=== PATIENT | female | born 1980 | race Caucasian/White ===

== ENCOUNTER → 2021-03-24 14:32 | Outpatient (BNVA) | payer OTHER, SELFPAY | PROVIDERS: PCP Family Medicine; Visit Provider Surgery Vascular Surgery | DX: I73.9 Peripheral vascular disease, unspecified (principal); E11.9 Type 2 diabetes mellitus without complications; E78.00 Pure hypercholesterolemia, unspecified; I83.11 Varicose veins of right lower extremity with inflammation; F17.210 Nicotine dependence, cigarettes, uncomplicated; Z88.2 Allergy status to sulfonamides | CPT/HCPCS: 99202 ==

== ENCOUNTER 2021-04-16 10:24 | Outpatient (REF) | payer OTHER, SELFPAY ==
--- NOTE | ~2021-04-16 | US_ITS ---
EXAMINATION: BILATERAL LOWER EXTREMITY VENOUS ULTRASOUND (Reflux Exam) CLINICAL INDICATION: This is a 40-year-old female with venous insufficiency and varicose veins. COMPARISON: None. TECHNIQUE: Color flow triplex imaging and compression Doppler was performed to evaluate both the deep and the superficial systems bilaterally. To evaluate the superficial system, the examination was performed in the upright position. Color-flow Doppler ultrasound and compression ultrasound were utilized. In addition, maneuvers were utilized to demonstrate reflux. FINDINGS: 1. DEEP VENOUS ULTRASOUND OF THE RIGHT LOWER EXTREMITY: Common Femoral Vein: Compressible, normal respiratory variation and augmented flow. Femoral vein: Compressible, normal color flow and augmentation. Popliteal Vein: Compressible, normal augmentation. Deep Reflux: There is no evidence of reflux in the deep system in either the common femoral vein or the popliteal vein. . There is no evidence of a Boucher's cyst. 2. SUPERFICIAL ULTRASOUND WITH DOPPLER OF RIGHT LOWER EXTREMITY GREAT SAPHENOUS VEIN: Saphenofemoral junction: 0.6 cm. The reflux time is 1888 ms. Mid thigh: 0.5 cm. The reflux time is 2304 ms. Above knee: 0.5 cm. The reflux time is 3392 ms. Below knee: 0.4 cm. The reflux time is 2024 ms Mid calf: 0.3 cm. The reflux time is 700 ms. Ankle: 0.2 cm. The reflux time is 1236 ms GSV REFLUX: There is reflux throughout the great saphenous vein starting at the saphenofemoral junction. DUPLICATED GREAT SAPHENOUS VEIN: There is a duplicated lateral great saphenous vein measures 0.3 cm without reflux. SMALL SAPHENOUS VEIN: Upper: 0.1 cm Lower: Your 0.1 cm SSV REFLUX: No evidence of reflux. VEIN OF GIACOMINI: None Imaged. PERFORATORS: There is a 0.2 cm distal thigh diamond cleaner with the reflux time 1032 ms. VARICOSITIES: There are 0.6 cm varicose veins at the knee with reflux time of 2656 ms. There are mid calf 0.2 cm varicose veins with reflux time 1916 ms. 3. DEEP VENOUS ULTRASOUND OF THE LEFT LOWER EXTREMITY: Common Femoral Vein: Compressible, normal respiratory variation and augmented flow. Femoral vein: Compressible, normal color flow and augmentation. Popliteal Vein: Compressible, normal augmentation. Deep Reflux: There is no evidence of reflux in the deep system in either the common femoral vein or the popliteal vein. There is no evidence of a Boucher's cyst. 4. SUPERFICIAL ULTRASOUND WITH DOPPLER OF LEFT LOWER EXTREMITY GREAT SAPHENOUS VEIN: Saphenofemoral junction: 0.5 cm. The reflux time is 1856 ms Mid thigh: 0.2 cm. There is no reflux. Above knee: 0.2 cm. There is no reflux. Below knee: 0.3 cm. The reflux time is 3252 ms. Mid calf: 0.2 cm. The reflux time is 2012 ms. Ankle: 0.2 cm. There is no reflux. GSV REFLUX: There is reflux in the great saphenous vein beginning at the saphenofemoral junction. DUPLICATED GREAT SAPHENOUS VEIN: There is a duplicated lateral great saphenous vein measuring 0.5 cm without evidence of reflux. SMALL SAPHENOUS VEIN: Upper: 0.2 cm Lower: 0.1 cm SSV REFLUX: No evidence of reflux. VEIN OF GIACOMINI: None Imaged. PERFORATORS: None Imaged VARICOSITIES: There are 0.2 cm varicose veins in the mid thigh, proximal thigh, at the knee and the mid calf with greater than 3 seconds of reflux throughout. US/US venous duplex LE BI IMPRESSION: 1. There is a patent right great saphenous vein with reflux throughout but beginning at the saphenofemoral junction. 2. There is a patent right small saphenous vein without evidence of reflux. 3. There are varicose veins measuring 0.6 cm at the knee with greater than 2656 ms of reflux. 4. There is a patent left great saphenous vein with reflux throughout but beginning at the saphenofemoral junction. 5. There is a patent left small saphenous vein without evidence of reflux. 6. There are 0.2 cm varicose veins throughout the left lower extremity with greater than 3 seconds of reflux.
== END 2021-04-16 10:25 | disposition home or self-care (01) ==
LOC: HO.US 10:24
PROVIDERS: Visit Provider Surgery Vascular Surgery
DX: I83.893 Varicose veins of bilateral lower extremities with other complications (principal); I83.11 Varicose veins of right lower extremity with inflammation
CPT/HCPCS: 93970

== ENCOUNTER 2021-04-27 13:30 | Outpatient (REF) | payer OTHER, SELFPAY ==
--- NOTE | ~2021-04-27 | US_ITS ---
EXAMINATION: COLOR-FLOW DUPLEX IMAGING OF THE BILATERAL LOWER EXTREMITY ARTERIAL SYSTEM. VELOCITY MEASUREMENTS THROUGHOUT THE FEMORAL ARTERIES WITH ANKLE-BRACHIAL PERIPHERAL ARTERIAL TESTING. Interventional Radiologist: Miguel Wray M.D., F.S.I.R., F.A.C.R. CLINICAL INFORMATION: This is a 40-year-old female with history of diabetes. Peripheral vascular disease. Claudication. RIGHT FEMORAL RUNOFF VELOCITIES: The right common femoral artery measures 232 cm/s and triphasic. The right profunda femoral artery is 152 cm/s and is triphasic. Right proximal superficial femoral artery measures 158 cm/s and monophasic. Mid superficial femoral artery is 286 cm/s and monophasic. Distal right superficial femoral artery measures 103 cm/s and is monophasic. Right popliteal velocity measures 68 cm/s and is triphasic. The posterior tibial artery velocity measures 42 cm/s and was monophasic. The right ankle-brachial index is 0.57. The waveforms appear depressed. LEFT FEMORAL RUNOFF VELOCITIES: The left common femoral artery measures 190 cm/s and triphasic. The left profunda femoral artery is 182 cm/s and is triphasic. Left proximal superficial femoral artery measures 162 cm/s and triphasic. Mid superficial femoral artery is 64 cm/s and biphasic. Distal left superficial femoral artery measures 101 cm/s and is monophasic. Left popliteal velocity measures 47 cm/s and is biphasic. The posterior tibial artery velocity measures 44 cm/s and was monophasic. The left ankle-brachial index is 0.46. The waveforms appear to press. US/US [place] complete IMPRESSION: 1. Abnormal peripheral arterial testing with abnormal bilateral ankle-brachial index and velocity measurements. 2. There is likely a high-grade right superficial femoral artery stenoses. 3. There is likely hemodynamically significant stenosis within the right common femoral artery. 4. There is likely hemodynamically significant stenosis within the left superficial femoral artery.
--- NOTE | ~2021-04-27 | US_ITS ---
EXAMINATION: COLOR-FLOW DUPLEX IMAGING OF THE BILATERAL LOWER EXTREMITY ARTERIAL SYSTEM. VELOCITY MEASUREMENTS THROUGHOUT THE FEMORAL ARTERIES WITH ANKLE-BRACHIAL PERIPHERAL ARTERIAL TESTING. Interventional Radiologist: Miguel Wray M.D., F.S.I.R., F.A.C.R. CLINICAL INFORMATION: This is a 40-year-old female with history of diabetes. Peripheral vascular disease. Claudication. RIGHT FEMORAL RUNOFF VELOCITIES: The right common femoral artery measures 232 cm/s and triphasic. The right profunda femoral artery is 152 cm/s and is triphasic. Right proximal superficial femoral artery measures 158 cm/s and monophasic. Mid superficial femoral artery is 286 cm/s and monophasic. Distal right superficial femoral artery measures 103 cm/s and is monophasic. Right popliteal velocity measures 68 cm/s and is triphasic. The posterior tibial artery velocity measures 42 cm/s and was monophasic. The right ankle-brachial index is 0.57. The waveforms appear depressed. LEFT FEMORAL RUNOFF VELOCITIES: The left common femoral artery measures 190 cm/s and triphasic. The left profunda femoral artery is 182 cm/s and is triphasic. Left proximal superficial femoral artery measures 162 cm/s and triphasic. Mid superficial femoral artery is 64 cm/s and biphasic. Distal left superficial femoral artery measures 101 cm/s and is monophasic. Left popliteal velocity measures 47 cm/s and is biphasic. The posterior tibial artery velocity measures 44 cm/s and was monophasic. The left ankle-brachial index is 0.46. The waveforms appear to press. US/US arterial duplex LE BI IMPRESSION: 1. Abnormal peripheral arterial testing with abnormal bilateral ankle-brachial index and velocity measurements. 2. There is likely a high-grade right superficial femoral artery stenoses. 3. There is likely hemodynamically significant stenosis within the right common femoral artery. 4. There is likely hemodynamically significant stenosis within the left superficial femoral artery.
== END 2021-04-27 13:31 | disposition home or self-care (01) ==
LOC: HO.US 13:30
PROVIDERS: Visit Provider Surgery Vascular Surgery
DX: I70.213 Atherosclerosis of native arteries of extremities with intermittent claudication, bilateral legs (principal)
CPT/HCPCS: 93923; 93925

== ENCOUNTER → 2021-04-30 11:12 | Outpatient (BNVA) | payer OTHER, SELFPAY | PROVIDERS: PCP Family Medicine; Visit Provider Surgery Vascular Surgery | DX: I83.11 Varicose veins of right lower extremity with inflammation (principal); I73.9 Peripheral vascular disease, unspecified; E11.9 Type 2 diabetes mellitus without complications; E78.00 Pure hypercholesterolemia, unspecified; F17.210 Nicotine dependence, cigarettes, uncomplicated; Z88.2 Allergy status to sulfonamides | CPT/HCPCS: 99212 ==

== ENCOUNTER 2021-05-07 08:31 | Outpatient (REF) | payer OTHER, SELFPAY ==
[2021-05-07 11:36] LABS: Alanine Aminotransferase 17 U/L (0-31); Albumin Level 3.8 g/dL (3.5-5.0); Alkaline Phosphatase 105 U/L (39-117); Anion Gap 15 (12-20); Aspartate Amino Transferase 12 U/L (5-31); Bilirubin Total 0.5 mg/dL (0.0-1.0); Blood Urea Nitrogen 12 mg/dL (9-16); Calcium 9.2 mg/dL (8.4-10.2); Carbon Dioxide 23 mmol/L (22-29); Chloride 104 mmol/L (96-108); Cholesterol 195 mg/dL; Estimated Glomerular Filt Rate > 60; Glucose Fasting 240 mg/dL (60-99); HDL Cholesterol 42 mg/dL; LDL Cholesterol Calculated 103 mg/dl; Potassium 4.6 mmol/L (3.3-5.1); Sodium 137 mmol/L (135-145); Total Protein 6.7 g/dL (6.5-8.0); Triglycerides 250 mg/dL
[2021-05-07 11:49] LABS: TSH reflex Free T4 0.68 uIU/mL (0.32-4.0)
[2021-05-07 12:12] LABS: Creatinine Urine 44.58 mg/dL; Microalbum/Creatinine Ratio Ur 224.3 ug/mg cr
== END 2021-05-07 08:32 | disposition home or self-care (01) ==
LOC: HO.WFDLDS 08:31
PROVIDERS: Visit Provider Family Medicine
DX: Z00.00 Encounter for general adult medical examination without abnormal findings (principal); E11.9 Type 2 diabetes mellitus without complications; E78.00 Pure hypercholesterolemia, unspecified; I10 Essential (primary) hypertension; I73.9 Peripheral vascular disease, unspecified
CPT/HCPCS: 36415; 80053; 80061; 82043; 84443

== ENCOUNTER → 2021-05-08 08:28 | Outpatient (BNVA) | payer OTHER, SELFPAY | PROVIDERS: PCP Family Medicine; Referring Provider Family Medicine; Visit Provider Surgery Vascular Surgery | DX: I83.11 Varicose veins of right lower extremity with inflammation (principal) | CPT/HCPCS: 36482 ==

== ENCOUNTER 2021-05-11 10:57 | Outpatient (REF) | payer OTHER, SELFPAY ==
--- NOTE | ~2021-05-11 | US_ITS ---
EXAMINATION: US VENOUS ULTRASOUND WITH DOPPLER LOWER EXTREMITY, RIGHT CLINICAL INFORMATION: Post venous procedure COMPARISON: Previous lower extremity ultrasound 04/16/2021 TECHNIQUE: Ultrasound of the deep veins is performed from the hip to the calf with compression sonography and color and pulse Doppler assessment. Spectral analysis with color-flow imaging is performed. FINDINGS: There is normal venous compression and respiratory variation and augmented flow. The visualized common femoral vein, superficial femoral vein, profunda femoral vein, popliteal vein, and the trifurcation region shows no evidence of deep venous thrombosis. There is echogenic material seen in the greater saphenous vein post venous procedure. This is 4.1 cm from the saphenofemoral junction. US/US venous duplex LE RT IMPRESSION: No DVT demonstrated in the right lower extremity.
== END 2021-05-11 10:58 | disposition home or self-care (01) ==
LOC: HO.US 10:57
PROVIDERS: Visit Provider Surgery Vascular Surgery
DX: M79.604 Pain in right leg (principal)
CPT/HCPCS: 93971

== ENCOUNTER → 2021-06-09 10:57 | Outpatient (BNVA) | payer OTHER, SELFPAY | PROVIDERS: PCP Family Medicine; Visit Provider Surgery Vascular Surgery ==

== ENCOUNTER 2021-08-24 12:15 | Outpatient (REF) | payer OTHER, SELFPAY ==
[2021-08-24 14:13] LABS: Estimated Average Glucose 194 mg/dL; Hemoglobin A1c % 8.4 %
== END 2021-08-24 12:16 | disposition home or self-care (01) ==
LOC: HO.WFDLDS 12:15
PROVIDERS: Visit Provider Family Medicine
DX: R73.01 Impaired fasting glucose (principal)
CPT/HCPCS: 36415; 83036

== ENCOUNTER 2021-12-21 09:52 | Outpatient (REF) | payer OTHER, SELFPAY ==
--- NOTE | ~2021-12-21 | US_ITS ---
EXAMINATION: NONINVASIVE ASSESSMENT OF THE ARTERIES OF BOTH LOWER EXTREMITIES INCLUDING PVR EXAM AND BILATERAL LOWER EXTREMITY DUPLEX. CLINICAL INFORMATION: Peripheral vascular disease COMPARISON: Arterial duplex on 04/27/2021 TECHNIQUE: Ankle pulse volume recordings, ankle pressure measurements and ankle brachial indices were obtained of the lower extremity arterial system bilaterally in addition to duplex Doppler techniques with wave form analysis and measurement of velocities in the common femoral, profunda femoral, superficial femoral, popliteal, tibial and peroneal arteries. The study was performed only at rest. FINDINGS: RIGHT LEG 1. THE RIGHT ANKLE-BRACHIAL INDEX IS: 0.57 (higher of the DP/PT) >0.97-1.25 = normal - no significant arterial disease 0.75-0.96 = mild peripheral arterial disease 0.5-0.74 = moderate peripheral arterial disease <0.50 = severe peripheral arterial disease <0.30 = critical arterial disease 2. SEGMENTAL PRESSURES (mmHg): Ankle: PT 98, DP 86 3. PVR WAVEFORMS: Ankle: Monophasic 4. DIRECT DUPLEX: Common femoral artery: 190 cm/s, monophasic Profunda femoris artery: 128 cm/s, biphasic Superficial femoral artery (proximal): 121 cm/s, monophasic Superficial femoral artery (mid): 127 cm/s, monophasic Superficial femoral artery (distal): 110 cm/s, monophasic Proximal Popliteal artery: 68 cm/s, monophasic Mid posterior tibial artery: 25 cm/s, monophasic There is a right SFA collateral in the mid thigh with retrograde flow. LEFT LE. THE LEFT ANKLE-BRACHIAL INDEX IS: 0.48 (higher of the DP/PT) >0.97-1.25 = normal - no significant arterial disease 0.75-0.96 = mild peripheral arterial disease 0.5-0.74 = moderate peripheral arterial disease <0.50 = severe peripheral arterial disease <0.30 = critical arterial disease 2. SEGMENTAL PRESSURES: Ankle: PT 83, DP 79 3. PVR WAVEFORMS: Ankle: Monophasic 4. DIRECT DUPLEX: Common femoral artery: 254 cm/s, monophasic Profunda femoris artery: 120 cm/s, monophasic Superficial femoral artery (proximal): 182 cm/s, monophasic Superficial femoral artery (mid): 65 cm/s, monophasic Superficial femoral artery (distal): 67 cm/s, monophasic Proximal Popliteal artery: 45 cm/s, monophasic Mid posterior tibial artery: 32 cm/s, monophasic There is a left SFA collateral in the mid thigh. US/US arterial duplex LE BI IMPRESSION: 1. Bilateral decreased MONROE suggesting bilateral moderate peripheral arterial disease. 2. Hemodynamically significant stenosis in the bilateral common femoral arteries. 3. Monophasic flow throughout the bilateral lower extremities suggests proximal stenosis. Consider CTA or MRA for further evaluation of the abdominal aorta and iliofemoral arteries.
== END 2021-12-21 09:53 | disposition home or self-care (01) ==
LOC: HO.US 09:52
PROVIDERS: Visit Provider Surgery Vascular Surgery
DX: I73.9 Peripheral vascular disease, unspecified (principal)
CPT/HCPCS: 93925

== ENCOUNTER → 2021-12-31 13:11 | Outpatient (BNVA) | payer OTHER, SELFPAY | PROVIDERS: PCP Family Medicine; Visit Provider Surgery Vascular Surgery | DX: I73.9 Peripheral vascular disease, unspecified (principal); E11.9 Type 2 diabetes mellitus without complications | CPT/HCPCS: 99212 ==

== ENCOUNTER 2022-01-15 07:09 | Outpatient (REF) | payer OTHER, SELFPAY ==
--- NOTE | ~2022-01-15 | XR_ITS ---
EXAMINATION: BILATERAL SHOULDER. CLINICAL INFORMATION: Pain and bladder. COMPARISON: None TECHNIQUE: 3 views each shoulder. FINDINGS: Right shoulder: There is no visible acute fracture, dislocation or subluxation. The glenohumeral and AC joint space is maintained normal. No bony erosive changes seen. The soft tissues are normal. Left shoulder: There is no visible acute fracture, dislocation or subluxation seen. There is no bony erosive changes. The soft tissues are normal. XR/XR shoulder LT min 2V IMPRESSION: Unremarkable bilateral shoulder exam.
--- NOTE | ~2022-01-15 | XR_ITS ---
EXAMINATION: BILATERAL SHOULDER. CLINICAL INFORMATION: Pain and bladder. COMPARISON: None TECHNIQUE: 3 views each shoulder. FINDINGS: Right shoulder: There is no visible acute fracture, dislocation or subluxation. The glenohumeral and AC joint space is maintained normal. No bony erosive changes seen. The soft tissues are normal. Left shoulder: There is no visible acute fracture, dislocation or subluxation seen. There is no bony erosive changes. The soft tissues are normal. XR/XR shoulder RT min 2V IMPRESSION: Unremarkable bilateral shoulder exam.
== END 2022-01-15 07:10 | disposition home or self-care (01) ==
LOC: HO.HOSX 07:09
PROVIDERS: Visit Provider Physician Assistant
DX: M75.01 Adhesive capsulitis of right shoulder (principal); M75.02 Adhesive capsulitis of left shoulder
CPT/HCPCS: 73030; 99202

== ENCOUNTER → 2022-02-12 10:41 | Outpatient (BNVA) | payer OTHER, SELFPAY | PROVIDERS: PCP Family Medicine; Visit Provider Internal Medicine Endocrinology, Diabetes & Metabolism | DX: E11.65 Type 2 diabetes mellitus with hyperglycemia (principal); Z79.4 Long term (current) use of insulin | CPT/HCPCS: 82947; 99202 ==

== ENCOUNTER 2022-02-25 09:35 | Outpatient (REF) | payer OTHER, SELFPAY ==
[2022-02-25 11:45] LABS: Anion Gap 13 (12-20); Blood Urea Nitrogen 14 mg/dL (9-16); Calcium 8.9 mg/dL (8.4-10.2); Carbon Dioxide 23 mmol/L (22-29); Chloride 104 mmol/L (96-108); Cholesterol 167 mg/dL; Estimated Glomerular Filt Rate > 60; Glucose Random 110 mg/dL (60-115); HDL Cholesterol 41 mg/dL; LDL Cholesterol Calculated 83 mg/dl; Potassium 4.8 mmol/L (3.3-5.1); Sodium 135 mmol/L (135-145); Triglycerides 219 mg/dL
[2022-02-25 11:47] LABS: Creatinine Urine 108.81 mg/dL; Microalbum/Creatinine Ratio Ur 265.6 ug/mg cr
== END 2022-02-25 09:36 | disposition home or self-care (01) ==
LOC: HO.WFDLDS 09:35
PROVIDERS: Visit Provider Internal Medicine Endocrinology, Diabetes & Metabolism
DX: E11.65 Type 2 diabetes mellitus with hyperglycemia (principal); Z79.4 Long term (current) use of insulin
CPT/HCPCS: 36415; 80048; 80061; 82043

== ENCOUNTER → 2022-03-01 08:02 | Outpatient (BNVA) | payer OTHER, SELFPAY | PROVIDERS: PCP Family Medicine; Visit Provider Registered Nurse Diabetes Educator | DX: E11.65 Type 2 diabetes mellitus with hyperglycemia (principal); Z79.4 Long term (current) use of insulin | CPT/HCPCS: 99211 ==

== ENCOUNTER → 2022-03-18 13:28 | Outpatient (BNVA) | payer OTHER, SELFPAY | PROVIDERS: PCP Family Medicine; Visit Provider Registered Nurse Diabetes Educator | DX: E11.65 Type 2 diabetes mellitus with hyperglycemia (principal); Z79.4 Long term (current) use of insulin | CPT/HCPCS: 99211 ==

== ENCOUNTER 2022-04-02 09:00 | Outpatient (RCR) | payer OTHER, SELFPAY | END 2022-05-25 14:36 | disposition home or self-care (01) | LOC: HO.PTWFD 09:00 | PROVIDERS: PCP Family Medicine; Visit Provider Physician Assistant | DX: M75.01 Adhesive capsulitis of right shoulder (principal); M75.02 Adhesive capsulitis of left shoulder; M25.511 Pain in right shoulder | CPT/HCPCS: 97110; 97140; 97161 ==

== ENCOUNTER → 2022-04-05 13:28 | Outpatient (BNVA) | payer OTHER, SELFPAY | PROVIDERS: PCP Family Medicine; Visit Provider Registered Nurse Diabetes Educator | DX: E11.65 Type 2 diabetes mellitus with hyperglycemia (principal); Z79.4 Long term (current) use of insulin | CPT/HCPCS: 99211 ==

== ENCOUNTER → 2022-05-27 13:37 | Outpatient (BNVA) | payer OTHER, SELFPAY | PROVIDERS: PCP Family Medicine; Visit Provider Internal Medicine Endocrinology, Diabetes & Metabolism | DX: E11.65 Type 2 diabetes mellitus with hyperglycemia (principal); Z79.4 Long term (current) use of insulin | CPT/HCPCS: 82947; 99212 ==

== ENCOUNTER 2022-06-22 11:27 | Outpatient (REF) | payer OTHER, SELFPAY ==
[2022-06-22 13:59] LABS: MANUAL DIFF FLAG NO
[2022-06-22 14:04] LABS: Basophils Absolute Auto 0.1 X10*3/uL (0.0-0.2); Basophils Percent Auto 0.5 % (0-2); Eosinophils Absolute Auto 0.8 X10*3/uL (0.0-0.4); Eosinophils Percent Auto 6.4 % (0-4); Hematocrit 36.9 % (37.0-47.0); Hemoglobin 11.9 g/dl (12.0-16.0); Imm Gran Abs Auto 0.04 X10*3/uL (0.00-0.03); Imm Gran Pct Auto 0.3 % (0.0-0.4); Lymphocytes Absolute Auto 2.9 X10*3/uL (1.2-4.9); Lymphocytes Percent Auto 23.1 % (20-40); Mean Corpuscular HGB Conc 32.2 g/dl (31.0-35.0); Mean Corpuscular Hemoglobin 28.9 pg (27.0-33.0); Mean Corpuscular Volume 89.6 fL (80.0-98.0); Mean Platelet Volume 10.5 fL (9.4-12.3); Neutrophils Absolute Auto 7.8 x10*3/uL (2.0-8.3); Neutrophils Percent Auto 61.7 % (45-73); Platelet Count 454 X10*3/uL (160-400); Red Blood Count 4.12 X10*6/uL (4.20-5.50); Red Cell Distribution Width 13.5 % (11.0-16.0); White Blood Count 12.7 X10*3/uL (4.8-10.8)
[2022-06-22 14:12] LABS: Estimated Average Glucose 134 mg/dL; Hemoglobin A1c % 6.3 %
[2022-06-22 14:39] LABS: Alanine Aminotransferase 33 U/L (0-31); Alkaline Phosphatase 90 U/L (39-117); Anion Gap 18 (12-20); Aspartate Amino Transferase 21 U/L (5-31); Bilirubin Total 0.2 mg/dL (0.0-1.0); Blood Urea Nitrogen 11 mg/dL (9-16); Calcium 9.4 mg/dL (8.4-10.2); Carbon Dioxide 25 mmol/L (22-29); Chloride 100 mmol/L (96-108); Estimated Glomerular Filt Rate > 60; Glucose Random 205 mg/dL (60-115); Potassium 4.5 mmol/L (3.3-5.1); Sodium 138 mmol/L (135-145)
[2022-06-22 14:53] LABS: TSH reflex Free T4 0.35 uIU/mL (0.32-4.0)
== END 2022-06-22 11:28 | disposition home or self-care (01) ==
LOC: HO.WFDLDS 11:27
PROVIDERS: Visit Provider Family Medicine
DX: Z00.00 Encounter for general adult medical examination without abnormal findings (principal); E11.65 Type 2 diabetes mellitus with hyperglycemia; Z79.4 Long term (current) use of insulin
CPT/HCPCS: 36415; 80053; 83036; 84443; 85025

== ENCOUNTER → 2022-09-01 09:50 | Outpatient (BNVA) | payer OTHER, SELFPAY | PROVIDERS: PCP Family Medicine; Referring Provider Family Medicine; Visit Provider Internal Medicine Cardiovascular Disease | DX: I48.0 Paroxysmal atrial fibrillation (principal); G47.10 Hypersomnia, unspecified; E11.9 Type 2 diabetes mellitus without complications; Z79.4 Long term (current) use of insulin | CPT/HCPCS: 93005; 99202 ==

== ENCOUNTER → 2022-09-08 09:59 | Outpatient (BNVA) | payer OTHER, SELFPAY | PROVIDERS: PCP Family Medicine; Visit Provider Internal Medicine Endocrinology, Diabetes & Metabolism | DX: E11.65 Type 2 diabetes mellitus with hyperglycemia (principal); Z79.4 Long term (current) use of insulin | CPT/HCPCS: 82947; 99212 ==

== ENCOUNTER → 2022-09-09 10:55 | Outpatient (REF) | payer OTHER, SELFPAY | LOC: HO.SL 10:55 | PROVIDERS: PCP Family Medicine; Visit Provider Internal Medicine Cardiovascular Disease | DX: G47.10 Hypersomnia, unspecified (principal); R06.83 Snoring; I48.0 Paroxysmal atrial fibrillation | CPT/HCPCS: 95806 ==

== ENCOUNTER → 2022-09-23 11:03 | Outpatient (REF) | payer OTHER, SELFPAY ==
--- NOTE | 2022-09-23 11:07 | HM_ITS ---
* Total monitoring time 3 days. * Underlying rhythm is sinus. Average ventricular rate 102/Min. Range 91 to 124/Min. * About 63% the time, rate greater than 100/Min. * Very rare PACs/PVCs. * No significant pauses or AV blocks. * Patient marker used once in association with mild sinus tachycardia. MTDD
== END ==
LOC: HO.CARD 11:03
PROVIDERS: Visit Provider Internal Medicine Cardiovascular Disease
DX: I48.0 Paroxysmal atrial fibrillation (principal)
CPT/HCPCS: 93242

== ENCOUNTER 2022-09-27 13:29 | Outpatient (REF) | payer OTHER, SELFPAY ==
[2022-09-27 14:52] LABS: Appearance Urine Clear; Color Urine Yellow; Glucose Urine UA >=1000 mg/dL (Negative); Leukocyte Esterase Urine Negative (Negative); Nitrite Urine Negative (Negative); Specific Gravity - Urine >= 1.030 (1.005-1.025); UMIC TRIGGER UA YES; Urine Blood Trace (Negative); Urine Ketones Trace mg/dL (Negative); Urine Protein 100 (2+) mg/dL (Neg-Trace)
[2022-09-27 15:00] LABS: Anion Gap 16 (12-20); Blood Urea Nitrogen 9 mg/dL (9-16); Calcium 9.8 mg/dL (8.4-10.2); Carbon Dioxide 26 mmol/L (22-29); Chloride 101 mmol/L (96-108); Estimated Glomerular Filt Rate > 60; Glucose Random 102 mg/dL (60-115); Potassium 4.9 mmol/L (3.3-5.1); Sodium 138 mmol/L (135-145)
[2022-09-27 15:08] LABS: Bacteria Urine Trace (None Seen); Hyaline Casts Urine 0-2 /LPF (0-2); RBC Urine 0-2 /HPF (0-2); WBC Urine 0-5 /HPF (0-5)
[2022-09-27 15:11] LABS: Creatinine Urine 160.66 mg/dL; Microalbum/Creatinine Ratio Ur 242.7 ug/mg cr
[2022-09-27 15:11] LABS: Estimated Average Glucose 128 mg/dL; Hemoglobin A1c % 6.1 %
== END 2022-09-27 13:30 | disposition home or self-care (01) ==
LOC: HO.LAB 13:29
PROVIDERS: PCP Family Medicine; Visit Provider Internal Medicine Endocrinology, Diabetes & Metabolism
DX: E11.65 Type 2 diabetes mellitus with hyperglycemia (principal); I10 Essential (primary) hypertension; Z79.4 Long term (current) use of insulin
CPT/HCPCS: 36415; 80048; 81001; 82043; 83036

== ENCOUNTER → 2022-10-26 09:53 | Outpatient (BNVA) | payer OTHER, SELFPAY | PROVIDERS: PCP Family Medicine; Referring Provider Family Medicine; Visit Provider Internal Medicine Cardiovascular Disease | DX: I48.0 Paroxysmal atrial fibrillation (principal); I10 Essential (primary) hypertension | CPT/HCPCS: 99212 ==

== ENCOUNTER 2022-11-05 09:17 | Outpatient (REF) | payer OTHER, SELFPAY ==
[2022-11-05 12:55] LABS: Influenza A PCR NEGATIVE (Negative); Influenza B PCR NEGATIVE (Negative); Resp Syncy Virus RNA Qual PCR NEGATIVE (Negative); SARS COV2 PCR INHOUSE NEGATIVE (Negative)
== END 2022-11-05 09:18 | disposition home or self-care (01) ==
LOC: HO.LAB 09:17
PROVIDERS: Visit Provider Nurse Practitioner Family
DX: R09.89 Other specified symptoms and signs involving the circulatory and respiratory systems (principal); Z20.822 Contact with and (suspected) exposure to COVID-19
CPT/HCPCS: 0241U

== ENCOUNTER 2022-12-14 09:53 | Outpatient (REF) | payer OTHER, SELFPAY ==
--- NOTE | ~2022-12-14 | US_ITS ---
EXAMINATION: Noninvasive assessment of the bilateral lower extremities with ARTERIAL DUPLEX and ANKLE BRACHIAL INDICES (ABIs). CLINICAL INFORMATION: Peripheral vascular disease TECHNIQUE: Duplex Doppler techniques with waveform analysis and measurement of velocities in the bilateral common femoral, profunda femoris, superficial femoral, popliteal and tibial arteries were performed. Additionally, ankle pulse volume recordings, ankle pressure measurements and ankle brachial indices were obtained of the lower extremity arterial system bilaterally. The study was performed only at rest. COMPARISON: 12/21/2021 and 04/27/2021 FINDINGS: DIRECT DUPLEX DOPPLER FINDINGS: RIGHT LEG: Common femoral artery: 223 cm/s, phasicity: Triphasic Profunda femoris artery: 145 cm/s, phasicity: Triphasic Superficial femoral artery (proximal): 141 cm/s, phasicity: Monophasic Superficial femoral artery (mid): 126 cm/s, phasicity: Monophasic Superficial femoral artery (distal): 99.8 cm/s, phasicity: Monophasic Popliteal artery: 74.5 cm/s, phasicity: Monophasic Posterior tibial artery: 60.4 cm/s, phasicity: Monophasic Peroneal artery: Not visualized LEFT LEG: Common femoral artery: 170 cm/s, phasicity: Triphasic Profunda femoris artery: 152 cm/s, phasicity: Triphasic Superficial femoral artery (proximal): 327 cm/s, phasicity: Monophasic. Large amount of noncalcified plaque is seen Superficial femoral artery (mid): Occluded Superficial femoral artery (distal): 294 cm/s, phasicity: Monophasic Popliteal artery: 48.7 cm/s, phasicity: Biphasic Posterior tibial artery: 51.1 cm/s, phasicity: Monophasic Peroneal artery: Not visualized ANKLE-BRACHIAL INDEX: Right: 0.61?previously measuring 0.57 Left: 0.47. Previously measuring 0.46 ANKLE PRESSURES: Right: PT 95, DP 87 Left: PT?73, DP?71 ANKLE PVR WAVEFORMS: Right: Abnormal Left: Abnormal US/US arterial duplex LE BI IMPRESSION: Right leg: Moderately decreased ankle brachial index which is stable. Patent but monophasic flow seen throughout the right superficial femoral artery, popliteal artery and below-knee runoff vessels Left leg: Severely decreased ankle brachial index which is stable. There is a short segment occlusion of the [place] superficial femoral artery with reconstituted flow in the distal superficial femoral artery. Underlying stenosis noted in the more proximal and distal superficial femoral artery. [place] Reference: - >1.4 = calcified vessels - 0.9 - 1.4 = normal - no significant arterial disease - 0.7 - 0.89 = mild peripheral arterial disease - 0.51 - 0.69 = moderate peripheral arterial disease - ? 0.50 = severe peripheral arterial disease - < .30 = critical arterial disease
--- NOTE | ~2022-12-14 | US_ITS ---
EXAMINATION: Noninvasive assessment of the bilateral lower extremities with ARTERIAL DUPLEX and ANKLE BRACHIAL INDICES (ABIs). CLINICAL INFORMATION: Peripheral vascular disease TECHNIQUE: Duplex Doppler techniques with waveform analysis and measurement of velocities in the bilateral common femoral, profunda femoris, superficial femoral, popliteal and tibial arteries were performed. Additionally, ankle pulse volume recordings, ankle pressure measurements and ankle brachial indices were obtained of the lower extremity arterial system bilaterally. The study was performed only at rest. COMPARISON: 12/21/2021 and 04/27/2021 FINDINGS: DIRECT DUPLEX DOPPLER FINDINGS: RIGHT LEG: Common femoral artery: 223 cm/s, phasicity: Triphasic Profunda femoris artery: 145 cm/s, phasicity: Triphasic Superficial femoral artery (proximal): 141 cm/s, phasicity: Monophasic Superficial femoral artery (mid): 126 cm/s, phasicity: Monophasic Superficial femoral artery (distal): 99.8 cm/s, phasicity: Monophasic Popliteal artery: 74.5 cm/s, phasicity: Monophasic Posterior tibial artery: 60.4 cm/s, phasicity: Monophasic Peroneal artery: Not visualized LEFT LEG: Common femoral artery: 170 cm/s, phasicity: Triphasic Profunda femoris artery: 152 cm/s, phasicity: Triphasic Superficial femoral artery (proximal): 327 cm/s, phasicity: Monophasic. Large amount of noncalcified plaque is seen Superficial femoral artery (mid): Occluded Superficial femoral artery (distal): 294 cm/s, phasicity: Monophasic Popliteal artery: 48.7 cm/s, phasicity: Biphasic Posterior tibial artery: 51.1 cm/s, phasicity: Monophasic Peroneal artery: Not visualized ANKLE-BRACHIAL INDEX: Right: 0.61?previously measuring 0.57 Left: 0.47. Previously measuring 0.46 ANKLE PRESSURES: Right: PT 95, DP 87 Left: PT?73, DP?71 ANKLE PVR WAVEFORMS: Right: Abnormal Left: Abnormal US/US [place] complete IMPRESSION: Right leg: Moderately decreased ankle brachial index which is stable. Patent but monophasic flow seen throughout the right superficial femoral artery, popliteal artery and below-knee runoff vessels Left leg: Severely decreased ankle brachial index which is stable. There is a short segment occlusion of the [place] superficial femoral artery with reconstituted flow in the distal superficial femoral artery. Underlying stenosis noted in the more proximal and distal superficial femoral artery. [place]ROE Reference: - >1.4 = calcified vessels - 0.9 - 1.4 = normal - no significant arterial disease - 0.7 - 0.89 = mild peripheral arterial disease - 0.51 - 0.69 = moderate peripheral arterial disease - ? 0.50 = severe peripheral arterial disease - < .30 = critical arterial disease
== END 2022-12-14 09:54 | disposition home or self-care (01) ==
LOC: HO.US 09:53
PROVIDERS: PCP Family Medicine; Visit Provider Surgery Vascular Surgery
DX: I70.213 Atherosclerosis of native arteries of extremities with intermittent claudication, bilateral legs (principal)
CPT/HCPCS: 93923; 93925

== ENCOUNTER → 2022-12-17 10:44 | Outpatient (BNVA) | payer OTHER, SELFPAY | PROVIDERS: PCP Family Medicine; Visit Provider Internal Medicine Endocrinology, Diabetes & Metabolism | DX: E11.65 Type 2 diabetes mellitus with hyperglycemia (principal); Z79.4 Long term (current) use of insulin | CPT/HCPCS: 82947; 99212 ==

== ENCOUNTER 2022-12-30 09:56 | Outpatient (REF) | payer OTHER, SELFPAY ==
[2022-12-30 15:28] LABS: CT PCR NOT DETECTED (Not Detect.); NG PCR NOT DETECTED (Not Detect.)
[2023-01-06 04:44] LABS: HPV mRNA E6/E7 rflx Not Detected (Not Detected)
== END 2022-12-30 09:57 | disposition home or self-care (01) ==
LOC: HO.LNP 09:56
PROVIDERS: PCP Family Medicine; Visit Provider Advanced Practice Midwife
DX: Z01.419 Encounter for gynecological examination (general) (routine) without abnormal findings (principal); N92.6 Irregular menstruation, unspecified; I10 Essential (primary) hypertension; I48.91 Unspecified atrial fibrillation; Z79.01 Long term (current) use of anticoagulants; Z20.2 Contact with and (suspected) exposure to infections with a predominantly sexual mode of transmission
CPT/HCPCS: 0353U; 87624; 88142

== ENCOUNTER 2023-01-14 09:28 | Outpatient (REF) | payer OTHER, SELFPAY ==
[2023-01-14 11:21] LABS: MANUAL DIFF FLAG NO
[2023-01-14 11:40] LABS: Basophils Absolute Auto 0.1 X10*3/uL (0.0-0.2); Basophils Percent Auto 0.7 % (0-2); Eosinophils Absolute Auto 0.3 X10*3/uL (0.0-0.4); Eosinophils Percent Auto 2.4 % (0-4); Hematocrit 33.8 % (37.0-47.0); Hemoglobin 10.6 g/dl (12.0-16.0); Imm Gran Abs Auto 0.06 X10*3/uL (0.00-0.03); Imm Gran Pct Auto 0.5 % (0.0-0.4); Lymphocytes Absolute Auto 1.7 X10*3/uL (1.2-4.9); Lymphocytes Percent Auto 14.4 % (20-40); Mean Corpuscular HGB Conc 31.4 g/dl (31.0-35.0); Mean Corpuscular Hemoglobin 27.4 pg (27.0-33.0); Mean Corpuscular Volume 87.3 fL (80.0-98.0); Mean Platelet Volume 10.1 fL (9.4-12.3); Monocytes Absolute Auto 1.4 X10*3/uL (0.1-1.2); Monocytes Percent Auto 11.5 % (2-11); Neutrophils Absolute Auto 8.5 x10*3/uL (2.0-8.3); Neutrophils Percent Auto 70.5 % (45-73); Platelet Count 623 X10*3/uL (160-400); Red Blood Count 3.87 X10*6/uL (4.20-5.50); Red Cell Distribution Width 13.9 % (11.0-16.0); White Blood Count 12.1 X10*3/uL (4.8-10.8)
[2023-01-14 12:41] LABS: Alanine Aminotransferase 18 U/L (0-31); Albumin Level 3.8 g/dL (3.5-5.0); Alkaline Phosphatase 101 U/L (39-117); Anion Gap 15 (12-20); Aspartate Amino Transferase 17 U/L (5-31); Bilirubin Total 0.2 mg/dL (0.0-1.0); Blood Urea Nitrogen 13 mg/dL (9-16); Calcium 9.2 mg/dL (8.4-10.2); Carbon Dioxide 22 mmol/L (22-29); Chloride 105 mmol/L (96-108); Cholesterol 167 mg/dL; Estimated Glomerular Filt Rate > 60; Glucose Fasting 123 mg/dL (60-99); HDL Cholesterol 40 mg/dL; LDL Cholesterol Calculated 88 mg/dl; Sodium 137 mmol/L (135-145); Total Protein 6.8 g/dL (6.5-8.0); Triglycerides 195 mg/dL
[2023-01-14 12:42] LABS: TSH reflex Free T4 0.41 uIU/mL (0.32-4.0); Vitamin D 25-OH Total 25.2 ng/mL (>30)
[2023-01-14 13:06] LABS: Syphilis Screen Nonreactive (Nonreactive)
[2023-01-17 04:43] LABS: HBc Num1 0.08 S/CO (0.00-0.79); HIV AB/AG Nonreactive (Nonreactive); HIV Num 1 0.09 S/CO (0.00-0.99); Hepatitis B Core Antibody Nonreactive (Nonreactive); ~Hepatitis C Antibody Nonreactive (Nonreactive)
== END 2023-01-14 09:29 | disposition home or self-care (01) ==
LOC: HO.WFDLDS 09:28
PROVIDERS: Advanced Practice Midwife; Visit Provider Family Medicine
DX: Z00.00 Encounter for general adult medical examination without abnormal findings (principal); Z11.4 Encounter for screening for human immunodeficiency virus [HIV]; E55.9 Vitamin D deficiency, unspecified; Z20.2 Contact with and (suspected) exposure to infections with a predominantly sexual mode of transmission
CPT/HCPCS: 36415; 80053; 80061; 82306; 84443; 85025; 86704; 86780; 86803; 87389

== ENCOUNTER 2023-01-28 09:33 | Outpatient (REF) | payer OTHER, SELFPAY ==
[2023-01-28 11:38] LABS: MANUAL DIFF FLAG NO
[2023-01-28 12:00] LABS: Basophils Absolute Auto 0.1 X10*3/uL (0.0-0.2); Basophils Percent Auto 0.6 % (0-2); Eosinophils Absolute Auto 0.3 X10*3/uL (0.0-0.4); Eosinophils Percent Auto 2.9 % (0-4); Hematocrit 36.6 % (37.0-47.0); Hemoglobin 11.4 g/dl (12.0-16.0); Imm Gran Abs Auto 0.06 X10*3/uL (0.00-0.03); Imm Gran Pct Auto 0.5 % (0.0-0.4); Lymphocytes Absolute Auto 2.9 X10*3/uL (1.2-4.9); Lymphocytes Percent Auto 25.3 % (20-40); Mean Corpuscular HGB Conc 31.1 g/dl (31.0-35.0); Mean Corpuscular Hemoglobin 26.5 pg (27.0-33.0); Mean Corpuscular Volume 85.1 fL (80.0-98.0); Mean Platelet Volume 10.6 fL (9.4-12.3); Monocytes Percent Auto 8.9 % (2-11); Neutrophils Absolute Auto 7.2 x10*3/uL (2.0-8.3); Neutrophils Percent Auto 61.8 % (45-73); Platelet Count 521 X10*3/uL (160-400); White Blood Count 11.6 X10*3/uL (4.8-10.8)
[2023-01-28 12:32] LABS: Iron 23 mcg/dL (30-160); Percent Iron Saturation 7 % (15-50); Total Iron Binding Capacity 309 mcg/dL (228-428); Unsaturated Iron Binding 286 ug/dL
[2023-01-28 12:45] LABS: Folate 8.4 ng/mL (> or = 4.0); Vitamin B12 386 pg/mL (200-900)
== END 2023-01-28 09:34 | disposition home or self-care (01) ==
LOC: HO.WFDLDS 09:33
PROVIDERS: Visit Provider Family Medicine
DX: Z00.00 Encounter for general adult medical examination without abnormal findings (principal); D64.9 Anemia, unspecified; E53.8 Deficiency of other specified B group vitamins
CPT/HCPCS: 36415; 82607; 82746; 83540; 85025

== ENCOUNTER 2023-02-10 10:31 | Outpatient (REF) | payer OTHER, SELFPAY ==
--- NOTE | ~2023-02-10 | MM_ITS ---
EXAMINATION: MM SCREENING DIGITAL BREAST TOMOSYNTHESIS, BILATERAL CLINICAL INFORMATION: Screening. Asymptomatic. Age 42. No prior breast imaging. No known family history breast cancer. The lifetime risk of breast cancer based on the Tyrer-Cuzick Model is 11%. COMPARISON: None (current study represents initial baseline exam). TECHNIQUE: Digital breast tomosynthesis is performed in both the craniocaudal and mediolateral oblique views along with computer-aided detection (CAD). Synthesized 2D images are generated from the tomosynthesis. FINDINGS: There are scattered areas of fibroglandular density (ACR BI-RADS breast composition Category b). There is no architectural abnormality or significant mass or focal asymmetric density. There are scattered bilateral punctate and vascular calcifications. The bilateral axilla and skin contours are unremarkable. Left synthesized CC view has greater number of calcifications anterior central and anterior outer breast. There may be superimposed digital processing pseudocalcification artifact contributing to the CC view foci. Patient will be recalled for additional magnification views on the left to fully characterize baseline appearance. MM/MM tomosynthesis screening BI IMPRESSION: Left: -Additional calcifications central anterior and anterolateral breast on synthesized CC view, possibly additional digital processing sagittal calcification artifact. Right: -No mammographic evidence of malignancy. ASSESSMENT: BI-RADS 0: Incomplete - Need Additional Imaging Evaluation RECOMMENDATION: 1. Additional views left breast (magnification CC, magnification ML). 2. Radiology department staff will contact the patient for additional imaging. This patient's information was entered into a reminder system with a target due date for their next mammogram.
== END 2023-02-10 10:32 | disposition home or self-care (01) ==
LOC: HO.MAMMO 10:31
PROVIDERS: PCP Family Medicine; Visit Provider Advanced Practice Midwife
DX: Z12.31 Encounter for screening mammogram for malignant neoplasm of breast (principal)
CPT/HCPCS: 77063; 77067

== ENCOUNTER → 2023-02-17 11:18 | Outpatient (BNVA) | payer OTHER, SELFPAY | PROVIDERS: PCP Family Medicine; Visit Provider Surgery Vascular Surgery | DX: I73.9 Peripheral vascular disease, unspecified (principal) | CPT/HCPCS: 99212 ==

== ENCOUNTER 2023-03-02 10:47 | Outpatient (REF) | payer OTHER, SELFPAY ==
--- NOTE | ~2023-03-02 | MM_ITS ---
EXAMINATION: MM DIAGNOSTIC DIGITAL MAMMOGRAPHY, LEFT CLINICAL INFORMATION: Recall from baseline screening for calcifications central anterior and anterior lateral left breast. COMPARISON: Mammography: 02/10/2023 (baseline). TECHNIQUE: Digital mammography is performed in the following views: Magnification CC, magnification ML FINDINGS: There are scattered areas of fibroglandular density (ACR BI-RADS breast composition Category b). The additional magnification views confirm multiple punctate calcifications in the anterior 3:00 position, in a ductal/segmental distribution approximately 3 cm in length posterior to anterior. There are similar calcifications at 4:00 position of lesser number. Results are discussed with the patient at time of visit. Stereotactic sampling of the calcifications is recommended (1 or 2 sites). At these time patient is uncertain whether she wishes to proceed with the procedure. [facility] to follow-up with patient and PCP. If patient declines tissue sampling, then short interval follow-up left mammography to include magnification views there is recommended. MM/MM added views LT IMPRESSION: Multiple calcifications and segmental/ductal distribution anterior 3:00 left breast with lesser calcifications 4:00. ASSESSMENT: BI-RADS 4: Suspicious RECOMMENDATION: -Recommend stereotactic sampling left breast calcifications (1 or 2 sites). -If patient declines tissue sampling, then short interval six-month follow-up left diagnostic mammography to include magnification views is recommended. This patient's information was entered into a reminder system with a target due date for their next mammogram.
== END 2023-03-02 10:48 | disposition home or self-care (01) ==
LOC: HO.MAMMO 10:47
PROVIDERS: PCP Family Medicine; Visit Provider Advanced Practice Midwife
DX: R92.1 Mammographic calcification found on diagnostic imaging of breast (principal)
CPT/HCPCS: 77065

== ENCOUNTER 2023-03-29 10:52 | Outpatient (AMB) | payer OTHER, SELFPAY ==
[2023-03-29 10:59] VITALS: BP 118/70; PULSE 102; BMI 35.9
--- NOTE | 2023-03-29 10:59 | A.OFFVIS_ITS ---
Intake Vital Signs 03/29/23 10:59 03/29/23 11:08 03/29/23 11:13 03/29/23 11:16 Height 5 ft 2 in Weight 196 lb 3.382 oz BMI 35.9 BP 118/70 143/67 H 138/68 135/63 Blood Pressure Location Lt brachial Lt brachial Lt brachial Lt brachial Position Sitting Supine Sitting Standing Pulse 102 H 96 100 100 Intake Visit Reasons: Side effects from metoprolol, syncope like symptom Intake Note: Follow-up c/o side effects of metoprolol c/o pre syncope patient stopped taking it a few days ago and dizziness stopped Steamer Tender Required: No Allergies Sulfa (Sulfonamide Antibiotics) Allergy (Intermediate, Verified 02/18/23 10:10) rash on face. Medication List - Last Reconciled 03/29/23 by Juan Villeda MD apremilast (Otezla) 30 mg PO BID blood-glucose meter,continuous (Dexcom G6 Manager [employer]) As directed blood-glucose sensor (Dexcom G6 Sensor device) As directed blood-glucose transmitter (Dexcom G6 Transmitter device) As directed clobetasol 0.05% 1 appl topical BID clobetasol 0.05% grams topical dapagliflozin propanediol (Farxiga) 5 mg PO DAILY ferrous sulfate 325 mg PO DAILY 30 days insulin glargine (Lantus Solostar U-100 Insulin) 40 units (0.4 mL) subcut QPM 30 days insulin syringe-needle U-100 (Monoject Insulin Safety Syringe) TEST 3-4 TIMES DAILY levalbuterol tartrate 45 mcg/actuation 2 puffs inhalation Q4-6H PRN 30 days lisinopril 20 mg PO DAILY 90 days metformin 1,000 mg PO BID needle (disp) 30 gauge (Monoject Hypodermic [place]) As directed omeprazole 20 mg PO DAILY 90 days pen needle, diabetic (BD Ultra-Fine Micro Pen Needle) Tst 4 times a day, As directed. 90 days pen needle, diabetic (Novofine 32) 4 times a day As directed, 90 days pen needle, diabetic (BD Belen 2nd Gen Pen Needle) As directed once a day ProAir HFA 90 mcg/actuation (albuterol sulfate) 2 puffs PO Q6H PRN 30 days NS rivaroxaban (Xarelto) 20 mg PO QPM 90 days simvastatin 20 mg PO BEDTIME 90 days tirzepatide (Mounjaro) 2.5 mg (0.5 mL) subcut QWEEK 4 weeks HPI HPI Comments History of Present Illness Details Gloria comes for follow-up. She says in heart weather she gets lightheaded when she is taking metoprolol. She has not taken metoprolol in 2 days and on Tuesday she was up and down and doing activities without any significant symptoms of lightheadedness. No syncopal episodes. No recurrent atrial fibrillation episodes. No bleeding issues or neurologic events. No heart failure symptoms. Denies any exertional chest pain. Blood pressure generally as per her is well controlled. [facility] Medical History Diabetes High cholesterol Uncontrolled type 2 diabetes mellitus with hyperglycemia, with long-term current use of insulin Surgical History No history of previous surgery Family History Mother Diabetes Family history of thyroid problem Father No known health problems Maternal Grandmother Diabetes Paternal Grandmother Diabetes Social History Household Members: Significant Other Household Members Other:: boyfriend Housing: Apartment Patient Tobacco Use Status: Never used Tobacco e-Cigarette/Vaping Use: Never Used Second Hand Smoke Exposure: No service: No Current occupational status: employed Current occupation: [employer] Current occupational exposures/hazards: No Cognitive needs: No Hearing needs: No Vision needs: No Review of Systems Const Denies chills, Denies fatigue, Denies fever(s), Denies frequent falls, Denies weakness, Denies weight gain and Denies weight loss ENT Denies dizziness Card Denies chest pain, Denies leg edema, Denies lightheadedness, Denies palpitations, Denies dyspnea, Denies dyspnea on exertion, Denies orthopnea and Denies other (loss of consciousness) Resp Denies cough, Denies dyspnea and Denies dyspnea on exertion GI Denies hematochezia and Denies change in stool character Musc Denies abnormal gait, Denies muscle weakness, Denies numbness, Denies radiating pain into limb and Denies tingling Neuro Denies abnormal gait, Denies dizziness, Denies frequent falls, Denies numbness, Denies tingling and Denies weakness Endo Denies fatigue and Denies palpitations Physical Exam Vital Signs: Last Vital Signs Pulse 100 03/29/23 11:16 BP 135/63 03/29/23 11:16 BMI result Body Mass Index 35.9 Const General: cooperative, comfortable, no acute distress, alert, awake, Physically active and well groomed Nutritional Appearance: obese Orientation/consciousness: patient oriented x3 Neck Neck: Yes trachea midline, Yes supple and Yes no JVD Resp Effort & Inspection: normal respiratory effort Auscultation: clear to auscultation bilaterally Cardio Jugular venous distension: no JVD Palpation: normal PMI Rate: tachycardic Rhythm: regular rhythm Heart sounds: S1 normal heart sound present, S2 normal heart sound present, no click, no gallops and no murmurs GI Auscultation: normal bowel sounds Skin General skin exam: no rashes or lesions noted Neuro General: patient oriented x3 and no focal motor deficits Extrem General: Yes no clubbing, cyanosis or edema Office Procedures EKG Details: EKG shows normal sinus rhythm with low-voltage QRS otherwise normal EKG at 98 beats per minute 33669-[id number], Complete Assessment & Plan Assessment & Plan (1) Paroxysmal atrial fibrillation: Code(s): I48.0 - Paroxysmal atrial fibrillation Plan: Paroxysmal atrial fibrillation, has remained control and with no recurrent episodes. Will continue pursue rhythm control approach as she is highly symptomatic. However she is not tolerating metoprolol therapy, see below. Advised to call me with recurrent atrial fibrillation episode which may require alternative agent. May consider antiarrhythmic drug therapy at that point time. Continue full oral anticoagulation, currently on Xarelto 20 mg daily. Semi annual renal function test to be pursued. Avoidance of stimulants was discussed. Continue to participate in aggressive weight loss program. Aggressive control blood pressure is recommended. (2) Lightheadedness: Code(s): R42 - Dizziness and giddiness Plan: Episode of lightheadedness in wall weather. This most suggestive orthostatic intolerance possibly related autonomic neuropathy related diabetes. Although her symptoms are precipitated by metoprolol therapy. Currently she is off it and feeling better. Will discontinue metoprolol therapy for now. Advised to maintain adequate hydration. Advised to monitor blood pressure at home maintain a log. If she continues to have symptoms may consider tilt-table testing. Will follow up in the clinic in 6 months time, sooner p.r.n.. Thank you for allowing me to partake in the care Coding Level of Care Code Est Pt Level 4 (19499) Diagnoses Paroxysmal atrial fibrillation I48.0 Lightheadedness R42 CPT Codes EKG - CPT: 26123-Eiliarcimtonemlbc, Complete ([id number])
[2023-03-29 11:08] VITALS: BP 143/67; PULSE 96
[2023-03-29 11:13] VITALS: BP 138/68; PULSE 100
[2023-03-29 11:16] VITALS: BP 135/63; PULSE 100
== END 2023-03-29 11:26 | disposition home or self-care (01) ==
PROVIDERS: PCP Family Medicine; Visit Provider Internal Medicine Cardiovascular Disease
DX: I48.0 Paroxysmal atrial fibrillation (principal); R42 Dizziness and giddiness
CPT/HCPCS: 93010; 99214

== ENCOUNTER → 2023-03-29 10:52 | Outpatient (BNVA) | payer OTHER, SELFPAY | PROVIDERS: PCP Family Medicine; Visit Provider Internal Medicine Cardiovascular Disease | DX: R42 Dizziness and giddiness (principal); T44.7X5A Adverse effect of beta-adrenoreceptor antagonists, initial encounter; I48.0 Paroxysmal atrial fibrillation; E11.65 Type 2 diabetes mellitus with hyperglycemia; E78.00 Pure hypercholesterolemia, unspecified; Z79.4 Long term (current) use of insulin | CPT/HCPCS: 93005; 99212 ==

== ENCOUNTER 2023-04-01 09:21 | Outpatient (AMB) | payer OTHER, SELFPAY ==
--- NOTE | 2023-04-01 09:24 | A.OFFVIS_ITS ---
Intake Vital Signs 04/01/23 09:33 Height 5 ft 2 in Weight 197 lb 4 oz BMI 36.1 BP 138/63 Blood Pressure Location Lt brachial Position Sitting Pulse 100 Intake Visit Reasons: Left breast stereo biopsy for calcifications Intake Note: Patient is seen in office for stereo biopsy consult for left breast calcifications. Patient c/o: denies any concerns regarding the breast no prior surgeries or complications of the breast Landscape Management Technician Required: No Accompanied by: Self / Same As Patient Allergies Sulfa (Sulfonamide Antibiotics) Allergy (Intermediate, Verified 04/01/23 09:30) rash on face. Medication List - Last Reconciled 04/01/23 by Gelacio Sanchez MD apremilast (Otezla) 30 mg PO BID blood-glucose meter,continuous (Dexcom G6 Anchor Tack Puller) As directed blood-glucose sensor (Dexcom G6 Sensor device) As directed blood-glucose transmitter (Dexcom G6 Transmitter device) As directed clobetasol 0.05% 1 appl topical BID clobetasol 0.05% grams topical dapagliflozin propanediol (Farxiga) 5 mg PO DAILY ferrous sulfate 325 mg PO DAILY 30 days insulin glargine (Lantus Solostar U-100 Insulin) 40 units (0.4 mL) subcut QPM 30 days insulin syringe-needle U-100 (Monoject Insulin Safety Syringe) TEST 3-4 TIMES DAILY levalbuterol tartrate 45 mcg/actuation 2 puffs inhalation Q4-6H PRN 30 days lisinopril 20 mg PO DAILY 90 days metformin 1,000 mg PO BID needle (disp) 30 gauge (Monoject Hypodermic [place]) As directed omeprazole 20 mg PO DAILY 90 days pen needle, diabetic (BD Ultra-Fine Micro Pen Needle) Tst 4 times a day, As directed. 90 days pen needle, diabetic (Novofine 32) 4 times a day As directed, 90 days pen needle, diabetic (BD Belen 2nd Gen Pen Needle) As directed once a day ProAir HFA 90 mcg/actuation (albuterol sulfate) 2 puffs PO Q6H PRN 30 days NS rivaroxaban (Xarelto) 20 mg PO QPM 90 days simvastatin 20 mg PO BEDTIME 90 days tirzepatide (Mounjaro) 2.5 mg (0.5 mL) subcut QWEEK 4 weeks HPI HPI Comments History of Present Illness Details 42-year-old female patient found on routine screening mammogram to have areas of calcification in the left breast located in the central anterior and anterior lateral breast. This was confirmed on diagnostic imaging and felt to be suspicious for malignancy. Stereotactic guided core biopsy was recommended. The patient denies a prior history of breast problems or breast surgery. Her family history is negative for breast cancer. She has no breast symptoms includ ing breast pain, skin change, nipple discharge, palpable mass, or enlarged lymph nodes. She is and reports that her menstrual cycle is now irregular. She denies hormone replacement therapy. [facility] Medical History Diabetes High cholesterol Uncontrolled type 2 diabetes mellitus with hyperglycemia, with long-term current use of insulin Surgical History No history of previous surgery Family History Mother Diabetes Family history of thyroid problem Father No known health problems Maternal Grandmother Diabetes Paternal Grandmother Diabetes Social History Household Members: Significant Other Household Members Other:: boyfriend Housing: Apartment Patient Tobacco Use Status: Never used Tobacco e-Cigarette/Vaping Use: Never Used Second Hand Smoke Exposure: No service: No Current occupational status: employed Current occupation: [employer] Current occupational exposures/hazards: No Cognitive needs: No Hearing needs: No Vision needs: No Female Reproductive History Menstrual Age of Menarche: 12 Date of last menstrual period: 12/21/22 Total pregnancies: 0 Review of Systems Const All systems reviewed & are unremarkable except as noted in HPI and below Denies chills, Denies fever(s), Denies headache(s), Denies poor appetite and Denies weakness ENT Denies headache(s) Card Denies chest pain, Denies irregular heart rhythm, Denies palpitations and Denies dyspnea Resp Denies cough, Denies excessive phlegm production and Denies dyspnea GI Denies abdominal pain, Denies bloating, Denies change in bowel habits, Denies constipation, Denies heartburn, Denies diarrhea, Denies nausea and Denies vomiting Denies urinary frequency and Denies nipple discharge Musc Denies back pain, Denies muscle weakness and Denies numbness Skin/Breast Denies breast skin changes, Denies breast pain, Denies breast mass, Denies change in breast shape, Denies changing lesions, Denies nipple discharge and Denies unusual bruising Neuro Denies headache(s), Denies numbness, Denies paresthesias and Denies weakness Psych Denies anxiety and Denies depression Endo Denies palpitations Danilo/Lymph Denies lymphadenopathy Physical Exam Vital Signs: Last Vital Signs Pulse 100 04/01/23 09:33 BP 138/63 04/01/23 09:33 BMI result Body Mass Index 36.1 Const General: cooperative and no acute distress Nutritional Appearance: well nourished Orientation/consciousness: patient oriented x3 Limitations: no limitations HEENT Head: Yes normocephalic and Yes atraumatic Ears: hearing grossly normal bilaterally Chest Other: Left breast: No skin change, no nipple retraction, no nipple discharge, no palpable mass, no enlarged lymph nodes. Right breast: No skin change, no nipple retraction, no nipple discharge, no palpable mass, no enlarged lymph nodes Resp Effort & Inspection: normal respiratory effort, no audible wheezes, no cough and no respiratory distress Cardio Jugular venous distension: no JVD GI Inspection: Yes normal to inspection Skin Other: Warm, dry, no rash Neuro General: patient oriented x3 Extrem General: Yes no clubbing, cyanosis or edema Assessment & Plan Assessment & Plan (1) Abnormal mammogram of left breast: Code(s): R92.8 - Other abnormal and inconclusive findings on diagnostic imaging of breast Plan 42-year-old female patient presenting with a recent screening mammogram which revealed an area of calcification felt to be suspicious for malignancy. Stereotactic guided core biopsy is recommended. This [facility] not [facility] I reviewed the procedure, risks and benefits in detail with the patient and she agrees to proceed. I have asked her to return approximately 5-7 days following the procedure to review the pathology results and discuss treatment options as necessary. She expressed understanding and ag vicky with the plan. Orders: Orders MM stereotactic biopsy LT Today R92.8 - Other abnormal and inconclusive findings on diagnostic imaging of breast Coding Level of Care Code New Pt Level 4 (83402) Diagnoses Abnormal mammogram of left breast R92.8
[2023-04-01 09:33] VITALS: BP 138/63; PULSE 100; BMI 36.1
== END 2023-04-01 09:44 | disposition home or self-care (01) ==
PROVIDERS: PCP Family Medicine; Visit Provider Surgery
DX: R92.8 Other abnormal and inconclusive findings on diagnostic imaging of breast (principal)
CPT/HCPCS: 99203

== ENCOUNTER → 2023-04-01 09:21 | Outpatient (BNVA) | payer OTHER, SELFPAY | PROVIDERS: PCP Family Medicine; Visit Provider Surgery ==

== ENCOUNTER 2023-04-15 10:50 | Outpatient (AMB) | payer OTHER, SELFPAY ==
--- NOTE | 2023-04-15 10:51 | MHC.OFFVIS ---
Intake Vital Signs 04/15/23 10:55 Height 5 ft 2 in Weight 194 lb 10.691 oz BMI 35.6 BP 138/82 Blood Pressure Location Lt brachial Position Sitting Pulse 94 Intake Visit Reasons: DM2 with Dexcom Intake Note: Patient present today to follow up on Type 2 Diabetes Mellitus. Patient receives DME supplies through: [facility] Eye exam: Last Podiatry Visit: Random Glucose: 111mg/dl HgA1C: 6.1 Pallet Stone Positioner Required: No Accompanied by: Self / Same As Patient Allergies Sulfa (Sulfonamide Antibiotics) Allergy (Intermediate, Verified 04/15/23 10:58) rash on face. Medication List - Last Reconciled 04/15/23 by Michele Jarvis MD apremilast (Otezla) 30 mg PO BID blood-glucose meter,continuous (Dexcom G6 Mallet Cutter) As directed blood-glucose sensor (Dexcom G6 Sensor device) As directed private branch exchange operator 10 days blood-glucose transmitter (Dexcom G6 Transmitter device) As directed clobetasol 0.05% 1 appl topical BID clobetasol 0.05% grams topical dapagliflozin propanediol (Farxiga) 5 mg PO DAILY ferrous sulfate 325 mg PO DAILY 30 days insulin glargine (Lantus Solostar U-100 Insulin) 40 units (0.4 mL) subcut QPM 30 days insulin syringe-needle U-100 (Monoject Insulin Safety Syringe) TEST 3-4 TIMES DAILY levalbuterol tartrate 45 mcg/actuation 2 puffs inhalation Q4-6H PRN 30 days lisinopril 20 mg PO DAILY 90 days metformin 1,000 mg PO BID needle (disp) 30 gauge (Monoject Hypodermic [place]) As directed omeprazole 20 mg PO DAILY 90 days pen needle, diabetic (BD Ultra-Fine Micro Pen Needle) Tst 4 times a day, As directed. 90 days pen needle, diabetic (Novofine 32) 4 times a day As directed, 90 days pen needle, diabetic (BD Belen 2nd Gen Pen Needle) As directed once a day ProAir HFA 90 mcg/actuation (albuterol sulfate) 2 puffs PO Q6H PRN 30 days NS rivaroxaban (Xarelto) 20 mg PO QPM 90 days simvastatin 20 mg PO BEDTIME 90 days tirzepatide (Mounjaro) 2.5 mg (0.5 mL) subcut QWEEK 4 weeks HPI HPI Comments History of Present Illness Details 42 YO F who is seen in consultation for T2DM at the request of PCP. Initially diagnosed with T2DM in 12 yrs . Was initially started on treatment with metformin . Current regimen metformin 1000 mg BID. Lantus 45 units in PM Humalog 10 units Ac TID - not taking all the time Mounjaro 2.5 mg Qwkly Farxiga 5 mg QD Dexcom download shows she is wearing the sensor 86% of the time . Average glucose is 124 with standard deviation of 35. 92% blood sugars are in range with 7% hyperglycemia and <1% very hyperglycemic and less than 0% low Reports no low sugars Family history of T2DM in Mother, Grandmothers have Type 2 DM. Has eyes checked yearly, last eye exam 11/2022 ,Has s retinopathy. Has neuropathy, Does not see podiatry. Denies nephropathy, on JANUSZ/ARB. Has HLD, on statin. . Denies CAD.but has PVD Had diabetes education. [facility] Medical History Diabetes High cholesterol Uncontrolled type 2 diabetes mellitus with hyperglycemia, with long-term current use of insulin Surgical History No history of previous surgery Family History Mother Diabetes Family history of thyroid problem Father No known health problems Maternal Grandmother Diabetes Paternal Grandmother Diabetes Social History Household Members: Significant Other Household Members Other:: boyfriend Housing: Apartment Patient Tobacco Use Status: Never used Tobacco e-Cigarette/Vaping Use: Never Used Second Hand Smoke Exposure: No service: No Current occupational status: employed Current occupation: [employer] Current occupational exposures/hazards: No Cognitive needs: No Hearing needs: No Vision needs: No Female Reproductive History Menstrual Age of Menarche: 12 Physical Exam Vital Signs: Last Vital Signs Pulse 94 04/15/23 10:55 BP 138/82 04/15/23 10:55 BMI result Body Mass Index 35.6 Absence of Cushingoid features. Absence of acromegalic features. Neck exam reveals nl size thyroid about 15 gms. No thyroid nodules palpable. No carotid bruits present. Lungs CTA. Heart S1 S2, Reg R/R. No M/R/ G. Skin exam reveals absence of vitiligo or acanthosis nigricans. Abdominal exam reveals Soft NT/ND with NA BS. No organomegaly present. Neck Other: . Extrem Other: Visual exam of foot performed. No ulcerations or open lesions. No onchomycosis, no callouses.Pulses 2 + distally Sensation intact to monofilament exam. Vibratory sensation sensed is decreased with 128 Hz tuning fork Results AMB Hemoglobin A1c AMB Hemoglobin A1c 6.1 % Last Edit by Sparkle Vaughn on 04/15/23 11:15 Results Reviewed Results Reviewed: 04/15/23 11:01 Glucose, Whole Blood Routine Assessment & Plan Assessment & Plan (1) Uncontrolled type 2 diabetes mellitus with hyperglycemia, with long-term current use of insulin: Code(s): E11.65 - Type 2 diabetes mellitus with hyperglycemia; Z79.4 - intermediate card tender (current) use of insulin Plan: This is a 42-year-old white female with a history of type 2 diabetes being treated with metformin, Trulicity , Farxiga and basal insulin with excellent improved glycemic control and known microvascular macrovascular complications namely neuropathy and PVD as well as microalbuminia Plan is to increase the Mounjaro to 5 mg Q weekly and titrate the Lantus to 20 units and then 10 units if point cares are maintained. Goal is to discontinue Lantus Orders: Orders AMB Hemoglobin A1c Today E11.9 - Type 2 diabetes mellitus without complications Coding Level of Care Code Est Pt Level 4 (34839) Diagnoses Uncontrolled type 2 diabetes mellitus with hyperglycemia, with long-term current use of insulin E11.65; Z79.4
[2023-04-15 10:55] VITALS: BP 138/82; PULSE 94; BMI 35.6
[2023-04-15 11:06] LABS: Glucose, Whole Blood 111 mg/dL (60-115)
== END 2023-04-15 11:29 | disposition home or self-care (01) ==
PROVIDERS: PCP Family Medicine; Referring Provider Family Medicine; Visit Provider Internal Medicine Endocrinology, Diabetes & Metabolism
DX: E11.65 Type 2 diabetes mellitus with hyperglycemia (principal); Z79.4 Long term (current) use of insulin; E11.9 Type 2 diabetes mellitus without complications
CPT/HCPCS: 99214

== ENCOUNTER → 2023-04-15 10:50 | Outpatient (BNVA) | payer OTHER, SELFPAY | PROVIDERS: Visit Provider Internal Medicine Endocrinology, Diabetes & Metabolism | DX: E11.65 Type 2 diabetes mellitus with hyperglycemia (principal); Z79.4 Long term (current) use of insulin | CPT/HCPCS: 82947; 83036; 99212 ==

== ENCOUNTER 2023-05-03 12:39 | Outpatient (REF) | payer OTHER, SELFPAY ==
[2023-05-03 14:56] LABS: Iron 31 mcg/dL (30-160); Percent Iron Saturation 9 % (15-50); Total Iron Binding Capacity 327 mcg/dL (228-428); Unsaturated Iron Binding 296 ug/dL
== END 2023-05-03 12:40 | disposition home or self-care (01) ==
LOC: HO.WFDLDS 12:39
PROVIDERS: Visit Provider Family Medicine
DX: Z13.89 Encounter for screening for other disorder (principal)
CPT/HCPCS: 36415; 83540

== ENCOUNTER 2023-05-09 07:55 | Outpatient (REF) | payer OTHER, SELFPAY ==
--- NOTE | ~2023-05-09 | MM_ITS ---
"EXAMINATION: STEREOTACTIC TOMOSYNTHESIS-GUIDED VACUUM-ASSISTED BREAST BIOPSY, LEFT SPECIMEN RADIOGRAPH, LEFT POST PROCEDURE DIGITAL MAMMOGRAM, LEFT CLINICAL INFORMATION: 42 year female with suspicious calcifications inferolateral left breast, anterior one third. COMPARISON: 02/12/2023 TECHNIQUE/PROCEDURE: Informed consent was obtained from the patient after discussion of the benefits, risks, and alternatives to biopsy today. Patient appeared to understand. Gave opportunity for questions. Patient signed consent form. BIOPSY TABLE: [id number] | [employer] Affirm Prone Biopsy System. LESION: Calcifications sampled approximately 3:00 position. LOCAL ANESTHESIA: 5 mL 1% lidocaine; 6 mL 1% lidocaine with epinephrine. DERMATOTOMY: Single skin salvador dermatotomy performed. NEEDLE: [employer] Eviva 9-gauge vacuum assisted core biopsy device. APPROACH: Lateral to medial. TARGETING: Combination of digital breast tomosynthesis and stereotactic digital mammography used for targeting. CORES: 12 total CLIP: Top hat-shaped. SPECIMEN RADIOGRAPH: Specimen radiograph is taken in separate room using digital mammography. The index calcifications are in the excised cores, most notably in the second group of core samples. POST PROCEDURE UNILATERAL DIGITAL MAMMOGRAM: The post biopsy mammogram is performed in separate room using separate digital mammography equipment from the biopsy procedure. CC and ML views are obtained. There are scattered areas of fibroglandular density (breast composition category: b). The clip marker is in appropriate and accurate position. The calcifications are markedly decreased at the biopsy site. No gross hematoma. The patient tolerated the procedure well. No immediate complications. Home instructions reviewed with the patient. Final pathology results are pending. MM/MM stereotactic biopsy LT IMPRESSION: 1. Digital tomosynthesis-guided core biopsy left breast calcifications with clip placement. 2. Specimen radiograph taken and post procedure mammogram. There is accurate positioning of the biopsy clip. 3. Final pathology results pending. An addendum report will be issued."
[2023-05-09] MEDS: Sodium Bicarbonate 8.4% 50 MEQ/50 ML VIAL SUBCUT (12:13)
== END 2023-05-09 07:56 | disposition home or self-care (01) ==
LOC: HO.MAMMO 07:55
PROVIDERS: Visit Provider Surgery
DX: R92.8 Other abnormal and inconclusive findings on diagnostic imaging of breast (principal)
CPT/HCPCS: 19081; 88305; A4648

== ENCOUNTER → 2023-05-09 08:00 | Outpatient (BNV) | payer OTHER, SELFPAY | PROVIDERS: Visit Provider Radiology Diagnostic Radiology | DX: N63.25 Unspecified lump in the left breast, overlapping quadrants (principal); R92.8 Other abnormal and inconclusive findings on diagnostic imaging of breast | CPT/HCPCS: 19081 ==

== ENCOUNTER 2023-06-20 09:23 | Outpatient (AMB) | payer OTHER, SELFPAY ==
--- NOTE | 2023-06-20 09:34 | MHC.PC.OV ---
Vital Signs 06/20/23 09:35 Height 5 ft 2 in Weight 189 lb 2 oz BMI 34.6 BP 118/60 Blood Pressure Location Rt brachial Position Sitting Respiration 12 Pulse 97 Pulse Source Pulse Oximeter Temp 98.7 F Temp Source Oral Pulse Oximetry (%) 98 Oxygen Delivery Method Room Air Intake Visit Reasons: f/u anemia Intake Note: Patient is here to follow up with her anemia bloodwork. Patient reports no concerns at this time. Webbing Inspector Required: No Accompanied by: Self / Same As Patient Allergies Sulfa (Sulfonamide Antibiotics) Allergy (Intermediate, Verified 04/15/23 10:58) rash on face. Tobacco use date assessed: 02/18/23 HPI f/u anemia HPI Details Patient?presents?to?follow-up?on?anemia?and?low?iron Iron?has?only?slightly?increased?but?patient?notes?that?she?has?only?been?taking?it?about?every?other?week. In?the?past?week?she?has?been?trying?to?take?it?each?day?and?noticed?that?she?was?having?constipation Otherwise?feels?well. [facility] Medical History Diabetes High cholesterol Uncontrolled type 2 diabetes mellitus with hyperglycemia, with long-term current use of insulin Surgical History No history of previous surgery Family History Mother Diabetes Family history of thyroid problem Father No known health problems Maternal Grandmother Diabetes Paternal Grandmother Diabetes Social History Household Members: Significant Other Household Members Other:: boyfriend Housing: Apartment Patient Tobacco Use Status: Never used Tobacco e-Cigarette/Vaping Use: Never Used Second Hand Smoke Exposure: No service: No Current occupational status: employed Current occupation: [employer] Current occupational exposures/hazards: No Cognitive needs: No Hearing needs: No Vision needs: No Female Reproductive History Menstrual Age of Menarche: 12 Questionnaire Thrive Questionnaire Date Thrive assessed: 05/21/21 JAZMIN-7 AMB Questionnaire JAZMIN-7 Date JAZMIN - 7 assessed: 10/22/22 Source: Developed by Drs. Michele Mariee, Samantha Cano, Juan Luis Goetz and colleagues, with an educational jalyn from [employer]. Review of Systems Const Denies chills, Denies fatigue, Denies fever(s), Denies headache(s) and Denies weakness ENT Denies dizziness and Denies headache(s) Card Denies chest pain, Denies lightheadedness, Denies dyspnea and Denies other (Palpitations) Resp Denies cough, Denies dyspnea, Denies wheezing and Denies other ( shortness of breath) Musc Denies numbness and Denies tingling Neuro Denies dizziness, Denies headache(s), Denies numbness, Denies tingling, Denies paresthesias and Denies weakness Psych Denies anxiety and Denies depression Endo Denies fatigue Aller/Immun Denies wheezing Physical exam (Primary Care) Vital Signs: Last Vital Signs Temp 98.7 F 06/20/23 09:35 Pulse 97 06/20/23 09:35 Resp 12 06/20/23 09:35 BP 118/60 06/20/23 09:35 Pulse Ox 98 06/20/23 09:35 Oxygen Delivery Method Room Air 06/20/23 09:35 BMI result Body Mass Index 34.6 Tobacco/Smoking Status: Tobacco use Status Tobacco use date assessed 02/18/23 06/20/23 09:39 Patient Tobacco Use Status Never used Tobacco 06/20/23 09:39 e-Cigarette/Vaping Use Never Used 06/20/23 09:39 Thrive Assessment: Date of Thrive Assessment Date Thrive assessed 05/21/21 06/20/23 09:39 Const General: no acute distress and well developed Nutritional Appearance: well nourished Orientation/consciousness: patient oriented x3 [facility] Head: Yes normocephalic and Yes atraumatic Eyes General: appearance normal, both eyes and all related structures Pupils: Equal, round and reactive pupils present EOM: EOMs intact bilaterally Resp Effort & Inspection: normal respiratory effort Auscultation: clear to auscultation bilaterally Cardio Other: Regular?rhythm?today Rate: regular rate Rhythm: regular rhythm Heart sounds: S1 normal heart sound present, S2 normal heart sound present, no gallops, no murmurs and no rubs Neuro General: patient oriented x3 and gait normal Cranial nerves: Yes Equal, round and reactive pupils present Psych Affect: normal affect Assessment and Plan Assessment & Plan (1) Iron deficiency anemia: Code(s): D50.9 - Iron deficiency anemia, unspecified Plan: Iron?level?has?increased?slightly. Patient?notes?she?has?not?been?taking?iron?very?often.??When?she?tried?taking?each?day?this?week,?she?notes?constipation. She?will?try?taking?medication?every?other?day?and?hydrating?well. Will?recheck?iron?level?and?CBC?in?about?a?month?by?telemedicine (2) Paroxysmal atrial fibrillation: Code(s): I48.0 - Paroxysmal atrial fibrillation Plan: Regular?rate?and?rhythm?today. Stable (3) Hypertension: Code(s): I10 - Essential (primary) hypertension Plan: Blood?pressure?is?well?controlled.??Goal?is?less?than?140/90 Continue?current?medication?regimen Coding Level of Care Code Est Pt Level 4 (94343) Diagnoses Iron deficiency anemia D50.9 Paroxysmal atrial fibrillation I48.0 Hypertension I10
[2023-06-20 09:35] VITALS: BP 118/60; PULSE 97; RESP 12; TEMP 37.1; O2SAT 98; BMI 34.6
== END 2023-06-20 10:48 | disposition home or self-care (01) ==
PROVIDERS: Visit Provider Family Medicine
DX: D50.9 Iron deficiency anemia, unspecified (principal); I48.0 Paroxysmal atrial fibrillation; I10 Essential (primary) hypertension
CPT/HCPCS: 99214

== ENCOUNTER 2023-07-14 09:33 | Outpatient (REF) | payer OTHER, SELFPAY ==
[2023-07-14 11:14] LABS: MANUAL DIFF FLAG NO
[2023-07-14 11:38] LABS: Basophils Absolute Auto 0.1 X10*3/uL (0.0-0.2); Basophils Percent Auto 0.4 % (0-2); Eosinophils Absolute Auto 0.4 X10*3/uL (0.0-0.4); Eosinophils Percent Auto 2.5 % (0-4); Hematocrit 35.3 % (37.0-47.0); Hemoglobin 11.1 g/dl (12.0-16.0); Imm Gran Abs Auto 0.07 X10*3/uL (0.00-0.03); Imm Gran Pct Auto 0.5 % (0.0-0.4); Lymphocytes Absolute Auto 3.2 X10*3/uL (1.2-4.9); Lymphocytes Percent Auto 22.3 % (20-40); Mean Corpuscular HGB Conc 31.4 g/dl (31.0-35.0); Mean Corpuscular Hemoglobin 26.2 pg (27.0-33.0); Mean Corpuscular Volume 83.3 fL (80.0-98.0); Mean Platelet Volume 9.8 fL (9.4-12.3); Monocytes Absolute Auto 0.9 X10*3/uL (0.1-1.2); Monocytes Percent Auto 6.1 % (2-11); Neutrophils Absolute Auto 9.7 x10*3/uL (2.0-8.3); Neutrophils Percent Auto 68.2 % (45-73); Platelet Count 587 X10*3/uL (160-400); Red Blood Count 4.24 X10*6/uL (4.20-5.50); Red Cell Distribution Width 15.6 % (11.0-16.0); White Blood Count 14.2 X10*3/uL (4.8-10.8)
[2023-07-14 12:34] LABS: Alanine Aminotransferase 16 U/L (0-31); Albumin Level 3.9 g/dL (3.5-5.0); Alkaline Phosphatase 95 U/L (39-117); Anion Gap 14 (12-20); Aspartate Amino Transferase 16 U/L (5-31); Bilirubin Total 0.2 mg/dL (0.0-1.0); Blood Urea Nitrogen 17 mg/dL (9-16); Calcium 9.7 mg/dL (8.4-10.2); Carbon Dioxide 23 mmol/L (22-29); Chloride 104 mmol/L (96-108); Estimated Glomerular Filt Rate > 60; Glucose Random 283 mg/dL (60-115); Potassium 4.6 mmol/L (3.3-5.1); Sodium 136 mmol/L (135-145); Total Protein 7.5 g/dL (6.5-8.0)
== END 2023-07-14 09:34 | disposition home or self-care (01) ==
LOC: HO.WFDLDS 09:33
PROVIDERS: Visit Provider Family Medicine
DX: Z00.00 Encounter for general adult medical examination without abnormal findings (principal); D50.9 Iron deficiency anemia, unspecified
CPT/HCPCS: 36415; 80053; 85025

== ENCOUNTER 2023-07-18 16:16 | Outpatient (AMB) | payer OTHER, SELFPAY ==
--- NOTE | 2023-07-18 16:09 | A.OFFPC_ITS ---
Intake Visit Reasons: f/u labs+ NEEDS PHQ9 Fredi MCKENNA INTERPRETATION Intake Note: Patient is calling to follow up on labs today. Allergies Sulfa (Sulfonamide Antibiotics) Allergy (Intermediate, Verified 07/18/23 16:10) rash on face. Tobacco use date assessed: 07/18/23 HPI f/u labs+ NEEDS ADRIÁN9 Fredi MCKENNA INTERPRETATION HPI Details Patient?returns?to?follow-up iron-deficiency?anemia Had?labs?drawn?and?iron?levels?are?improving.??She?says?she?is?been?taking?her?i ankur?every?other?day?as?discussed. Tolerating?iron?every?other?day No?other?complaints?today [facility] Medical History Uncontrolled type 2 diabetes mellitus with hyperglycemia, with long-term current use of insulin High cholesterol Diabetes Surgical History No history of previous surgery Family History Mother Diabetes Family history of thyroid problem Father No known health problems Maternal Grandmother Diabetes Paternal Grandmother Diabetes Social History Household Members: Significant Other Household Members Other:: boyfriend Housing: Apartment Patient Tobacco Use Status: Never used Tobacco e-Cigarette/Vaping Use: Never Used Second Hand Smoke Exposure: No service: No Current occupational status: employed Current occupation: [id number] Current occupational exposures/hazards: No Cognitive needs: No Hearing needs: No Vision needs: No Female Reproductive History Menstrual Age of Menarche: 12 Questionnaire PHQ-9 Over the last 2 weeks, how often have you been bothered by any of the following problems? 1. Little interest or pleasure in doing things: not at all 2. Feeling down, depressed, or hopeless: not at all 3. Trouble falling or staying asleep, or sleeping too much: several days 4. Feeling tired or having little energy: nearly every day 5. Poor appetite or overeating: not at all 6. Feeling bad about yourself - or that you are a failure or have let yourself or your family down: not at all 7. Trouble concentrating on things, such as reading the newspaper or watching television: not at all 8. Moving or speaking so slowly that other people could have noticed. Or the opposite - being so fidgety or restless that you have been moving around a lot more than usual: not at all 9. Thoughts that you would be better off or of hurting yourself in some way: not at all Total score: 4 Depression Screening Interpretation: Negative Depression Screening Done: Yes 81019 - PHQ-9 Billing: Yes Source: Developed by Drs. Michele Mariee, Samantha Cano, Juan Luis Goetz and colleagues, with an educational jalyn from [employer]. Thrive Questionnaire Date Thrive assessed: 05/21/21 JAZMIN-7 AMB Questionnaire JAZMIN-7 Date JAZMIN - 7 assessed: 10/22/22 Source: Developed by Drs. Michele Mariee, Samantha Cano, Juan Luis Goetz and colleagues, with an educational jalyn from [employer]. Review of Systems Const Denies chills, Denies fatigue, Denies fever(s), Denies headache(s) and Denies weakness ENT Denies dizziness and Denies headache(s) Card Denies chest pain, Denies lightheadedness, Denies dyspnea and Denies other (Palpitations) Resp Denies cough, Denies dyspnea, Denies wheezing and Denies other ( shortness of breath) Musc Denies numbness and Denies tingling Neuro Denies dizziness, Denies headache(s), Denies numbness, Denies tingling, Denies paresthesias and Denies weakness Psych Denies anxiety and Denies depression Endo Denies fatigue Aller/Immun Denies wheezing Physical exam (Primary Care) Tobacco/Smoking Status: Tobacco use Status Tobacco use date assessed 07/18/23 07/18/23 16:15 Patient Tobacco Use Status Never used Tobacco 07/18/23 16:15 e-Cigarette/Vaping Use Never Used 07/18/23 16:15 PHQ-9: PHQ-9 Score PHQ-9: Total score 4 07/18/23 16:15 Depression Screening Interpretation: Negative Thrive Assessment: Date of Thrive Assessment Date Thrive assessed 05/21/21 07/18/23 16:15 Const Other: Telemedicine?encounter.??Audio?only.??No?exam. Telehealth Telehealth Location of provider rendering services: practice address Location of patient: address on file Patient Identification confirmed using: Name, : Yes Telehealth method: voice only Patient verbally consented to treatment: Yes Patient verbally consented to billing insurance company: Yes Patient informed of any privacy concerns related to visit: Yes Minutes spent on Phone/Video with Pt.: 8 Assessment and Plan Assessment & Plan (1) Iron deficiency anemia: Code(s): D50.9 - Iron deficiency anemia, unspecified Plan: Patient?has?been?taking?her?iron?more?consistently?and?her?iron?levels?are?impro ving. Still?has?anemia Will?continue?to?follow?and?repeat?prior?to?her?next?visit. If?still?not?improving?despite?good?consistency?with?iron,?will?refer?to?Hematol ogy-Oncology Coding Level of Care Code Tele Est Pt Level 2 (63035) Diagnoses Iron deficiency anemia D50.9
== END 2023-07-18 16:45 ==
LOC: HO.HMGFM 16:16
PROVIDERS: PCP Family Medicine; Visit Provider Family Medicine
DX: D50.9 Iron deficiency anemia, unspecified (principal)
CPT/HCPCS: 99212

== ENCOUNTER 2023-08-11 10:55 | Outpatient (AMB) | payer OTHER, SELFPAY ==
[2023-08-11 11:02] VITALS: BP 134/66; PULSE 109; BMI 34.2
--- NOTE | 2023-08-11 11:02 | MHC.OFFVIS ---
Intake Vital Signs 08/11/23 11:02 Height 5 ft 2 in Weight 186 lb 15.232 oz BMI 34.2 BP 134/66 Blood Pressure Location Lt brachial Position Sitting Pulse 109 H Pulse Source Pulse Oximeter Intake Visit Reasons: f/u Type 2 DM Intake Note: Patient presents today to follow up on DMT2. Last Diabetic Eye exam: 11/2021 Last Podiatry Visit:None Random Glucose: 186 mg/dl HgA1C:7.0% Kettle Skimmer Required: No Accompanied by: Self / Same As Patient Allergies Sulfa (Sulfonamide Antibiotics) Allergy (Intermediate, Verified 08/11/23 11:06) rash on face. HPI HPI Comments History of Present Illness Details 42 YO F who is seen in consultation for T2DM at the request of PCP. Initially diagnosed with T2DM in 12 yrs . Was initially started on treatment with metformin . Current regimen metformin 1000 mg BID. Lantus 25 units in PM Humalog 10 units Ac TID - not taking all the time Mounjaro 5 mg Qwkly jardiance 25 mg QD Dexcom download shows she is wearing the sensor 88% of the time . Average glucose is 133 with standard deviation of 20.4. 93% blood sugars are in range with 7% hyperglycemia and <1% very hyperglycemic and less than 0% low Reports no low sugars Family history of T2DM in Mother, Grandmothers have Type 2 DM. Has eyes checked yearly, last eye exam 11/2022 ,Has s retinopathy. Has neuropathy, Does not see podiatry. Denies nephropathy, on JANUSZ/ARB. Has HLD, on statin. . Denies CAD.but has PVD Had diabetes education. [facility] Medical History Uncontrolled type 2 diabetes mellitus with hyperglycemia, with long-term current use of insulin High cholesterol Diabetes Surgical History No history of previous surgery Family History Mother Diabetes Family history of thyroid problem Father No known health problems Maternal Grandmother Diabetes Paternal Grandmother Diabetes Social History Household Members: Significant Other Household Members Other:: boyfriend Housing: Apartment Patient Tobacco Use Status: Never used Tobacco e-Cigarette/Vaping Use: Never Used Second Hand Smoke Exposure: No service: No Current occupational status: employed Current occupation: [employer] Current occupational exposures/hazards: No Cognitive needs: No Hearing needs: No Vision needs: No Female Reproductive History Menstrual Age of Menarche: 12 Physical Exam Vital Signs: Last Vital Signs Pulse 109 H 08/11/23 11:02 BP 134/66 08/11/23 11:02 BMI result Body Mass Index 34.2 Absence of Cushingoid features. Absence of acromegalic features. Neck exam reveals nl size thyroid about 15 gms. No thyroid nodules palpable. No carotid bruits present. Lungs CTA. Heart S1 S2, Reg R/R. No M/R/ G. Skin exam reveals absence of vitiligo or acanthosis nigricans. Abdominal exam reveals Soft NT/ND with NA BS. No organomegaly present. Neck Other: . Extrem Other: Visual exam of foot performed. No ulcerations or open lesions. No onchomycosis, no callouses.Pulses 2 + distally Sensation intact to monofilament exam. Vibratory sensation sensed is decreased with 128 Hz tuning fork Results Reviewed Results Reviewed: Laboratory Last Values Glucose (Clinic) 186 mg/dL (60-115) H 08/11/23 11:09 Assessment & Plan Assessment & Plan (1) Uncontrolled type 2 diabetes mellitus with hyperglycemia, with long-term current use of insulin: Code(s): E11.65 - Type 2 diabetes mellitus with hyperglycemia; Z79.4 - technician terminal and repeater (current) use of insulin Plan: This is a 42-year-old white female with a history of type 2 diabetes being treated with metformin, Mounjaro , Farxiga and basal insulin with excellent improved glycemic control and known microvascular macrovascular complications namely neuropathy and PVD as well as microalbuminia Plan is to increase the Mounjaro to 7.5 mg Q weekly. Patient was also told to discontinue Lantus. At This point, patient can follow up with primary care provider and return back to endocrinology if her HbA1c deteriorate Medications: New tirzepatide (Mounjaro) 7.5 mg (0.5 mL) subcut QWEEK 2 mL 5RF Coding Level of Care Code Est Pt Level 4 (01737) Diagnoses Uncontrolled type 2 diabetes mellitus with hyperglycemia, with long-term current use of insulin E11.65; Z79.4
[2023-08-11 11:13] LABS: Glucose, Whole Blood 186 mg/dL (60-115)
== END 2023-08-11 11:21 | disposition home or self-care (01) ==
PROVIDERS: PCP Family Medicine; Visit Provider Internal Medicine Endocrinology, Diabetes & Metabolism
DX: E11.65 Type 2 diabetes mellitus with hyperglycemia (principal); Z79.4 Long term (current) use of insulin
CPT/HCPCS: 99214

== ENCOUNTER → 2023-08-11 10:55 | Outpatient (BNVA) | payer OTHER, SELFPAY | PROVIDERS: PCP Family Medicine; Visit Provider Internal Medicine Endocrinology, Diabetes & Metabolism | DX: E11.65 Type 2 diabetes mellitus with hyperglycemia (principal); Z79.4 Long term (current) use of insulin | CPT/HCPCS: 82947; 83036; 99212 ==

== ENCOUNTER → 2023-09-26 10:53 | Outpatient (BNV) | payer OTHER, SELFPAY | PROVIDERS: Visit Provider Internal Medicine Medical Oncology | DX: D64.9 Anemia, unspecified (principal) | CPT/HCPCS: 99204; 99213 ==

== ENCOUNTER 2023-11-18 10:32 | Outpatient (AMB) | payer OTHER, SELFPAY ==
[2023-11-18 10:35] VITALS: BP 144/72; PULSE 105; BMI 32.5
--- NOTE | 2023-11-18 10:35 | MHC.OFFVIS ---
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 Medication List - Last Reconciled 11/18/23 by Juan Villeda MD apremilast (Otezla) 30 mg PO BID blood-glucose meter,continuous (Dexcom G6 Molder Sweep) As directed blood-glucose sensor (FreeStyle Georgette 3 Sensor device) As directed change every 14 days clobetasol 0.05% 1 appl topical BID empagliflozin (Jardiance) 10 mg PO DAILY ferrous sulfate 325 mg PO DAILY 30 days insulin glargine (Lantus Solostar U-100 Insulin) 40 units (0.4 mL) subcut QPM 30 days insulin syringe-needle U-100 (Monoject Insulin Safety Syringe) TEST 3-4 TIMES DAILY levalbuterol tartrate 45 mcg/actuation 2 puffs inhalation Q4-6H PRN 30 days lisinopril 20 mg PO DAILY 90 days metformin 1,000 mg PO BID needle (disp) 30 gauge (Monoject Hypodermic [place]) As directed omeprazole 20 mg PO DAILY 90 days pen needle, diabetic (BD Ultra-Fine Micro Pen Needle) Tst 4 times a day, As directed. 90 days pen needle, diabetic (Novofine 32) 4 times a day As directed, 90 days pen needle, diabetic (BD Belen 2nd Gen Pen Needle) As directed once a day ProAir HFA 90 mcg/actuation (albuterol sulfate) 2 puffs PO Q6H PRN 30 days NS rivaroxaban (Xarelto) 20 mg PO QPM 90 days simvastatin 20 mg PO BEDTIME 90 days tirzepatide (Mounjaro) 7.5 mg (0.5 mL) subcut QWEEK HPI HPI Comments History of Present Illness Details Gloria comes for follow-up. She has been started on Mounjaro she has been doing well. She is lost about 50 lb. Her hemoglobin A1c is much better controlled. A blood pressure is much better control. She feels well. She has no exertional chest pain or shortness of breath. No recurrent episodes of atrial fibrillation. Denies any prolonged palpitations or irregular heartbeat. Takes all her medications. No bleeding issues or neurologic events. She does not exercise on a regular basis but maintains her usual day-to-day activity. [facility] Medical History Uncontrolled type 2 diabetes mellitus with hyperglycemia, with long-term current use of insulin High cholesterol Diabetes Surgical History No history of previous surgery Family History Mother Diabetes Family history of thyroid problem Father No known health problems Maternal Grandmother Diabetes Paternal Grandmother Diabetes Social History Household Members: Significant Other Household Members Other:: boyfriend Housing: Apartment Patient Tobacco Use Status: Never used Tobacco e-Cigarette/Vaping Use: Never Used Second Hand Smoke Exposure: No service: No Current occupational status: employed Current occupation: [employer] Current occupational exposures/hazards: No Cognitive needs: No Hearing needs: No Vision needs: No Female Reproductive History Menstrual Age of Menarche: 12 Review of Systems Const Reports no additional complaints ENT Reports dizziness Card Denies chest pain, Denies chest pain at rest, Denies chest pain with activity, Denies rapid heart rate, Denies pedal edema, Denies edema, Denies leg edema, Denies lightheadedness, Denies palpitations, Denies dyspnea, Denies dyspnea on exertion and Denies orthopnea Resp Denies cough, Denies dyspnea and Denies dyspnea on exertion GI Denies hematochezia and Denies change in stool character Musc Denies abnormal gait, Reports limited range of motion, Reports muscle cramps, Denies muscle weakness, Denies numbness, Denies radiating pain into limb, Denies stiffness and Denies tingling Neuro Denies abnormal gait, Reports dizziness, Denies numbness and Denies tingling Endo Denies palpitations Physical Exam Vital Signs: Last Vital Signs Pulse 105 H 11/18/23 10:35 BP 144/72 H 11/18/23 10:35 BMI result Body Mass Index 32.5 Const General: cooperative, comfortable, no acute distress, alert, awake, Physically active and well groomed Nutritional Appearance: obese Orientation/consciousness: patient oriented x3 Neck Neck: Yes trachea midline, Yes supple and Yes no JVD Resp Effort & Inspection: normal respiratory effort Auscultation: clear to auscultation bilaterally Cardio Jugular venous distension: no JVD Palpation: normal PMI Rate: tachycardic Rhythm: regular rhythm Heart sounds: S1 normal heart sound present, S2 normal heart sound present, no click, no gallops and no murmurs GI Auscultation: normal bowel sounds Skin General skin exam: no rashes or lesions noted Neuro General: patient oriented x3 and no focal motor deficits Extrem General: Yes no clubbing, cyanosis or edema Assessment & Plan Assessment & Plan (1) Paroxysmal atrial fibrillation: Code(s): I48.0 - Paroxysmal atrial fibrillation Plan: Highly symptomatic paroxysmal atrial fibrillation without any obvious clinical recurrence. She is done very well with lifestyle modification has lost 50 lb. This by itself has shown to reduce recurrence of atrial fibrillation. This was discussed with her. She is encouraged to continue to participate in regular physical activity and weight loss program. Avoidance of stimulants was discussed. Stress mitigation strategies was discussed. No indication for alternative therapy including antiarrhythmic drug therapy at this point time. Advised to call me with new symptoms. CHADSVASc score of 4. Continue full oral anticoagulation, currently on Xarelto 20 mg daily. Semi annual renal function test should be pursued. (2) Hypertension: Code(s): I10 - Essential (primary) hypertension Plan: Hypertension which is currently well optimized continue current therapy. Importance of good blood pressure control was discussed advised to monitor blood pressure at home maintain a log. Today the blood pressure is noted to be slightly elevated although at home a blood pressure mostly in 110 range. Continue aggressive diabetes management which is currently well optimized. Target goal LDL less than 70 mg/dL. Will follow up in the clinic in 1 year's time, sooner p.r.n.. Thank you for allowing me to partake in her care Coding Level of Care Code Est Pt Level 4 (09209) Diagnoses Paroxysmal atrial fibrillation I48.0 Hypertension I10
== END 2023-11-18 11:17 | disposition home or self-care (01) ==
PROVIDERS: PCP Family Medicine; Visit Provider Internal Medicine Cardiovascular Disease
DX: I48.0 Paroxysmal atrial fibrillation (principal); I10 Essential (primary) hypertension
CPT/HCPCS: 99214

== ENCOUNTER → 2023-11-18 10:32 | Outpatient (BNVA) | payer OTHER, SELFPAY | PROVIDERS: PCP Family Medicine; Visit Provider Internal Medicine Cardiovascular Disease | DX: I48.0 Paroxysmal atrial fibrillation (principal); I10 Essential (primary) hypertension | CPT/HCPCS: 99212 ==

== ENCOUNTER 2024-01-03 11:14 | Outpatient (AMB) | payer OTHER, SELFPAY ==
--- NOTE | 2024-01-03 11:21 | MHC.OFFVIS ---
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 Is last menstrual period known: Yes Last menstrual period: 12/28/23 HPI Comments Details: She is a premenopausal woman presenting for annual examination. Doing well with no concerns. She tries to eat healthy and stays active with some exercise. Menses skipped for 6 months, cycles have resumed and are regular now, uses withdrawal. Not interested in control. Currently is sexually active. She denies vaginal itching and irritation. STI screening offered; she declines. Denies family history of breast, ovarian or colon cancer. Last pap smear 2022, negative. Mammogram: UTD, biopsy negative 2022 for hx. calcifications. [facility] Medical History Uncontrolled type 2 diabetes mellitus with hyperglycemia, with long-term current use of insulin High cholesterol Diabetes Surgical History No history of previous surgery Family History Mother Diabetes Family history of thyroid problem Father No known health problems Maternal Grandmother Diabetes Paternal Grandmother Diabetes Social History Household Members: Significant Other Household Members Other:: boyfriend Housing: Apartment Patient Tobacco Use Status: Never used Tobacco e-Cigarette/Vaping Use: Never Used Second Hand Smoke Exposure: No service: No Current occupational status: employed Current occupation: [employer] Current occupational exposures/hazards: No Cognitive needs: No Hearing needs: No Vision needs: No Female Reproductive History Menstrual Age of Menarche: 12 Duration of menses: 3-5 days Date of last menstrual period: 12/28/23 Total pregnancies: 0 Date of last pap smear: 12/30/22 (neg pap and hpv) Date of Mammogram: 02/10/23 (Birad 0) Review of Systems Const All systems reviewed & are unremarkable except as noted in HPI and below Reports as per HPI Eyes Reports no additional complaints ENT Reports no additional complaints Card Reports no additional complaints Resp Reports no additional complaints GI Reports as per HPI and Reports no additional complaints Reports as per HPI Musc Reports no additional complaints Skin/Breast Reports as per HPI Neuro Reports no additional complaints Psych Reports no additional complaints Endo Reports no additional complaints Danilo/Lymph Reports no additional complaints Aller/Immun Reports no additional complaints Physical Exam Vital Signs: Last Vital Signs BP 132/84 01/03/24 11:22 BMI result Body Mass Index 33.3 Const General: cooperative, healthy appearing, no acute distress, well developed and alert Orientation/consciousness: patient oriented x3 HEENT Head: Yes normal to inspection Eyes General: appearance normal, both eyes and all related structures Neck Neck: Yes normal visual inspection Thyroid: Thyroid normal Chest Chest palpation & inspection: normal inspection of the chest and other (no puckering, dimpling, peau de orange, retraction, discharge, masses) Breast/axilla inspection: normal inspection of the breasts Breast/axilla palpation: normal palpation of the breasts Resp Effort & Inspection: normal respiratory effort GI Inspection: Yes normal to inspection Palpation (GI): Soft to palpation Rectal Exam - Female: deferred General: Yes bladder normal to palpation External Female Exam: normal external appearance and normal appearance of the urethra Speculum Exam - Vagina: normal appearance of the vagina, normal palpation and normal vaginal discharge Speculum Exam - Cervix: normal appearance of the cervix and normal palpation Bimanual exam- vagina & uterus: normal bimanual exam, normal palpation, uterine size normal, bladder normal to palpation, normal palpation and non-tender Bimanual Exam- Adnexa, other: no masses Skin General skin exam: no rashes or lesions noted Rashes: no rashes Neuro General: patient oriented x3 Cognition (Neuro): normal cognition Extrem General: Yes normal to inspection Psych Attitude: cooperative Thought process: Normal thought process present Assessment & Plan Assessment & Plan (1) Encounter for well woman exam with routine gynecological exam: Code(s): Z01.419 - Encounter for gynecological examination (general) (routine) without abnormal findings Plan Discussed: Current recommendations for pap smears per ASCCP guidelines. Breast awareness and periodic breast exams. Maintain a healthy lifestyle including a well balanced diet and routine exercise. Mammogram yearly. Increase safety protection for prevention of , if cycle is late to do a home test. Advised to call if periods are heavier prolonged or short intervals less than 21 days. Menopause occurs after 12 months of no menses. Currently is a premenopausal and still at risk for . Patient verbalizes understanding and agrees to the plan of care. She was given opportunity to ask questions and all questions were answered to the best of my ability. 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 This note is constructed using voice recognition software. While every effort has been made to ensure accuracy, adapted physical education specialist errors may have been included. Coding Level of Care Code Est Pt Prev Care 40-64y(30061) Diagnoses Encounter for well woman exam with routine gynecological exam Z01.419
[2024-01-03 11:22] VITALS: BP 132/84; BMI 33.3
== END 2024-01-03 11:57 | disposition home or self-care (01) ==
LOC: HO.HWS 11:14
PROVIDERS: PCP Family Medicine; Visit Provider Advanced Practice Midwife
DX: Z01.419 Encounter for gynecological examination (general) (routine) without abnormal findings (principal)
CPT/HCPCS: 99396

== ENCOUNTER → 2024-01-03 11:14 | Outpatient (BNVA) | payer OTHER, SELFPAY | PROVIDERS: PCP Family Medicine; Visit Provider Advanced Practice Midwife | DX: Z01.419 Encounter for gynecological examination (general) (routine) without abnormal findings (principal) | CPT/HCPCS: 99396 ==

== ENCOUNTER 2024-02-03 11:41 | Outpatient (AMB) | payer OTHER, SELFPAY ==
[2024-02-03 11:51] VITALS: BP 130/62; PULSE 108; O2SAT 98; BMI 32.4
--- NOTE | 2024-02-03 11:51 | MHC.PC.OV ---
Vital Signs 02/03/24 11:51 Height 5 ft 2 in Weight 177 lb 2 oz BMI 32.4 BP 130/62 Blood Pressure Location Lt brachial Position Sitting Pulse 108 H Pulse Source Pulse Oximeter Pulse Oximetry (%) 98 Oxygen Delivery Method Room Air Intake Visit Reasons: Follow-up diabetes, hypertension and anemia. Intake Note: Patient is here to follow up on diabetes, HTN, and anemnia. Allergies Sulfa (Sulfonamide Antibiotics) Allergy (Intermediate, Verified 02/03/24 11:52) rash on face. Tobacco use date assessed: 02/03/24 Dental Screening Dental Screen Date: 02/03/24 Did you have a dental visit in the last 12 months?: Yes Did you have a dental problem in the last 6 months where you did not have access to dental care?: No Was dental information given to patient?: Patient declined HPI Follow-up diabetes, hypertension and anemia. HPI Details 43 y/o female presents to f/u diabetes, hypertension, anemia. Last A1c 08/01/23 7.0%. A1c today 02/03/24 7.0%. Blood pressure today 130/62, 108p. She is on lisinopril 20mg daily. Continues to f/u with HemeOnc for anemia. Anemia resolved with her iron supplement. She notes she could improve her exercise. [facility] Medical History Uncontrolled type 2 diabetes mellitus with hyperglycemia, with long-term current use of insulin High cholesterol Diabetes Surgical History No history of previous surgery Family History (Updated 02/03/24 @ 11:55 by Lindsay Shepard CMA) Mother Diabetes Family history of thyroid problem Father No known health problems Maternal Grandmother Diabetes Paternal Grandmother Diabetes Maternal Grandfather Substance abuse in family Brother Substance abuse in family Mental health disorder Paternal Uncle Mental health disorder Social History Household Members: Significant Other Household Members Other:: boyfriend Housing: Apartment Patient Tobacco Use Status: Never used Tobacco e-Cigarette/Vaping Use: Never Used Second Hand Smoke Exposure: No service: No Current occupational status: employed Current occupation: [employer] Current occupational exposures/hazards: No Cognitive needs: No Hearing needs: No Vision needs: No Female Reproductive History Menstrual Age of Menarche: 12 Questionnaire Thrive Questionnaire Date Thrive assessed: 05/21/21 JAZMIN-7 AMB Questionnaire JAZMIN-7 Date JAZMIN - 7 assessed: 10/22/22 Source: Developed by Drs. Michele Mariee, Samantha Cano, Juan Luis Goetz and colleagues, with an educational jalyn from [employer]. Physical exam (Primary Care) Vital Signs: Last Vital Signs Pulse 108 H 02/03/24 11:51 BP 130/62 02/03/24 11:51 Pulse Ox 98 02/03/24 11:51 Oxygen Delivery Method Room Air 02/03/24 11:51 BMI result Body Mass Index 32.4 Tobacco/Smoking Status: Tobacco use Status Tobacco use date assessed 02/03/24 02/03/24 11:53 Patient Tobacco Use Status Never used Tobacco 02/03/24 11:53 e-Cigarette/Vaping Use Never Used 02/03/24 11:53 Thrive Assessment: Date of Thrive Assessment Date Thrive assessed 05/21/21 02/03/24 11:53 Assessment and Plan Assessment & Plan (1) Diabetes: Code(s): E11.9 - Type 2 diabetes mellitus without complications Qualifiers: 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 complication detail: with diabetic retinopathy 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 complication status: with ophthalmic complications 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: unspecified 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 macular edema: macular edema presence unspecified 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 type: due to underlying condition Diabetic retinopathy severity: with unspecified retinopathy severity Laterality: unspecified laterality Qualified Code(s): E08.319 - 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 due to underlying condition with unspecified diabetic retinopathy without macular edema Plan: A1c?7.0%.??Fairly?good?control.??Goal?is?less?than?7.0% Will?increase?her?Ozempic Continued?her?other?medications?as?prescribed-she?has?not?been?taking?Lantus?so?I?took?this?off?her?med?list Encouraged?diabetic?diet?and?exercise.??Encouraged?her?to?use?her?continuous?glucose?monitoring (2) Hypertension: Code(s): I10 - Essential (primary) hypertension Plan: Blood?pressure?is?controlled.??Goal?is?less?than?140/90 Mild?tachycardia?and?I?encouraged?increased?hydration (3) Iron deficiency anemia: Code(s): D50.9 - Iron deficiency anemia, unspecified Plan: This?has?resolved?with?continued?use?of?iron She?will?continue?iron Follow-up?with?Hematology-Oncology?as?recommended (4) Vertigo: Code(s): R42 - Dizziness and giddiness Plan: Patient?notes?some?vertigo?symptoms?with?head?movements She?has?Flonase?at?home?but?has?not?been?using?and?I?encouraged?her?to?do?so If?not?improving?will?refer?her?for?vestibular?rehab She?should?always?maintain?good?hydration?as?well Orders: Orders AMB Hemoglobin A1c Today Z13.9 - Encounter for screening, unspecified Medications: Changed From semaglutide 1 mg (0.375 mL) subcut QWEEK 28 days 1.5 mL 4RF To semaglutide 2 mg (0.75 mL) subcut QWEEK 3 mL 4RF 28 days From semaglutide (Ozempic) 1 mg (0.75 mL) subcut QWEEK 3 mL 4RF To semaglutide 1 mg (0.375 mL) subcut QWEEK 28 days 1.5 mL 4RF Discontinued insulin glargine (Lantus Solostar U-100 Insulin) Discontinued Reason: Doctor's Order 40 units (0.4 mL) subcut QPM 30 days 12 mL 3RF Coding Level of Care Code Est Pt Level 4 (16717) Diagnoses 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 due to underlying condition with retinopathy, macular edema presence unspecified, unspecified laterality, unspecified retinopathy severity, unspecified whether dedicated intermodal truck driver insulin use E08.319 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 complication detail: with diabetic retinopathy 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 complication status: with ophthalmic complications 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
== END 2024-02-03 12:40 | disposition home or self-care (01) ==
PROVIDERS: PCP Family Medicine; Visit Provider Family Medicine
DX: E11.9 Type 2 diabetes mellitus without complications (principal)
CPT/HCPCS: 83036; 99214

== ENCOUNTER 2024-02-16 10:40 | Outpatient (REF) | payer OTHER, SELFPAY ==
--- NOTE | ~2024-02-16 | MM_ITS ---
EXAMINATION: MM DIAGNOSTIC DIGITAL BREAST TOMOSYNTHESIS, BILATERAL CLINICAL INFORMATION: 6 month follow-up left breast status post benign left breast stereotactic biopsy (patient was due prior November). Patient also due for bilateral screening. COMPARISON: Stereotactic left breast biopsy 05/01/2023. Mammography: 03/02/2023, 02/10/2023 (baseline exam). TECHNIQUE: Digital breast tomosynthesis is performed in both the craniocaudal and mediolateral oblique views along with computer-aided detection (CAD). Synthesized 2D images are generated from the tomosynthesis. FINDINGS: There are scattered areas of fibroglandular density (ACR BI-RADS breast composition Category b). Post benign biopsy clip present slightly inferior lateral left breast, middle one third. No significant change in the remaining benign-appearing calcifications, many which layer on the ML view. Bilateral vascular calcifications are noted. Retroareolar densities bilaterally are again noted, likely representing duct ectasia, benign and unchanged. No developing mass or duct developing area of architectural distortion in either breast. Stable stromal and parenchymal pattern. Stable lymph node in the axillary tail of the right breast. No suspicious skin or axillary abnormalities. MM/MM tomosynthesis diagnostic BI IMPRESSION: -No findings suspicious for malignancy in either breast. There are stable benign findings. -Calcifications in the mid and anterior 3:00 left breast which were biopsied are stable with no aggressive changes, and many layer on the mediolateral view consistent with benign etiology. No further follow-up recommended. -Recommend the patient return to routine annual screening. ASSESSMENT: BI-RADS BI-RADS 2 - Benign Findings RECOMMENDATION: 1 year F/U Results were provided to the patient at time of visit by the technologist. This patient's information was entered into a reminder system with a target due date for their next mammogram.
== END 2024-02-16 10:41 | disposition home or self-care (01) ==
LOC: HO.MAMMO 10:40
PROVIDERS: PCP Family Medicine; Visit Provider Family Medicine
DX: R92.1 Mammographic calcification found on diagnostic imaging of breast (principal)
CPT/HCPCS: 77062; 77066

== ENCOUNTER → 2024-02-16 10:45 | Outpatient (BNV) | payer OTHER, SELFPAY | PROVIDERS: PCP Family Medicine; Visit Provider Radiology Diagnostic Radiology | DX: R92.1 Mammographic calcification found on diagnostic imaging of breast (principal) | CPT/HCPCS: 77062; 77066 ==

== ENCOUNTER 2024-02-23 10:20 | Outpatient (REF) | payer OTHER, SELFPAY ==
--- NOTE | ~2024-02-23 | US_ITS ---
EXAMINATION: NONINVASIVE ASSESSMENT OF THE ARTERIES OF BOTH LOWER EXTREMITIES INCLUDING BILATERAL LOWER EXTREMITY DUPLEX. CLINICAL INFORMATION: Peripheral vascular disease COMPARISON: Noninvasive arterial exam on 12/21/2021 TECHNIQUE: duplex Doppler techniques with wave form analysis and measurement of velocities in the common femoral, profunda femoral, superficial femoral, popliteal, tibial and peroneal arteries. The study was performed only at rest. FINDINGS: RIGHT LEG Common femoral artery: 130 cm/s, Multiphasic Profunda femoris artery: 112 cm/s, Multiphasic Superficial femoral artery (proximal): 167 cm/s, Multiphasic Superficial femoral artery (mid): 150 cm/s, Multiphasic Superficial femoral artery (distal): 80 cm/s, Multiphasic Proximal Popliteal artery: 53 cm/s, Multiphasic Mid posterior tibial artery: 35 cm/s, Multiphasic LEFT LEG: Common femoral artery: 207 cm/s, Multiphasic Profunda femoris artery: 107 cm/s, Multiphasic Superficial femoral artery (proximal): occluded Superficial femoral artery (mid): 120 cm/s, monophasic Superficial femoral artery (distal): 70 cm/s, monophasic Proximal Popliteal artery: 42 cm/s, monophasic Mid posterior tibial artery: 41 cm/s, Multiphasic US/US MONROE complete IMPRESSION: 1. Occlusion of the proximal left superficial femoral artery with reconstitution of the mid superficial femoral artery. 2. Elevated velocity in the left common femoral artery suggesting stenosis.
--- NOTE | ~2024-02-23 | US_ITS ---
EXAMINATION: NONINVASIVE ASSESSMENT OF THE ARTERIES OF BOTH LOWER EXTREMITIES INCLUDING BILATERAL LOWER EXTREMITY DUPLEX. CLINICAL INFORMATION: Peripheral vascular disease COMPARISON: Noninvasive arterial exam on 12/21/2021 TECHNIQUE: duplex Doppler techniques with wave form analysis and measurement of velocities in the common femoral, profunda femoral, superficial femoral, popliteal, tibial and peroneal arteries. The study was performed only at rest. FINDINGS: RIGHT LEG Common femoral artery: 130 cm/s, Multiphasic Profunda femoris artery: 112 cm/s, Multiphasic Superficial femoral artery (proximal): 167 cm/s, Multiphasic Superficial femoral artery (mid): 150 cm/s, Multiphasic Superficial femoral artery (distal): 80 cm/s, Multiphasic Proximal Popliteal artery: 53 cm/s, Multiphasic Mid posterior tibial artery: 35 cm/s, Multiphasic LEFT LEG: Common femoral artery: 207 cm/s, Multiphasic Profunda femoris artery: 107 cm/s, Multiphasic Superficial femoral artery (proximal): occluded Superficial femoral artery (mid): 120 cm/s, monophasic Superficial femoral artery (distal): 70 cm/s, monophasic Proximal Popliteal artery: 42 cm/s, monophasic Mid posterior tibial artery: 41 cm/s, Multiphasic US/US arterial duplex LE BI IMPRESSION: 1. Occlusion of the proximal left superficial femoral artery with reconstitution of the mid superficial femoral artery. 2. Elevated velocity in the left common femoral artery suggesting stenosis.
== END 2024-02-23 10:21 | disposition home or self-care (01) ==
LOC: HO.US 10:20
PROVIDERS: PCP Family Medicine; Visit Provider Surgery Vascular Surgery
DX: I73.9 Peripheral vascular disease, unspecified (principal)
CPT/HCPCS: 93923; 93925

== ENCOUNTER 2024-04-12 10:08 | Outpatient (AMB) | payer OTHER, SELFPAY ==
[2024-04-12 10:11] VITALS: BMI 32.4
--- NOTE | 2024-04-12 10:11 | A.OFFVIS_ITS ---
Vital Signs 04/12/24 10:11 Height 5 ft 2 in Weight 177 lb BMI 32.4 Intake Visit Reasons: 1 yr follow up Arterial US 02/23/24 Intake Note: 1 yr arterial US follow up 02/23/24, pt states no issues except restless leg syndrome. Accompanied by: Self / Same As Patient Allergies Sulfa (Sulfonamide Antibiotics) Allergy (Intermediate, Verified 04/12/24 10:13) rash on face. HPI HPI 1 yr follow up Arterial US 02/23/24: Details: Very pleasant 43-year-old female presents for follow-up regarding peripheral vascular disease. She did have an element of this in the past and is doing fairly well with all of this. She remains quite active and is able to walk about a 1/2 hour on the treadmill. 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 Also of note she has lost nearly 50 lb through diet and exercise and in addition she is on Otezla. She now presents for follow-up with arterial surveillance. [facility] Medical History Uncontrolled type 2 diabetes mellitus with hyperglycemia, with long-term current use of insulin High cholesterol Diabetes Surgical History No history of previous surgery Family History Mother Diabetes Family history of thyroid problem Father No known health problems Maternal Grandmother Diabetes Paternal Grandmother Diabetes Maternal Grandfather Substance abuse in family Brother Substance abuse in family Mental health disorder Paternal Uncle Mental health disorder Social History Household Members: Significant Other Household Members Other:: boyfriend Housing: Apartment Patient Tobacco Use Status: Never used Tobacco e-Cigarette/Vaping Use: Never Used Second Hand Smoke Exposure: No service: No Current occupational status: employed Current occupation: [employer] Current occupational exposures/hazards: No Cognitive needs: No Hearing needs: No Vision needs: No Female Reproductive History Menstrual Age of Menarche: 12 Review of Systems Const All systems reviewed & are unremarkable except as noted in HPI and below Reports no additional complaints ENT Reports Normal hearing present Card Denies chest pain, Denies chest pain at rest, Denies chest pain with activity and Denies pedal edema Resp Denies cough GI Denies abdominal pain Musc Denies abnormal gait, Denies muscle cramps and Denies radiating pain into limb Skin/Breast Denies skin ulcer and Denies wounds Neuro Reports Normal hearing present and Denies abnormal gait Psych Reports no additional complaints Physical Exam Vital Signs: BMI result Body Mass Index 32.4 Const General: cooperative, healthy appearing and comfortable Orientation/consciousness: oriented to person, oriented to place and oriented to time HEENT Head: Yes normal to inspection Neck Neck: Yes normal visual inspection Carotids: no bruits Chest Chest palpation & inspection: normal inspection of the chest Resp Effort & Inspection: normal respiratory effort and able to speak in complete sentences Auscultation: clear to auscultation bilaterally, no crackles, no rales, no rhonchi and no wheezes Cardio Other: Faintly palpable bilateral DP pulses Rate: regular rate Rhythm: regular rhythm Heart sounds: S1 normal heart sound present and S2 normal heart sound present Bruits: no carotid bruits Peripheral pulses: Peripheral pulses 2+ throughout GI Inspection: Yes normal to inspection Skin Wounds: no wounds Hair: normal Neuro General: oriented to person, oriented to place and oriented to time Cranial nerves: Yes CN's II-XII intact bilaterally and Yes Normal hearing present Cognition (Neuro): normal cognition Motor exam (neuro): 5/5 motor strength present throughout Extrem Other: venous exam: No significant superficial varicosities or spider telangiectasias, minimal edema General: No clubbing, No cyanosis and No edema Psych Appearance: grossly normal Mental Status: mental status grossly normal Speech and movement: Normal speech and movement present Results Reviewed Results Reviewed: Arterial testing dated 02/23/2024 demonstrates multi phasic flow bilaterally Assessment & Plan Assessment & Plan (1) PAD (peripheral artery disease): Code(s): I73.9 - Peripheral vascular disease, unspecified Category: Medical Plan: In short patient has stable claudication. I did review the pathophysiology of peripheral vascular disease with the patient. In addition we did discuss routine conservative measures including a healthy diet and the importance of exercise and ambulation. We did discuss risk factor modification. The patient will continue to to follow-up with surveillance follow-up in approximately 1 year. Thank you for allowing us to participate in this patient's care. If the re are any questions or concerns please do not hesitate to contact us. Orders: Orders US arterial duplex LE BI 1 Year I73.9 - Peripheral vascular disease, unspecified Coding Level of Care Code Est Pt Level 4 (59287) Diagnoses PAD (peripheral artery disease) I73.9
== END 2024-04-12 10:37 | disposition home or self-care (01) ==
PROVIDERS: PCP Family Medicine; Visit Provider Surgery Vascular Surgery
DX: I73.9 Peripheral vascular disease, unspecified (principal)
CPT/HCPCS: 99214

== ENCOUNTER → 2024-04-12 10:08 | Outpatient (BNVA) | payer OTHER, SELFPAY | PROVIDERS: PCP Family Medicine; Visit Provider Surgery Vascular Surgery | DX: I73.9 Peripheral vascular disease, unspecified (principal) | CPT/HCPCS: 99212 ==

== ENCOUNTER 2024-05-07 11:20 | Day surgery (SDC) | payer OTHER, SELFPAY ==
[2024-05-07 12:20] VITALS: BMI 33.5
[2024-05-07 12:31] LABS: UPreg QC Valid YES; Urine Pregnancy NEGATIVE (NEGATIVE)
[2024-05-07 12:42] VITALS: BP 166/78; PULSE 102; RESP 16; TEMP 36.7; O2SAT 100
[2024-05-07] MEDS: Lactated Ringers 1,000 ML 100 ML IVCONT (12:44)
--- NOTE | 2024-05-07 12:59 | P.CONAN_ITS ---
[facility] Active Problems Active Problems: All Active Problems Vertigo (Acute) Normochromic normocytic anemia (Acute) Asthma (Acute) Anemia (Acute) Abnormal mammogram of left breast (Acute) Iron deficiency anemia (Acute) Normocytic anemia (Acute) Viral upper respiratory illness (Acute) Paroxysmal atrial fibrillation (Acute) Hypertension (Acute) Tachycardia (Acute) Diarrhea (Acute) Nausea (Acute) Uncontrolled type 2 diabetes mellitus with hyperglycemia, with long-term current use of insulin (Acute) Adhesive capsulitis of both shoulders (Acute) Right shoulder pain (Acute) Screening for cervical cancer (Acute) Breast cancer screening by mammogram (Acute) Annual visit for general adult medical examination without abnormal findings (Acute) Varicose veins of right lower extremity with inflammation (Acute) PAD (peripheral artery disease) (Acute) Type 2 diabetes mellitus without complications (Acute) Claudication of both lower extremities (Acute) Neuropathy, diabetic (Acute) High cholesterol (Acute) Diabetes (Acute) Past Medical History Medical History Uncontrolled type 2 diabetes mellitus with hyperglycemia, with long-term current use of insulin High cholesterol Diabetes Family History Family History Mother Diabetes Family history of thyroid problem Father No known health problems Maternal Grandmother Diabetes Paternal Grandmother Diabetes Maternal Grandfather Substance abuse in family Brother Substance abuse in family Mental health disorder Paternal Uncle Mental health disorder Surgical History Surgical History No history of previous surgery History of Problems with Anesthesia: No Social History Social History Household Members: Significant Other Household Members Other:: boyfriend Housing: Apartment Patient Tobacco Use Status: Never used Tobacco e-Cigarette/Vaping Use: Never Used Second Hand Smoke Exposure: No Use of substances other than those prescribed or required for medical reasons: No Are you DNR?: No Advance Directives: No Advance Directives Information Provided: Yes service: No Current occupational status: employed Current occupation: [employer] Current occupational exposures/hazards: No Cognitive needs: No Hearing needs: No Vision needs: No Meds Allergies Allergy/AdvReac Type Severity Reaction Status Date / Time Sulfa (Sulfonamide Allergy Intermediate rash on Verified 04/12/24 10:13 Antibiotics) face. Active Medications: Current Medications Lactated Ringer's (Lr) 1,000 mls @ 100 mls/hr IVCONT .Q10H NAHOMY Last Admin: 05/07/24 12:44 Dose: 100 mls/hr Sodium Biphosphate/Sodium Phosphate (Sodium Phosphate,[place]-Dibasic 133 Ml Enema) 133 ml CA ONCE PRN PRN Reason: Poor Colonoscopy Prep Results Home Medications ?Medication ?Instructions ?Recorded ?Confirmed ?Last Taken ?Type apremilast 30 mg tablet (Otezla) 30 mg PO BID 03/19/21 05/07/24 Unknown History blood-glucose meter,continuous 05/27/22 11/28/23 Unknown History (Dexcom G6 Human Resources Training Manager) clobetasol 0.05 % topical cream 1 appl topical BID 07/08/22 11/28/23 Unknown History pen needle, diabetic 32 gauge x #50 ea 12/17/22 11/28/23 Unknown History (BD Belen 2nd Gen Pen Needle) cetirizine 10 mg tablet 10 mg PO DAILY 01/03/24 05/07/24 Unknown History Exam Height,Weight and Vital Signs: Height 5 ft 2 in Weight 83.007 kg Last Vital Signs Temp 98.1 F 05/07/24 12:42 Pulse 102 H 05/07/24 12:42 Resp 16 05/07/24 12:42 BP 166/78 H 05/07/24 12:42 Pulse Ox 100 05/07/24 12:42 O2 Del Method Room Air 05/07/24 12:42 Pertinent Lab Results Pertinent Lab Results: Laboratory Tests 05/07/24 12:18 Urine Test NEGATIVE Airway Mallampati Class: II TM Dist: >3cm Neck ROM: Full Loose/Missing/Broken Teeth: No Heart: RRR Lungs: CTA Assessment and Plan Assessment Anesthesia Assessment: Anesthesia Plan Discussed and Chart Reviewed Final Anesthetic Review History of Problems with Anesthesia: No NPO: Yes ASA Class: III Final Preanesthetic Review: Meds/Allgs Chart Reviewed, Consent Obtained/Reviewed and Anes Risks/Benef Reviewed Patient Risk: Intermediate Procedure Risk: Intermediate Anesthetic Plan Anesthetic Plan: MAC: Disposition: Standard PACU
[2024-05-07 14:14] VITALS: BP 123/64; PULSE 99; RESP 14; TEMP 36.1; O2SAT 99
--- NOTE | 2024-05-07 14:18 | PM.OP ---
Brief Operative Note Date of Service: 05/07/24 Pre-op diagnosis: GERD, Anemia, Screening Post-op diagnosis: other (Hiatal hernia, R/O Celiac disease, Internal hemorrhoids) Procedure: EGD with biopsies, Colonoscopy to the cecum and TI Surgeon: Michele Goldman MD Anesthesia: MAC Was an Executive Director Contract Shop used for this Procedure?: No Estimated blood loss (mL): 2.0 Pathology: other (A. Descending duodenum B. EG Junction at 35cm) Condition: stable Disposition: PACU
[2024-05-07 14:29] VITALS: BP 128/68; PULSE 90; RESP 18; TEMP 36.7; O2SAT 100
--- NOTE | 2024-05-07 14:53 | OP_ITS ---
DATE OF SERVICE: 05/07/2024 SURGEON: Michele Goldman MD INDICATIONS: The patient presents for evaluation of gastroesophageal reflux, colorectal cancer screening, and iron deficiency anemia. Full consent has been obtained from her for this, including risks of bleeding and perforation. PREOPERATIVE DIAGNOSIS: POSTOPERATIVE DIAGNOSIS: PROCEDURE PERFORMED: Esophagogastroduodenoscopy with biopsies, and colonoscopy to the cecum and terminal ileum. ESTIMATED BLOOD LOSS: COMPLICATIONS: ANESTHESIA: Monitored anesthesia care. ASSISTANTS: SPECIMENS: PREOPERATIVE DIAGNOSES: Gastroesophageal reflux, iron deficiency anemia, and colorectal cancer screening. POSTOPERATIVE DIAGNOSES: Gastroesophageal reflux, iron deficiency anemia, colorectal cancer screening, rule out celiac disease, small hiatal hernia, and internal hemorrhoids. DESCRIPTION OF PROCEDURE: The patient was placed in the left lateral decubitus position. The Olympus video gastroscope was passed in the posterior oropharynx and upper esophagus under direct vision. The scope was passed slowly into the distal esophagus. The gastroesophageal junction appeared at 35 cm. There was some very minimal irregularity, but no evidence of any esophagitis nor Jeter esophagus. The scope entered the stomach. There was a small hiatal hernia. The scope was advanced to the pylorus and the duodenum was cannulated to the descending portion. The duodenum including the bulb appeared normal without mass or ulceration. Biopsies were obtained from the 2nd and 3rd portions of duodenum. The scope was withdrawn back in the stomach. The gastric antrum and body appeared normal with good peristalsis. The scope was retroflexed, visualizing the proximal stomach carefully, which appeared normal, without any sign of mass or ulceration. The scope was straightened and withdrawn back to the esophagus. Biopsies were obtained at the EG junction at 35 cm. Proximal to this, the esophageal mucosa appeared normal. The scope was withdrawn from the patient. She was turned around for the colonoscopy. The digital rectal exam revealed no abnormalities. The Olympus video pediatric colonoscope was then entered into the rectum and advanced easily to the cecum. Once in the cecum, I did identify normal-appearing cecal pouch with appendiceal orifice and a normal-appearing ileocecal valve. The terminal ileum was cannulated and appeared normal. The scope was withdrawn back in the colon. The entire cecum and ileocecal valve appeared normal. The scope was slowly withdrawn assessing all mucosal surfaces carefully. Preparation was excellent. I did not visualize any sign of polyps, colitis, nor angiodysplasias. In the rectum, scope was retroflexed, visualizing small internal hemorrhoids, but no other pathology. The rectal mucosa appeared normal. The scope was straightened and withdrawn from the patient. She tolerated both procedures well and was returned to the recovery area in stable condition. IMPRESSION: 1. Hiatal hernia, gastroesophageal reflux. 2. Rule out celiac disease. 3. Internal hemorrhoids. PLAN: The results of the biopsies will be checked. I would recommend a repeat colonoscopy in 10 years for further screening purposes. She was advised to continue her omeprazole for her reflux. She was advised to resume her iron in regard to her anemia. She was also advised to resume her Eliquis in 48 hours and to resume her usual diabetes regimen. If things are stable, she will, otherwise, see me on a p.r.n. basis. MD TERRY Lomas/HERNANDEZ / [id number]
== END 2024-05-07 14:52 | disposition home or self-care (01) ==
PROVIDERS: Anesthesiology; PCP Family Medicine; Visit Provider Internal Medicine
PROC: (CPT 45378; principal; 2024-05-07 12:50)
DX: Z12.11 Encounter for screening for malignant neoplasm of colon (principal); K64.8 Other hemorrhoids; D50.9 Iron deficiency anemia, unspecified; I10 Essential (primary) hypertension; K21.9 Gastro-esophageal reflux disease without esophagitis; K44.9 Diaphragmatic hernia without obstruction or gangrene; E11.9 Type 2 diabetes mellitus without complications; E78.00 Pure hypercholesterolemia, unspecified; I48.91 Unspecified atrial fibrillation; L40.9 Psoriasis, unspecified; J45.909 Unspecified asthma, uncomplicated; Z79.899 Other long term (current) drug therapy; Z79.84 Long term (current) use of oral hypoglycemic drugs; Z79.85 Long-term (current) use of injectable non-insulin antidiabetic drugs; Z79.01 Long term (current) use of anticoagulants; Z88.2 Allergy status to sulfonamides
CPT/HCPCS: 45378; 43239; 81025; 88305; 88313; J2250; J2704

== ENCOUNTER 2024-06-25 09:37 | Outpatient (AMB) | payer OTHER, SELFPAY ==
--- NOTE | 2024-06-25 09:40 | A.OFFPC_ITS ---
Vital Signs 06/25/24 09:43 Height 5 ft 2 in Weight 183 lb 2 oz BMI 33.5 BP 136/72 Blood Pressure Location Rt brachial Position Sitting Respiration 14 Pulse 95 Pulse Source Pulse Oximeter Pulse Oximetry (%) 99 Oxygen Delivery Method Room Air Intake Visit Reasons: F/U diabetes and hypertension Intake Note: follow up on hypertension and diabetes Allergies Sulfa (Sulfonamide Antibiotics) Allergy (Intermediate, Verified 06/25/24 10:03) rash on face. Medication List - Last Reconciled 06/25/24 by Flor Bales, ON SITE NURSE-BC apremilast (Otezla) 30 mg PO BID blood-glucose meter,continuous (Dexcom G6 Skull Chopper) As directed blood-glucose sensor (Upmann'sStyle Georgette 3 Sensor device) As directed change every 14 days cetirizine 10 mg PO DAILY clobetasol 0.05% 1 appl topical BID empagliflozin (Jardiance) 10 mg PO DAILY gabapentin 300 mg PO BEDTIME 30 days insulin syringe-needle U-100 (Monoject Insulin Safety Syringe) TEST 3-4 TIMES DAILY lisinopril 20 mg PO DAILY 90 days metformin 1,000 mg PO BID needle (disp) 30 gauge (Monoject Hypodermic Baldwin) As directed omeprazole 20 mg PO DAILY 90 days pen needle, diabetic (BD Ultra-Fine Micro Pen Needle) Tst 4 times a day, As directed. 90 days pen needle, diabetic (Novofine 32) 4 times a day As directed, 90 days pen needle, diabetic (BD Belen 2nd Gen Pen Needle) As directed once a day rivaroxaban (Xarelto) 20 mg PO QPM 90 days simvastatin 20 mg PO BEDTIME 90 days Tobacco use date assessed: 02/03/24 Dental Screening Dental Screen Date: 02/03/24 HPI HPI Comments History of Present Illness Details 43 yo F with DM 2 with complication, scot g term use of insulin, neuropathy, Severe nonproliferative diabetic retinopathy bilat, HLD, PAD with claudication, microalbuminuria, PAF, secondary hypercoaguable state, HTN , GERD, hiatal hernia, anemia, class 1 obesity, psoriatic arthritis Health Maintenance: Colon 05/06/24 WNL [address] Goldman Mammgisele 02/16/24 Pap 12/14/22 Diabetic Eye exam: 02/02/24 Severe nonproliferative diabetic retinopathy bilat Specialist Op[facility] Scott podiatry Cards Vasc CHADSVASc score of 4 Here today to fu on chronic conditions At the last office visit, Ozempic was increased; she stopped taking as it was causing vomiting 3 x a week and the higher dose was not covered by insurance Does not have CGM reports insurance issues - she is actively working on this. She is doing finger sticks, reports they are high ; she is currently taking metformin 1000mg po BID and Jardiance 10mg QD She would like to start back on Trulicity as she tolerated this well. Was feeling dizzy before and thought this was related her BP. This cont. Not daily. Sporadic. Last time Tuesday. When looking up or croaching down. Start black cahosh for hot flashes On JANUSZ inhibitor and statin She is now on Otezla for psoriatic arthritis Annual visits with vascular for PID with intermittent claudication Denies any overt bleeding, tolerating ferrous sulfate without GI side effects Exam: Awake alert NAD RRR LS CTAB BLE no edema, hairless, chronic vascular discoloration bilat R>L, decreased PP Plan A1c today 8.2%, check additional labs today, see below stable. Refer to vestibular therapy Refer to NN to help w insurance barriers New Rx for freestyle georgette sent to pharmacy New RX for Trulicity, lowest dose sent -- PA required. Pt made aware today. Cont all meds. Refills sent as requested. Declined Flu FU 3 mo with PCP routine, sooner PRN This note is constructed using voice recognition software. While every effort has been made to ensure accuracy in game programer, still errors may have been included Sometimes, these errors may affect the content or meaning of the given sentence . Total time spent caring for the patient today was 45 minutes. This includes time spent before the visit reviewing the chart, time spent during the visit, and time spent after the visit on documentation [facility] Medical History (Updated 06/25/24 @ 14:54 by ALICIA Nguyen) Anemia Adhesive capsulitis of both shoulders Vertigo High cholesterol Diabetes Surgical History No history of previous surgery Family History Mother Diabetes Family history of thyroid problem Father No known health problems Maternal Grandmother Diabetes Paternal Grandmother Diabetes Maternal Grandfather Substance abuse in family Brother Substance abuse in family Mental health disorder Paternal Uncle Mental health disorder Social History Household Members: Significant Other Household Members Other:: boyfriend Housing: Apartment Patient Tobacco Use Status: Never used Tobacco e-Cigarette/Vaping Use: Never Used Second Hand Smoke Exposure: No service: No Current occupational status: employed Current occupation: [employer] Current occupational exposures/hazards: No Cognitive needs: No Hearing needs: No Vision needs: No Female Reproductive History Menstrual Age of Menarche: 12 Questionnaire PHQ-9 Over the last 2 weeks, how often have you been bothered by any of the following problems? 1. Little interest or pleasure in doing things: not at all 2. Feeling down, depressed, or hopeless: not at all 3. Trouble falling or staying asleep, or sleeping too much: not at all 4. Feeling tired or having little energy: not at all 5. Poor appetite or overeating: not at all 6. Feeling bad about yourself - or that you are a failure or have let yourself or your family down: not at all 7. Trouble concentrating on things, such as reading the newspaper or watching television: not at all 8. Moving or speaking so slowly that other people could have noticed. Or the opposite - being so fidgety or restless that you have been moving around a lot more than usual: not at all 9. Thoughts that you would be better off or of hurting yourself in some way: not at all Total score: 0 Depression Screening Interpretation: Negative Depression Screening Done: Yes 35631 - PHQ-9 Billing: Yes Source: Developed by Drs. Michele Mariee, Samantha Cano, Juan Luis Goetz and colleagues, with an educational jalyn from [employer] Thrive Questionnaire Date Thrive assessed: 06/25/24 I am a: Patient What is your living situation today?: I have a steady place to live Within the past 12 months, did the food you bought not last and you didn't have the money to get more?: Never true Within the past 12 months, did you worry whether your food would run out before you got money to buy more?: Never true Do you have trouble paying for medicines?: No Do you have trouble getting transportation to medical appointments?: No Do you have trouble paying your heating and electricity bill?: No Do you have trouble taking care of your child, family member or friend?: No Do you have trouble with day-to-day activities such as bathing, preparing meals, shopping, managing finances, etc.?: No Are you currently unemployed and looking for a job?: No Please select the resources that you would like help with: None Currently or been in a relationship where the following occur: No concerns reported THRIVE Score: 0 AUDIT C Alcohol Use Questionnaire (AUDIT-C) 1. How often do you have a drink containing alcohol?: Never 2. How many drinks containing alcohol do you have on a typical day when you are drinking?: 1 or 2 3. How often do you have six or more drinks on one occasion?: Never Total Score: 0 Score Reviewed/Action Taken: Yes JAZMIN-7 AMB Questionnaire JAZMIN-7 Date JAZMIN - 7 assessed: 06/25/24 Feeling nervous, anxious, or on edge: 0 = Not at all Not being able to stop or control worryin = Not at all Worrying too much about different things: 0 = Not at all Trouble relaxin = Not at all Being so restless that it is hard to sit still: 0 = Not at all Becoming easily annoyed or irritable: 0 = Not at all Feeling afraid as if something awful might happen: 0 = Not at all Total JAZMIN-7 score (0-4 normal; 5-9 mild; 10-14 moderate; 15-21 severe): 0 Source: Developed by Drs. Michele Mariee, Samantha Cano, Juan Luis Goetz and colleagues, with an educational jalyn from [employer]. JAZMIN-7 Assessment Billing JAZMIN-7 Assessment Tool: JAZMIN-7 Assessment 65910 ACT Questionnaire In the past 4 weeks, how much of the time did your asthma keep you from getting as much done at work, school or at home?: None of the time During the past 4 weeks, how often have you had shortness of breath?: Not at all During the past 4 weeks, how often did your asthma symptoms wake you up at night or earlier than usual in the morning?: Not at all During the past 4 weeks, how often have you had to use your rescue inhaler or nebulizer medication?: Not at all How would you rate your asthma control during the past 4 weeks?: Completely controlled Score: 25 Physical exam (Primary Care) Vital Signs: Last Vital Signs Pulse 95 06/25/24 09:43 Resp 14 06/25/24 09:43 BP 136/72 06/25/24 09:43 Pulse Ox 99 06/25/24 09:43 Oxygen Delivery Method Room Air 06/25/24 09:43 BMI result Body Mass Index 33.5 BMI Assessment/Plan discussion: High BMI High, discussed plan: lifestyle Tobacco/Smoking Status: Tobacco use Status Tobacco use date assessed 02/03/24 06/25/24 09:42 Patient Tobacco Use Status Never used Tobacco 06/25/24 09:42 e-Cigarette/Vaping Use Never Used 06/25/24 09:42 PHQ-9: PHQ-9 Score PHQ-9: Total score 0 06/25/24 10:17 Depression Screening Interpretation: Negative Thrive Assessment: Date of Thrive Assessment Date Thrive assessed 05/21/21 06/25/24 09:42 Currently or been in a relationship where the following occur: No concerns reported Results AMB Hemoglobin A1c AMB Hemoglobin A1c 8.2 % Last Edit by Carol Devine MA on 06/25/24 10:19 Results Reviewed Results Reviewed: Laboratory Last Values Hgb A1c (Clinic) 8.2 % (4.0-6.0) H 06/25/24 10:01 RUN: 06/25/24 1450 PAGE 1 [facility] [address] [place] [id number] Flour Broker: Etienne Ellis M.D. Specimen Inquiry Name: Pooja Brooks Age/Sex: 43/F : 1980 Unit#: [id number] Attend Dr: Etienne Monge MD Re06/25/24 Status: REG REF Location: [facility] Disch: SPEC : [id number] LIAM: 06/25/24 STATUS: COMP REQ : [id number] RECD: 06/25/[address]: Flor Bales COMP: 06/25/24 ENTERED: 06/25/[address]: Etienne Monge MD ORDERED: MICARU Test Result Flag Reference Creat, Ur 100.94 mg/dL Microalbumin Ur 210.0 mg/L Alb/Creat Ratio 208.0 H <30 ug/mg cr Albumin/Creatinine Ratio Reference Ranges: Normal: < 30 ug/mg creatinine Microalbuminuria: 30 - 300 ug/mg creatinine Clinical Albuminuria: > 300 ug/mg creatinine END OF REPORT RUN: 06/25/24 1514 PAGE 1 [facility] [address] [place] [phone] Flour Broker: Etienne Ellis M.D. Specimen Inquiry Name: Pooja Brooks Age/Sex: 43/F : 1980 Unit#: [id number] Attend Dr: Etienne Monge MD Re06/25/24 Status: REG REF Location: [facility] Disch: SPEC : [id number] LIAM: 06/25/24 STATUS: COMP REQ : [id number] RECD: 06/25/[address]: Etienne Monge MD COMP: 06/25/24 ENTERED: 06/25/[address]: Flor Bales ORDERED: CBC Auto Diff, Retic/R Test Result Flag Reference WBC 10.8 4.8-10.8 X10*3/uL RBC 4.77 4.20-5.50 X10*6/uL HGB 12.8 12.0-16.0 g/dl HCT 40.2 37.0-47.0 % MCV 84.3 80.0-98.0 fL MCH 26.8 L 27.0-33.0 pg MCHC 31.8 31.0-35.0 g/dl RDW 16.3 H 11.0-16.0 % PLT 459 H 160-400 X10*3/uL MPV 10.8 9.4-12.3 fL Neut Pct Auto 61.7 45-73 % ImGran Pct Auto 0.4 0.0-0.4 % Lymp Pct Auto 24.8 20-40 % Kenton Pct Auto 8.3 2-11 % Eos Pct Auto 4.3 H 0-4 % Baso Pct Auto 0.5 0-2 % NRBC Pct Auto 0.0 0.0-0.2 /100WBC ANC Neut Abs # 6.7 2.0-8.3 x10*3/uL ImGran Abs Auto 0.04 H 0.00-0.03 X10*3/uL Lymph Abs Auto 2.7 1.2-4.9 X10*3/uL Kenton Abs Auto 0.9 0.1-1.2 X10*3/uL Eos Abs Auto 0.5 H 0.0-0.4 X10*3/uL Baso Abs Auto 0.1 0.0-0.2 X10*3/uL NRBC Abs Auto 0.000 0.0-0.012 X10*3/uL Retic Abs 0.076 0.026-0.095 X10*6/uL IMM RETIC FRACT 21.5 H 3.0-15.9 % Retic HGB Equiv 32.7 30.0-35.0 pg Retic Pct 1.6 0.5-1.8 % RUN: 06/25/24 1514 PAGE 1 [facility] [address] [place] [phone] Flour Broker: Etienne Ellis M.D. Specimen Inquiry Name: Pooja Brooks Age/Sex: 43/F : 1980 Unit#: [id number] Attend Dr: Etienne Monge MD Re06/25/24 Status: REG REF [facility] Disch: SPEC : [id number] LIAM: 06/25/24 STATUS: COMP REQ : [id number] RECD: 06/25/[address]: Etienne Monge MD COMP: 06/25/241355 ENTERED: 06/25/[address] [facility] [address]: Flor Bales ON SITE NURSE- ORDERED: CMP, IRON PROF/R Test Result Flag Reference Sodium 137 135-145 mmol/L Potassium 4.2 3.3-5.1 mmol/L CL 104 96-108 mmol/L CO2 24 22-29 mmol/L Gap 13 12-20 BUN 14 9-16 mg/dL Creat 0.72 0.5-1.4 mg/dL EGFR > 60 NOTE: For -Citizen Of [place] individuals, multiply the result by 1.210. Chronic Kidney Disease: Estimated GFR < 60 mL/min/1.73m2 Severe Kidney Disease: Estimated GFR < 15 mL/min/1.73m2 Glucose, Random 154 H 60-115 mg/dL CA 9.8 8.4-10.2 mg/dL Iron 55 30-160 mcg/dL TIBC 346 228-428 mcg/dL Saturation 16 15-50 % UIBC 291 ug/dL Total Bili 0.3 0.0-1.0 mg/dL AST (GOT) 19 5-31 U/L ALT (GPT) 26 0-31 U/L Protein, Total 7.7 6.5-8.0 g/dL Alb 4.1 3.5-5.0 g/dL Alk Phos 92 39-117 U/L Coding Level of Care Code Est Pt Level 5 (18984) Complex EM visit Add On G2211 Diagnoses Uncontrolled type 2 diabetes mellitus with hyperglycemia, with long-term current use of insulin E11.65; Z79.4 High cholesterol E78.00 Diabetic polyneuropathy associated with type 2 diabetes mellitus E11.42 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 type: type 2 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 complication detail: diabetic polyneuropathy Hypertension due to endocrine disorder I15.2 Hypertension type: secondary to endocrine disorders Paroxysmal atrial fibrillation I48.0 Other iron deficiency anemia D50.8 Iron deficiency anemia type: other iron deficiency Microalbuminuria due to type 2 diabetes mellitus E11.29; R80.9 Secondary hypercoagulable state D68.69 Severe nonproliferative diabetic retinopathy of both eyes without macular edema associated with type 2 diabetes mellitus E11.3493 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 type: type 2 Diabetic retinopathy severity: with severe nonproliferative retinopathy 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 macular edema: without macular edema Allergy status to sulfonamides Z88.2 Claudication of both lower extremities I73.9 PAD (peripheral artery disease) I73.9 BMI 33.0-33.9,adult Z68.33 Class 1 obesity E66.811 Benign paroxysmal positional vertigo due to bilateral vestibular disorder H81.13 Laterality: bilateral Psoriatic arthritis L40.50 Additional Codes JAZMIN-7 Assessment Billing - JAZMIN-7 Assessment Tool: JAZMIN-7 Assessment [id number] ([id number]) Assessment & Plan Assessment & Plan (1) Uncontrolled type 2 diabetes mellitus with hyperglycemia, with long-term current use of insulin: Code(s): E11.65 - Type 2 diabetes mellitus with hyperglycemia; Z79.4 - 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 (2) High cholesterol: Code(s): E78.00 - Pure hypercholesterolemia, unspecified Category: Medical Plan: . (3) Neuropathy, diabetic: Code(s): E11.40 - Type 2 diabetes mellitus with diabetic neuropathy, unspecified Category: Medical Qualifiers: 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 type: type 2 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 complication detail: diabetic polyneuropathy Qualified Code(s): E11.42 - Type 2 diabetes mellitus with diabetic polyneuropathy Plan: . (4) Hypertension: Code(s): I10 - Essential (primary) hypertension Category: Medical Qualifiers: Hypertension type: secondary to endocrine disorders Qualified Code(s): I15.2 - Hypertension secondary to endocrine disorders (5) Paroxysmal atrial fibrillation: Comment: with secondary hypercoaguable state on xarelto managed by Cards Code(s): I48.0 - Paroxysmal atrial fibrillation Category: Medical Plan: . (6) Iron deficiency anemia: Code(s): D50.9 - Iron deficiency anemia, unspecified Category: Medical Qualifiers: Iron deficiency anemia type: other iron deficiency Qualified Code(s): D50.8 - Other iron deficiency anemias Plan: . (7) Microalbuminuria due to type 2 diabetes mellitus: Code(s): E11.29 - Type 2 diabetes mellitus with other diabetic kidney complication; R80.9 - Proteinuria, unspecified Category: Medical Plan: . (8) Secondary hypercoagulable state: Comment: d/t afib, on xarelto Code(s): D68.69 - Other thrombophilia Category: Medical Plan: . (9) Diabetic retinopathy of both eyes: Code(s): E11.319 - Type 2 diabetes mellitus with unspecified diabetic retinopathy without macular edema Category: Medical Qualifiers: 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 type: type 2 Diabetic retinopathy severity: with severe nonproliferative retinopathy 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 macular edema: without macular edema Qualified Code(s): E11.3493 - Type 2 diabetes mellitus with severe nonproliferative diabetic retinopathy without macular edema, bilateral Plan: . (10) Allergy status to sulfonamides: Code(s): Z88.2 - Allergy status to sulfonamides Category: Medical Plan: . (11) Claudication of both lower extremities: Code(s): I73.9 - Peripheral vascular disease, unspecified Category: Medical Plan: . (12) PAD (peripheral artery disease): Code(s): I73.9 - Peripheral vascular disease, unspecified Category: Medical Plan: . (13) BMI 33.0-33.9,adult: Code(s): Z68.33 - Body mass index [BMI] 33.0-33.9, adult Category: Medical Plan: . (14) Class 1 obesity: Code(s): E66.811 - Obesity, class 1 Category: Medical Plan: . (15) BPPV (benign paroxysmal positional vertigo): Code(s): H81.10 - Benign paroxysmal vertigo, unspecified ear Category: Medical Qualifiers: Laterality: bilateral Qualified Code(s): H81.13 - Benign paroxysmal vertigo, bilateral Plan: . (16) Psoriatic arthritis: Code(s): L40.50 - Arthropathic psoriasis, unspecified Category: Medical Plan . Orders: Orders PT Evaluation and Treatment Today H81.10 - Benign paroxysmal vertigo, unspecified ear IRON PROFILE Today D50.9 - Iron deficiency anemia, unspecified, E11.29 - Type 2 diabetes mellitus with other diabetic kidney complication, E11.40 - Type 2 diabetes mellitus with diabetic neuropathy, unspecified, E11.65 - Type 2 diabetes mellitus with hyperglycemia, E78.00 - Pure hypercholesterolemia, unspecified, I10 - Essential (primary) hypertension, I48.0 - Paroxysmal atrial fibrillation, R80.9 - Proteinuria, unspecified, Z79.4 - intermediate (current) use of insulin LDL Cholesterol Direct Today D50.9 - Iron deficiency anemia, unspecified, E11.29 - Type 2 diabetes mellitus with other diabetic kidney complication, E11.40 - Type 2 diabetes mellitus with diabetic neuropathy, unspecified, E11.65 - Type 2 diabetes mellitus with hyperglycemia, E78.00 - Pure hypercholesterolemia, unspecified, I10 - Essential (primary) hypertension, I48.0 - Paroxysmal atrial fibrillation, R80.9 - Proteinuria, unspecified, Z79.4 - 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 (current) use of insulin TSH reflex Free T4 Today D50.9 - Iron deficiency anemia, unspecified, E11.29 - Type 2 diabetes mellitus with other diabetic kidney complication, E11.40 - Type 2 diabetes mellitus with diabetic neuropathy, unspecified, E11.65 - Type 2 diabetes mellitus with hyperglycemia, E78.00 - Pure hypercholesterolemia, unspe cified, I10 - Essential (primary) hypertension, I48.0 - Paroxysmal atrial fibrillation, R80.9 - Proteinuria, unspecified, Z79.4 - intermediate (current) use of insulin AMB Hemoglobin A1c Today E11.65 - Type 2 diabetes mellitus with hyperglycemia, Z79.4 - 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 Panel Today D50.9 - Iron deficiency anemia, unspecified, E11.29 - Type 2 diabetes mellitus with other diabetic kidney complication, E11.40 - Type 2 diabetes mellitus with diabetic neuropathy, unspecified, E11.65 - Type 2 diabetes mellitus with hyperglycemia, E78.00 - Pure hypercholesterolemia, unspecified, I10 - Essential (primary) hypertension, I48.0 - Paroxysmal atrial fibrillation, R80.9 - Proteinuria, unspecified, Z79.4 - intermediate (current) use of insulin Microalbumin, Random (w Creat) Today D50.9 - Iron deficiency anemia, unspecified, E11.29 - Type 2 diabetes mellitus with other diabetic kidney complication, E11.40 - Type 2 diabetes mellitus with diabetic neuropathy, unspecified, E11.65 - Type 2 diabetes mellitus with hyperglycemia, E78.00 - Pure hypercholesterolemia, unspecified, I10 - Essential (primary) hypertension, I48.0 - Paroxysmal atrial fibrillation, R80.9 - Proteinuria, unspecified, Z79.4 - 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 (current) use of insulin Vitamin B12 and Folate Today D50.9 - Iron deficiency anemia, unspecified, E11.29 - Type 2 diabetes mellitus with other diabetic kidney complication, E11.40 - Type 2 diabetes mellitus with diabetic neuropathy, unspecified, E11.65 - Type 2 diabetes mellitus with hyperglycemia, E78.00 - Pure hypercholesterolemia, unspecified, I10 - Essential (primary) hypertension, I48.0 - Paroxysmal atrial fibrillation, R80.9 - Proteinuria, unspecified, Z79.4 - 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 (current) use of insulin Vitamin D 25-OH Total Today D50.9 - Iron deficiency anemia, unspecified, E11.29 - Type 2 diabetes mellitus with other diabetic kidney complication, E11.40 - Type 2 diabetes mellitus with diabetic neuropathy, unspecified, E11.65 - Type 2 diabetes mellitus with hyperglycemia, E78.00 - Pure hypercholesterolemia, unspecified, I10 - Essential (primary) hypertension, I48.0 - Paroxysmal atrial fibrillation, R80.9 - Proteinuria, unspecified, Z79.4 - 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
[2024-06-25 09:43] VITALS: BP 136/72; PULSE 95; RESP 14; O2SAT 99; BMI 33.5
== END 2024-06-25 10:25 | disposition home or self-care (01) ==
PROVIDERS: PCP Family Medicine; Visit Provider Nurse Practitioner Family
DX: E11.65 Type 2 diabetes mellitus with hyperglycemia (principal); Z79.4 Long term (current) use of insulin; E11.42 Type 2 diabetes mellitus with diabetic polyneuropathy; I48.0 Paroxysmal atrial fibrillation; E11.29 Type 2 diabetes mellitus with other diabetic kidney complication; D68.69 Other thrombophilia; E11.3493 Type 2 diabetes mellitus with severe nonproliferative diabetic retinopathy without macular edema, bilateral; L40.50 Arthropathic psoriasis, unspecified; I73.9 Peripheral vascular disease, unspecified; E78.00 Pure hypercholesterolemia, unspecified; I15.2 Hypertension secondary to endocrine disorders; D50.8 Other iron deficiency anemias

== ENCOUNTER → 2024-06-25 09:37 | Outpatient (BNVA) | payer OTHER, SELFPAY | PROVIDERS: PCP Family Medicine; Visit Provider Nurse Practitioner Family | DX: E11.65 Type 2 diabetes mellitus with hyperglycemia (principal); Z79.4 Long term (current) use of insulin; E78.00 Pure hypercholesterolemia, unspecified; E11.42 Type 2 diabetes mellitus with diabetic polyneuropathy; I15.2 Hypertension secondary to endocrine disorders; I48.0 Paroxysmal atrial fibrillation; D50.8 Other iron deficiency anemias; E11.29 Type 2 diabetes mellitus with other diabetic kidney complication; R80.9 Proteinuria, unspecified; D68.69 Other thrombophilia; E11.3493 Type 2 diabetes mellitus with severe nonproliferative diabetic retinopathy without macular edema, bilateral; Z88.2 Allergy status to sulfonamides; I73.9 Peripheral vascular disease, unspecified; E66.811 Obesity, class 1; Z68.33 Body mass index [BMI] 33.0-33.9, adult; H81.13 Benign paroxysmal vertigo, bilateral; L40.50 Arthropathic psoriasis, unspecified; Z71.3 Dietary counseling and surveillance | CPT/HCPCS: 83036; 96127; 99212 ==

== ENCOUNTER 2024-06-25 10:49 | Outpatient (REF) | payer OTHER, SELFPAY ==
[2024-06-25 13:37] LABS: MANUAL DIFF FLAG NO
[2024-06-25 13:41] LABS: Basophils Absolute Auto 0.1 X10*3/uL (0.0-0.2); Basophils Percent Auto 0.5 % (0-2); Eosinophils Absolute Auto 0.5 X10*3/uL (0.0-0.4); Eosinophils Percent Auto 4.3 % (0-4); Hematocrit 40.2 % (37.0-47.0); Hemoglobin 12.8 g/dl (12.0-16.0); Imm Gran Abs Auto 0.04 X10*3/uL (0.00-0.03); Imm Gran Pct Auto 0.4 % (0.0-0.4); Immature Retic Fraction 21.5 % (3.0-15.9); Lymphocytes Absolute Auto 2.7 X10*3/uL (1.2-4.9); Lymphocytes Percent Auto 24.8 % (20-40); Mean Corpuscular HGB Conc 31.8 g/dl (31.0-35.0); Mean Corpuscular Hemoglobin 26.8 pg (27.0-33.0); Mean Corpuscular Volume 84.3 fL (80.0-98.0); Mean Platelet Volume 10.8 fL (9.4-12.3); Monocytes Absolute Auto 0.9 X10*3/uL (0.1-1.2); Monocytes Percent Auto 8.3 % (2-11); Neutrophils Absolute Auto 6.7 x10*3/uL (2.0-8.3); Neutrophils Percent Auto 61.7 % (45-73); Platelet Count 459 X10*3/uL (160-400); Red Blood Count 4.77 X10*6/uL (4.20-5.50); Red Cell Distribution Width 16.3 % (11.0-16.0); Retic HGB Equivalent 32.7 pg (30.0-35.0); Reticulocyte Percent 1.6 % (0.5-1.8); Reticulocytes Absolute 0.076 X10*6/uL (0.026-0.095); White Blood Count 10.8 X10*3/uL (4.8-10.8)
[2024-06-25 13:55] LABS: Alanine Aminotransferase 26 U/L (0-31); Albumin Level 4.1 g/dL (3.5-5.0); Alkaline Phosphatase 92 U/L (39-117); Anion Gap 13 (12-20); Aspartate Amino Transferase 19 U/L (5-31); Bilirubin Total 0.3 mg/dL (0.0-1.0); Blood Urea Nitrogen 14 mg/dL (9-16); Calcium 9.8 mg/dL (8.4-10.2); Carbon Dioxide 24 mmol/L (22-29); Chloride 104 mmol/L (96-108); Estimated Glomerular Filt Rate > 60; Glucose Random 154 mg/dL (60-115); Iron 55 mcg/dL (30-160); Percent Iron Saturation 16 % (15-50); Potassium 4.2 mmol/L (3.3-5.1); Sodium 137 mmol/L (135-145); Total Iron Binding Capacity 346 mcg/dL (228-428); Total Protein 7.7 g/dL (6.5-8.0); Unsaturated Iron Binding 291 ug/dL
[2024-06-25 14:10] LABS: Ferritin 22 ng/mL (10-250); TSH reflex Free T4 0.59 uIU/mL (0.32-4.0); Vitamin D 25-OH Total 33.9 ng/mL (>30)
[2024-06-25 14:11] LABS: Creatinine Urine 100.94 mg/dL
[2024-06-25 14:25] LABS: Folate 9.6 ng/mL (> or = 4.0); Vitamin B12 326 pg/mL (200-900)
[2024-06-26 17:58] LABS: LDL Cholesterol Direct 133 mg/dL (<100)
== END 2024-06-25 10:50 | disposition home or self-care (01) ==
LOC: HO.WFDLDS 10:49
PROVIDERS: Internal Medicine Medical Oncology; Referring Provider Nurse Practitioner Family; Visit Provider Family Medicine
DX: Z00.00 Encounter for general adult medical examination without abnormal findings (principal); Z79.4 Long term (current) use of insulin; E11.65 Type 2 diabetes mellitus with hyperglycemia; D64.9 Anemia, unspecified; D72.829 Elevated white blood cell count, unspecified; D50.9 Iron deficiency anemia, unspecified; E11.29 Type 2 diabetes mellitus with other diabetic kidney complication; R80.9 Proteinuria, unspecified; I48.0 Paroxysmal atrial fibrillation; I10 Essential (primary) hypertension; E11.40 Type 2 diabetes mellitus with diabetic neuropathy, unspecified; E78.00 Pure hypercholesterolemia, unspecified
CPT/HCPCS: 36415; 80053; 81206; 81207; 81219; 81270; 81279; 81339; 82043; 82306; 82570; 82607; 82728; 82746; 83540; 83721; 84443; 85025; 85045

== ENCOUNTER 2024-09-25 11:53 | Outpatient (AMB) | payer OTHER, SELFPAY ==
--- NOTE | 2024-09-25 12:01 | A.OFFPC_ITS ---
Vital Signs 09/25/24 12:14 Height 5 ft 2 in Weight 188 lb 4 oz BMI 34.4 BP 150/70 H Blood Pressure Location Rt brachial Position Sitting Respiration 16 Pulse 96 Pulse Source Pulse Oximeter Pulse Oximetry (%) 99 Oxygen Delivery Method Room Air Intake Visit Reasons: [address] Varma routine fu - see comments Intake Note: dm follow up Allergies Sulfa (Sulfonamide Antibiotics) Allergy (Intermediate, Verified 09/25/24 12:13) rash on face. Medication List - Last Reconciled 09/25/24 by Etienne Monge MD apremilast (Otezla) 30 mg PO BID blood-glucose sensor (FreeStyle Georgette 3 Sensor device) As directed change every 14 days cetirizine 10 mg PO DAILY clobetasol 0.05% 1 appl topical BID dulaglutide 1.5 mg (0.5 mL) subcut QWEEK 28 days empagliflozin (Jardiance) 10 mg PO DAILY ferrous sulfate 325 mg PO DAILY insulin syringe-needle U-100 (Monoject Insulin Safety Syringe) TEST 3-4 TIMES DAILY lisinopril 20 mg PO DAILY 90 days metformin 1,000 mg PO BID 90 days needle (disp) 30 gauge (Monoject Hypodermic [place]) As directed omeprazole 20 mg PO DAILY 90 days pen needle, diabetic (BD Ultra-Fine Micro Pen Needle) Tst 4 times a day, As directed. 90 days pen needle, diabetic (Novofine 32) 4 times a day As directed, 90 days pen needle, diabetic (BD [place] 2nd Gen Pen Needle) As directed once a day rivaroxaban (Xarelto) 20 mg PO QPM 90 days simvastatin 40 mg PO BEDTIME Tobacco use date assessed: 02/03/24 Dental Screening Dental Screen Date: 02/03/24 HPI 3 mo [address] Varma routine fu - see comments HPI Details 43 y/o female presents to f/u chronic co nditions, diabetes. A1c today 09/25/24 7.8%. Continues to take simvastatin 40mg for her cholesterol. Labs drawn June. LDL 133. Some microalbuminuria. Has been recently keeping herself active as she is in the process of moving. [facility] Medical History (Updated 09/25/24 @ 12:36 by Sheng Haji) Anemia Adhesive capsulitis of both shoulders Vertigo High cholesterol Diabetes Surgical History No history of previous surgery Family History Mother Diabetes Family history of thyroid problem Father No known health problems Maternal Grandmother Diabetes Paternal Grandmother Diabetes Maternal Grandfather Substance abuse in family Brother Substance abuse in family Mental health disorder Paternal Uncle Mental health disorder Social History Household Members: Significant Other Household Members Other:: boyfriend Housing: Apartment Patient Tobacco Use Status: Never used Tobacco e-Cigarette/Vaping Use: Never Used Second Hand Smoke Exposure: No service: No Current occupational status: employed Current occupation: [employer] Current occupational exposures/hazards: No Cognitive needs: No Hearing needs: No Vision needs: No Female Reproductive History Menstrual Age of Menarche: 12 Questionnaire PHQ-9 Over the last 2 weeks, how often have you been bothered by any of the following problems? 1. Little interest or pleasure in doing things: not at all 2. Feeling down, depressed, or hopeless: not at all 3. Trouble falling or staying asleep, or sleeping too much: not at all 4. Feeling tired or having little energy: several days 5. Poor appetite or overeating: not at all 6. Feeling bad about yourself - or that you are a failure or have let yourself or your family down: not at all 7. Trouble concentrating on things, such as reading the newspaper or watching television: not at all 8. Moving or speaking so slowly that other people could have noticed. Or the opposite - being so fidgety or restless that you have been moving around a lot more than usual: not at all 9. Thoughts that you would be better off or of hurting yourself in some way: not at all Total score: 1 Source: Developed by Drs. Michele Mariee, Samantha Cano, Juan Luis Goetz and colleagues, with an educational jalyn from [employer]. Thrive Questionnaire Date Thrive assessed: 09/22/24 I am a: Patient What is your living situation today?: I have a steady place to live Within the past 12 months, did the food you bought not last and you didn't have the money to get more?: Never true Within the past 12 months, did you worry whether your food would run out before you got money to buy more?: Never true Do you have trouble paying for medicines?: No Do you have trouble getting transportation to medical appointments?: No Do you have trouble paying your heating and electricity bill?: No Do you have trouble taking care of your child, family member or friend?: No Do you have trouble with day-to-day activities such as bathing, preparing meals, shopping, managing finances, etc.?: No Are you currently unemployed and looking for a job?: Yes Are you interested in more education?: No Please select the resources that you would like help with: None Currently or been in a relationship where the following occur: No concerns reported THRIVE Score: 0 AUDIT C Alcohol Use Questionnaire (AUDIT-C) 1. How often do you have a drink containing alcohol?: Never 3. How often do you have six or more drinks on one occasion?: Never Total Score: 0 JAZMIN-7 AMB Questionnaire JAZMIN-7 Date JAZMIN - 7 assessed: 06/25/24 Feeling nervous, anxious, or on edge: 0 = Not at all Not being able to stop or control worryin = Not at all Worrying too much about different things: 0 = Not at all Trouble relaxin = Not at all Being so restless that it is hard to sit still: 0 = Not at all Becoming easily annoyed or irritable: 0 = Not at all Feeling afraid as if something awful might happen: 0 = Not at all Total JAZMIN-7 score (0-4 normal; 5-9 mild; 10-14 moderate; 15-21 severe): 0 Source: Developed by Drs. Michele Mariee, Samantha Cano, Juan Luis Goetz and colleagues, with an educational jalyn from [employer]. Physical exam (Primary Care) Vital Signs: Last Vital Signs Pulse 96 09/25/24 12:14 Resp 16 09/25/24 12:14 BP 150/70 H 09/25/24 12:14 Pulse Ox 99 09/25/24 12:14 Oxygen Delivery Method Room Air 09/25/24 12:14 BMI result Body Mass Index 34.4 Tobacco/Smoking Status: Tobacco use Status Tobacco use date assessed 02/03/24 09/25/24 12:02 Patient Tobacco Use Status Never used Tobacco 09/25/24 12:02 e-Cigarette/Vaping Use Never Used 09/25/24 12:02 PHQ-9: PHQ-9 Score PHQ-9: Total score 1 09/25/24 12:22 Thrive Assessment: Date of Thrive Assessment Date Thrive assessed 09/22/24 09/25/24 12:02 Currently or been in a relationship where the following occur: No concerns reported Coding Level of Care Code Est Pt Level 4 (28373) Diagnoses Uncontrolled type 2 diabetes mellitus with hyperglycemia, with long-term current use of insulin E11.65; Z79.4 High cholesterol E78.00 Hypertension due to endocrine disorder I15.2 Hypertension type: secondary to endocrine disorders Microalbuminuria R80.9 Other iron deficiency anemia D50.8 Iron deficiency anemia type: other iron deficiency Assessment & Plan Assessment & Plan (1) Uncontrolled type 2 diabetes mellitus with hyperglycemia, with long-term current use of insulin: Code(s): E11.65 - Type 2 diabetes mellitus with hyperglycemia; Z79.4 - director of regulatory affairs (current) use of insulin Category: Medical Plan: A1c?today?7.8%.??Slowly?improving?control.??Goal?is?less?than?7.0% Will?increase?Jardiance?to?25?mg?daily Continue?Trulicity?and?metformin Work?on?diabetic?diet?and?add?exercise (2) High cholesterol: Code(s): E78.00 - Pure hypercholesterolemia, unspecified Category: Medical Plan: LDL?cholesterol?was?high?at?last?check?in?June.??Her?simvastatin?was?increase d?from?20?mg?to?40?mg. Tolerating?this?medication Recheck?lipids?prior?to?next?visit LDL?Goal?is?less?70 (3) Hypertension: Code(s): I10 - Essential (primary) hypertension Category: Medical Qualifiers: Hypertension type: secondary to endocrine disorders Qualified Code(s): I15.2 - Hypertension secondary to endocrine disorders Plan: Blood?pressure?is?generally?controlled.??Little?high?today.??Goal?is?le ss?than?140/90 Continue?her?medications Encouraged?exercise?weight?loss If?blood?pressures?remain?elevated?will?consider?increasing?lisinopril (4) Microalbuminuria: Code(s): R80.9 - Proteinuria, unspecified Category: Medical Plan: Microalbumin?is? high.??Blood?pressure?is?mildly?elevated?today?and?her?blood?sugars?are?high Simvastatin?recently?increased If?microalbumin?still?elevated?at?next?visit?will?consider?increasing?lisinopril ?or?adjusting?regimens?to?improved?blood?pressure. I?have?also?increased?her?Jardiance?today?to?improve?blood?sugar?control (5) Iron deficiency anemia: Code(s): D50.9 - Iron deficiency anemia, unspecified Category: Medical Qualifiers: Iron deficiency anemia type: other iron deficiency Qualified Code(s): D50.8 - Other iron deficiency anemias Plan: Followed?by??[facility] are?okay?at?last?check Medications: Discontinued needle (disp) 30 gauge (Monoject Hypodermic [place]) Discontinued Reason: Doctor's Order As directed 1,000 ea 0RF insulin syringe-needle U-100 (Monoject Insulin Safety Syringe) Discontinued Reason: Doctor's Order TEST 3-4 TIMES DAILY 100 ea 3RF pen needle, diabetic (BD Ultra-Fine Micro Pen Needle) Discontinued Reason: Doctor's Order Tst 4 times a day, As directed. 90 days 400 ea 3RF E08.319 - 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 due to underlying condition with unspecified diabetic retinopathy without macular edema pen needle, diabetic (Novofine 32) Discontinued Reason: Doctor's Order 4 times a day As directed, 90 days 400 ea 3RF E08.319 - 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 due to underlying condition with unspecified diabetic retinopathy without macular edema
[2024-09-25 12:14] VITALS: BP 150/70; PULSE 96; RESP 16; O2SAT 99; BMI 34.4
== END 2024-09-25 12:38 | disposition home or self-care (01) ==
PROVIDERS: PCP Family Medicine; Visit Provider Family Medicine
DX: E11.65 Type 2 diabetes mellitus with hyperglycemia (principal); Z79.4 Long term (current) use of insulin; E78.00 Pure hypercholesterolemia, unspecified; I15.2 Hypertension secondary to endocrine disorders; R80.9 Proteinuria, unspecified; D50.8 Other iron deficiency anemias

== ENCOUNTER → 2024-09-25 11:53 | Outpatient (BNVA) | payer OTHER, SELFPAY | PROVIDERS: PCP Family Medicine; Visit Provider Family Medicine | DX: E11.65 Type 2 diabetes mellitus with hyperglycemia (principal); E78.5 Hyperlipidemia, unspecified; E78.00 Pure hypercholesterolemia, unspecified; E08.319 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 due to underlying condition with unspecified diabetic retinopathy without macular edema; I15.2 Hypertension secondary to endocrine disorders; R80.9 Proteinuria, unspecified; D50.8 Other iron deficiency anemias; Z79.4 Long term (current) use of insulin | CPT/HCPCS: 83036; 99212 ==

== ENCOUNTER 2024-11-22 10:38 | Outpatient (REF) | payer OTHER, SELFPAY ==
[2024-11-22 12:34] LABS: Anion Gap 13 (12-20); Blood Urea Nitrogen 17 mg/dL (9-16); Calcium 9.8 mg/dL (8.4-10.2); Carbon Dioxide 24 mmol/L (22-29); Chloride 105 mmol/L (96-108); Estimated Glomerular Filt Rate > 60; Glucose Random 128 mg/dL (60-115); Potassium 4.5 mmol/L (3.3-5.1); Sodium 137 mmol/L (135-145)
== END 2024-11-22 10:39 | disposition home or self-care (01) ==
LOC: HO.LAB 10:38
PROVIDERS: PCP Family Medicine; Visit Provider Internal Medicine Cardiovascular Disease
DX: I48.0 Paroxysmal atrial fibrillation (principal); Z79.01 Long term (current) use of anticoagulants
CPT/HCPCS: 36415; 80048; 93005; 99212

== ENCOUNTER 2024-11-22 10:38 | Outpatient (AMB) | payer OTHER, SELFPAY ==
[2024-11-22 10:51] VITALS: BP 120/80; PULSE 89; BMI 33.5
--- NOTE | 2024-11-22 10:51 | MHC.OFFVIS ---
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 Medication List - Last Reconciled 11/22/24 by Juan Villeda MD apremilast (Otezla) 30 mg PO BID blood-glucose sensor (FreeStyle Georgette 3 Sensor device) As directed change every 14 days cetirizine 10 mg PO DAILY clobetasol 0.05% 1 appl topical BID dulaglutide 1.5 mg (0.5 mL) subcut QWEEK 28 days empagliflozin 25 mg PO DAILY 90 days ferrous sulfate 325 mg PO DAILY lisinopril 20 mg PO DAILY 90 days metformin 1,000 mg PO BID 90 days omeprazole 20 mg PO DAILY 90 days rivaroxaban (Xarelto) 20 mg PO QPM 90 days simvastatin 40 mg PO BEDTIME HPI Comments Details: Pooja comes for follow-up. She has been doing very well from cardiac perspective. She has no recurrent episodes of atrial fibrillation. Denies any prolonged palpitation, irregular heartbeat, fluttering. Denies any lightheadedness, syncope. No bleeding issues or neurologic events. She says she has been losing weight and doing regular activity without any exertional symptoms of chest pain or shortness of breath. No orthopnea, PND, leg edema. Diabetes is better controlled. [facility] Medical History Anemia Adhesive capsulitis of both shoulders Vertigo High cholesterol Diabetes Surgical History No history of previous surgery Family History Mother Diabetes Family history of thyroid problem Father No known health problems Maternal Grandmother Diabetes Paternal Grandmother Diabetes Maternal Grandfather Substance abuse in family Brother Substance abuse in family Mental health disorder Paternal Uncle Mental health disorder Social History Household Members: Significant Other Household Members Other:: boyfriend Housing: Apartment Patient Tobacco Use Status: Never used Tobacco e-Cigarette/Vaping Use: Never Used Second Hand Smoke Exposure: No service: No Current occupational status: employed Current occupation: [employer] Current occupational exposures/hazards: No Cognitive needs: No Hearing needs: No Vision needs: No Female Reproductive History Menstrual Age of Menarche: 12 Review of Systems Const Denies chills, Denies fatigue, Denies fever(s), Denies frequent falls, Denies weakness, Denies weight gain and Denies weight loss ENT Denies dizziness Card Denies chest pain, Denies leg edema, Denies lightheadedness, Denies palpitations, Denies dyspnea, Denies dyspnea on exertion, Denies orthopnea and Denies other (loss of consciousness) Resp Denies cough, Denies dyspnea and Denies dyspnea on exertion GI Denies hematochezia and Denies change in stool character Musc Denies abnormal gait, Denies muscle weakness, Denies numbness, Denies radiating pain into limb and Denies tingling Neuro Denies abnormal gait, Denies dizziness, Denies frequent falls, Denies numbness, Denies tingling and Denies weakness Endo Denies fatigue and Denies palpitations Physical Exam Vital Signs: Last Vital Signs Pulse 89 11/22/24 10:51 BP 120/80 11/22/24 10:51 BMI result Body Mass Index 33.5 Const General: cooperative, comfortable, no acute distress, alert, awake, Physically active and well groomed Nutritional Appearance: obese Orientation/consciousness: patient oriented x3 Neck Neck: Yes trachea midline, Yes supple and Yes no JVD Resp Effort & Inspection: normal respiratory effort Auscultation: clear to auscultation bilaterally Cardio Jugular venous distension: no JVD Palpation: normal PMI Rate: tachycardic Rhythm: regular rhythm Heart sounds: S1 normal heart sound present, S2 normal heart sound present, no click, no gallops and no murmurs GI Auscultation: normal bowel sounds Skin General skin exam: no rashes or lesions noted Neuro General: patient oriented x3 and no focal motor deficits Extrem General: Yes no clubbing, cyanosis or edema Office Procedures EKG Details: EKG shows normal sinus rhythm with low-voltage QRS [id number]-[id number], Complete Assessment & Plan Assessment & Plan (1) Paroxysmal atrial fibrillation: Comment: with secondary hypercoaguable state on xarelto managed by Cards Code(s): I48.0 - Paroxysmal atrial fibrillation Category: Medical Plan: Highly symptomatic paroxysmal atrial fibrillation which has remained suppressed. Patient was done well with rhythm control approach will continue pursue rhythm control approach. Avoidance of stimulants was discussed. Advised to call me with any new symptoms. Currently will not change any therapy and has no indication for antiarrhythmic drug therapy. CHADSVASc score of 4. Continue full oral anticoagulation, currently on Xarelto 20 mg daily. Semi annual renal function test is recommended. She is encouraged to continue to participate in physical activity as well as way aggressive weight loss program. Blood pressure is well optimized. In terms of vascular risk factor modification currently on full oral anticoagulation therefore avoid aspirin therapy. High-intensity statin therapy should be considered with goal LDL less than 70 mg/dL. Will follow up in the clinic in 1 year's time, sooner p.r.n.. Thank you for allowing me to partake in her care Orders: Orders Basic Metabolic Panel Today I48.0 - Paroxysmal atrial fibrillation CA echo transthoracic complete Today I48.0 - Paroxysmal atrial fibrillation Coding Level of Care Code Est Pt Level 4 (57404) Complex EM visit Add On G2211 Diagnoses Paroxysmal atrial fibrillation I48.0 CPT Codes EKG - CPT: 50423-[id number], Complete ([id number])
--- OUTSIDE RECORDS SUMMARY | 2024-11-22 13:31 | XMS_ITS ---
Author Organization [facility] Address [address] [place] [phone] Care Team Providers Care Art Librarian Name Role Phone Etienne Monge Primary Care Provider Unavailab Michele Casey Unavailable [phone] Lit Chen Unavailable Unavailable REASON FOR VISIT prep scripts Medications Medication SIG (Take, Route, Frequency, Duration) Notes Start Date End Date Status Dulcolax (colon prep) 5 MG Take 2 tablet s 2 days before the colonoscopy, and then take at 3:00 p.m and 7:00p.m. Orally Two tablets two days before the colonoscopy, and then two tablets twice a day for one day for 2 days 01/26/2024 Active MiraLax (colon prep) 17 GM/SCOOP 1 238Gm bottle mixed with Gatorade or Crystal Light Orally begin at 5:00 p.m. the day before the procedure for 1 day 01/26/2024 Active Encounters Encounter Location Date Provider Diagnosis [facility] [address] [place] [phone] 01/18/2024 Michele Goldman Plan Of Treatment Medication Medication Name Sig Start Date Stop Date Notes Dulcolax (colon prep) 5 MG Take 2 tablet s 2 days before the colonoscopy, and then take at 3:00 p.m and 7:00p.m. Orally Two tablets two days before the colonoscopy, and then two tablets twice a day for one day for 2 days 01/26/2024 MiraLax (colon prep) 17 GM/SCOOP 1 238Gm bottle mixed with Gatorade or Crystal Light Orally begin at 5:00 p.m. the day before the procedure for 1 day 01/26/2024 Progress Notes * MARTHA COHENDOB: 9 (43 yo F)Acc No.[id number]:01/18/2024 Patient:?MARTHA COHEN :1980???Age:43 Y???Sex:Female Address:[address] [place] [address] * Refills? Start MiraLax (colon prep) Powder, 17 GM/SCOOP, Orally, 1, 1 238Gm bottle mixed with Gatorade or Crystal Light, begin at 5:00 p.m. the day before the procedure, 1 day, Refills=0 Start Dulcolax (colon prep) Tablet Delayed Release, 5 MG, Orally, 6, Take 2 tablets 2 days before the colonoscopy, and then take at 3:00 p.m and 7:00p.m., Two tablets two days before the colonoscopy, and then two tablets twice a day for one day, 2 days, Refills=0 * true * Date:? Generated for Juan Jose polo/Jameel/Almassmitting on:?11/22/2024 01:30 PM EDT
--- OUTSIDE RECORDS SUMMARY | 2024-11-22 13:31 | XMS_ITS | Patient Health Record ---
Author Organization [facility] Address [address] [place] [address] Care Team Providers Care Bolting Machine Operator Name Role Phone Etienne Monge Primary Care Provider Unavailab Michele Casey Unavailable [phone] Lit Chen Unavailable Unavailable Allergies Allergen (clinical drug ingredient) Drug/Non Drug Allergy documented on EMR Reaction Allergy Type Onset Date Status Substance with sulfonamide structure and antibacterial mechanism of action (substance) Sulfa Antibiotics Unknown Drug Allergy Active Results Component Value Reference Range Notes Ur Preg Test Reviewed date:05/07/2024 11:27:00 PM Interpretation: Performing Lab:[facility], [address] [place] [phone] Notes/Report: Urine NEGATIVE NEGATIVE This test was developed to detect early . False negative results may occur after the 5th - 7th week of when using this test method. If clinically indicated, consider a serum hCG. Pathology Reviewed date:05/19/2024 01:45:39 PM Interpretation: Performing Lab:[facility], [address] [place] [phone] Notes/Report: ---- Name: Martha Cohen Age/Sex: 43/F : 1980 Unit#: [id number] Attend Dr: Michele Goldman MD Re05/07/24 Status : [facility] Location: [facility] Disch: ---- SPEC : [id number] RECD : 05/07/24-151 STATUS: JASON DIXON NUM: [id number] LIAM: 05/07/24-1323 [facility] DR: Michele Goldman MD ENTERED: 05/07/24- SP TYPE: Surgical OTHR DR: Etienne Monge MD ORDERED: HE Stain/6, Gross Micro L4/2, Special st. 2/2, AB/PAS/2 Diagnosis A. Duodenum, descend ing, biopsy: Duodenal mucosa within normal limits; negative for celiac disease. B. EG junction, 35 c m, biopsy: - Cardiac-type mucos a with moderate chronic active inflammation; no intestinal metaplasia seen. - Squamous mucosa wi thin normal limits. Clinical History Pre-Op Dx: Anemia, reflux, screening Post-Op Dx: Hiatal hernia, hemorrhoids Microscopic Description A, B. Microscopic sections examined. No metaplastic changes are seen, supported by AB/PAS stains (A and B) Material Received A. Descending duoden um R/O celiac disease B. EG junction @ 35 Gross Description Received in 2 parts. A. Received in forma jose labeled ?descending duodenum R/O celiac disease? are 4 fragments of ball-white soft tissu e measuring 0.3-0.4 cm in greatest dimension which are wrapped in lens paper and entirely submitted for microscopic examination, 4 pieces in cassette A. B. Received in forma jose labeled ?EG junction at 35? are 2 fragments of ball-white soft tissue measuring 0.2 and 0. 3 cm in greatest dimension which are wrapped in lens paper and entirely submitted for microscopic examination, 2 pieces in cassette B. [facility] Special studies orde red and performed: AB/PAS stains on A and B CONTINUED ON NEXT PAGE ---- Name: Martha Cohen Age/Sex: 43/F : 1980 Unit#: [id number] Attend Dr: Michele Goldman MD Re05/07/24 Status : [facility] Location: [facility] Disch: ---- SPEC : [id number] RECD : 05/07/24-1514 STATUS: JASON DIXON NUM: [id number] LIAM: 05/07/[address] [facility] [address]: Michele Goldman MD ENTERED: 05/07/24- SP TYPE: Surgical OTHR DR: Etienne Monge MD ORDERED: ART Stain/6, Gross Micro L4/2, Special st. 2/2, AB/PAS/2 Copies To: Etienne Monge MD [facility] Family Medicine [address] [place] [phone] Michele Goldman MD [address] [place] [address] ---- Signed (signature on file) Etienne Ellis MD 05/10/24 1537 ---- END OF REPORT Reason For Referral No Information Medications Medication SIG (Take, Route, Frequency, Duration) Notes Start Date End Date Status Ozempic (1 MG/DOSE) 4 MG/3ML Subcutaneous for 28 Active Omeprazole 20 MG Oral for 90 A ctive Dulcolax (colon prep) 5 MG Take 2 tablet s 2 days before the colonoscopy, and then take at 3:00 p.m and 7:00p.m. Orally Two tablets two days before the colonoscopy, and then two tablets twice a day for one day for 2 days 01/26/2024 Active Otezla 30 MG Oral for 30 Activ e MiraLax (colon prep) 17 GM/SCOOP 1 238Gm bottle mixed with Gatorade or Crystal Light Orally begin at 5:00 p.m. the day before the procedure for 1 day 01/26/2024 Active Jardiance 10 MG Oral for 30 Ac tive metFORMIN HCl 1000 MG TAKE 1 TABLET BY M OUTH TWICE A DAY Oral for 90 Active Ferrous Sulfate 325 (65 Fe) MG TAKE 1 TABLET BY MOUTH EVERY DAY Oral for 30 Active Cetirizine HCl 10 MG TAKE 1 TABLET BY MO UTH DAILY FOR 30 DAYS Oral for 90 Active Simvastatin 20 MG Oral for 90 Active FreeStyle Georgette 3 Sensor - for 28 Active Lisinopril 20 MG Oral for 67 A ctive Xarelto 20 MG Oral for 90 Acti ve Immunizations Vaccine Route Administration Date Status Comme nts Influenza Unknown 01/18/2024 Refused Social History Tobacco Use: Social History Observation Description Date Details (start date - stop date) Never Smoker NA - NA Tobacco Use/Smoking Question Answer Notes Patient is a nonsmoker Alcohol Screen Question Answer Notes Did you have a drink containing alcohol in the p ast year? No Points 0 Interpretation Negative Section Notes: Nonsmoker; no sig alcohol Problems Problem Type SNOMED Code ICD Code Onset Dates Problem Status W/U Status Risk Notes Problem Colon cancer screening (659771816) Colon cancer screening (Z12.11) Active confirmed Problem Gastroesophageal reflux disease without esophagitis (045309788) Gastroesophageal reflux disease without esophagitis (K21.9) Active confirmed Problem Anemia (459415871) Anemia (D64.9) Active confir med Problem Gastroesophageal reflux disease (099238503) Chronic GERD (K21.9) Active confirmed Vital Signs Temperature 97.7 degrees Fahrenheit 01/18/2024 Blood pressure diastolic 00 mm Hg 01/18/2024 Height 5 ft 2 in in 01/18/2024 Blood pressure systolic 000 mm Hg 01/18/2024 Weight 179 lb 2 oz lbs 01/18/2024 BMI 32.76 kg/m2 01/18/2024 Encounters Encounter Location Date Provider Diagnosis [facility] Outpatient [address] [place] [id number] 05/07/2024 Michele Goldman Colon cancer screeni ng Z12.11 ; Other hemorrhoids K64.8 ; Gastroesophageal reflux disease without esophagitis K21.9 and Hiatal hernia K44.9 [facility] [address] [place] [phone] 01/18/2024 Michele Goldman Colon cancer screeni ng Z12.11 ; Chronic GERD K21.9 and Anemia D64.9 [facility] [address] [place] [phone] 01/18/2024 Michele Goldman Assessments Encounter Date Diagnosis (ICD Code) Assessment Notes Treatment Notes Treatment Clinical Notes Section Notes 05/07/2024 Colon cancer screening (ICD-10 - Z12.11) 05/07/2024 Other hemorrhoids (ICD-10 - K64.8) 01/18/2024 Colon cancer screening (ICD-10 - Z12.11) STOP IRON FOR 1 WEEK BEFORE THE PROCEDURES DO NOT TAKE OZEMPIC FOR AT LEAST ONE WEEK BEFORE THE PROCEDURES DO NOT TAKE THE JARDIANCE FOR THREE DAYS BEFORE THE PROCEDURES DO NOT TAKE THE ELIQUIS FOR THREE DAYS BEFORE THE PROCEDURES DO NOT TAKE THE METFORMIN THE NIGHT BEFORE NOR ON THE MORNING OF THE PROCEDURES Overall, Martha appears well. She does not appear to be having any worrisome GI complaints at the present time. Her anemia seems to be quite stable and I doubt this is related to any type of GI blood loss. I did recommend a colonoscopy primarily for screening purposes. We did review the rationale for that in regard to colorectal cancer prevention. I also recommended an upper endoscopy the same day for evaluation of her chronic reflux, as well as to obtain duodenal biopsies to rule out celiac disease as being a factor in her irregular bowel movements and anemia. Full consent was obtained from her for both procedures, including risks of bleeding and perforation. I did give her the below list of instructions regarding adjustment of all her medications for the procedure. The procedure will be done with monitored anesthesia care.. Martha was comfortable with this plan. Thank you again for allowing me to participate in Martha's care. I shall continue to keep you advised of her progress. 01/18/2024 Chronic GERD (ICD-10 - K21.9) Overall, Martha appears well. She does not appear to be having any worrisome GI complaints at the present time. Her anemia seems to be quite stable and I doubt this is related to any type of GI blood loss. I did recommend a colonoscopy primarily for screening purposes. We did review the rationale for that in regard to colorectal cancer prevention. I also recommended an upper endoscopy the same day for evaluation of her chronic reflux, as well as to obtain duodenal biopsies to rule out celiac disease as being a factor in her irregular bowel movements and anemia. Full consent was obtained from her for both procedures, including risks of bleeding and perforation. I did give her the below list of instructions regarding adjustment of all her medications for the procedure. The procedure will be done with monitored anesthesia care.. Martha was comfortable with this plan. Thank you again for allowing me to participate in Martha's care. I shall continue to keep you advised of her progress. 05/07/2024 Gastroesophageal reflux disease without esophagitis (ICD-10 - K21.9) 01/18/2024 Anemia (ICD-10 - D64.9) Overall, Martha appears well. She does not appear to be having any worrisome GI complaints at the present time. Her anemia seems to be quite stable and I doubt this is related to any type of GI blood loss. I did recommend a colonoscopy primarily for screening purposes. We did review the rationale for that in regard to colorectal cancer prevention. I also recommended an upper endoscopy the same day for evaluation of her chronic reflux, as well as to obtain duodenal biopsies to rule out celiac disease as being a factor in her irregular bowel movements and anemia. Full consent was obtained from her for both procedures, including risks of bleeding and perforation. I did give her the below list of instructions regarding adjustment of all her medications for the procedure. The procedure will be done with monitored anesthesia care.. Martha was comfortable with this plan. Thank you again for allowing me to participate in Martha's care. I shall continue to keep you advised of her progress. 05/07/2024 Hiatal hernia (ICD-10 - K44.9) Plan Of Treatment Future Test Test Name Order Date UPPER GI ENDOSCOPY 01/18/2024 COLONOSCOPY 01/18/2024 Insurance Providers Payer Name Payer Address Payer Phone Subscriber Number Group Number Insured Name Patient Relationship to Insured Coverage Start Date Coverage End Date [facility] [address] [address] [place], [place] [id number] MARTHA COHEN Self - patient is the insured Medical (General) History Medical History History ICD Code 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 [facility] [place] Psoriasis Denies [place],CVA,renal disease Seasonal asthma GERD HTN Surgical History Surgery Date(Month/Year) Hospitalization History Reason Date(Month/Year)
--- OUTSIDE RECORDS SUMMARY | 2024-11-22 13:31 | XMS_ITS ---
Author Organization [facility] Address [address] [place] [phone] Care Team Providers Care Occupational Therapy Manager Name Role Phone Etienne Monge Primary Care Provider Unavailab Michele Casey Unavailable [phone] Lit Chen Unavailable Unavailable Allergies Allergen (clinical drug ingredient) Drug/Non Drug Allergy documented on EMR Reaction Allergy Type Onset Date Status Substance with sulfonamide structure and antibacterial mechanism of action (substance) Sulfa Antibiotics Unknown Drug Allergy Active REASON FOR VISIT Patient presents today for ANEMIA, COLON SCREENING Medications Medication SIG (Take, Route, Frequency, Duration) Notes Start Date End Date Status metFORMIN HCl 1000 MG TAKE 1 TABLET BY M OUTH TWICE A DAY Oral for 90 Active Ferrous Sulfate 325 (65 Fe) MG TAKE 1 TABLET BY MOUTH EVERY DAY Oral for 30 Active Cetirizine HCl 10 MG TAKE 1 TABLET BY MO UTH DAILY FOR 30 DAYS Oral for 90 Active Lisinopril 20 MG Oral for 67 A ctive Xarelto 20 MG Oral for 90 Acti ve FreeStyle Georgette 3 Sensor - for 28 Active Ozempic (1 MG/DOSE) 4 MG/3ML Subcutaneous for 28 Active Omeprazole 20 MG Oral for 90 A ctive Otezla 30 MG Oral for 30 Activ e Jardiance 10 MG Oral for 30 Ac tive Simvastatin 20 MG Oral for 90 Active Immunizations Vaccine Route Administration Date Status Comme [...] Status Risk Notes Problem Colon cancer screening (053396983) Colon cancer screening (Z12.11) Active confirmed Problem Gastroesophageal reflux disease (868374351) Chronic GERD (K21.9) Active confirmed Problem Anemia (816777902) Anemia (D64.9) Active confirmed Vital Signs Temperature 97.7 degrees Fahrenheit 01/18/20 24 Blood pressure systolic 000 mm Hg 01/18/20 24 Blood pressure diastolic 00 mm Hg 024 Height 5 ft 2 in in 01/18/2024 Weight 179 lb 2 oz lbs 01/18/2024 BMI 32.76 kg/m2 01/18/2024 Encounters Encounter Location Date Provider Diagnosis [facility] [address] [place] [address] 01/18/2024 Michele Goldman Colon cancer screening Z12.11 ; Chronic GERD K21.9 and Anemia D64.9 Assessments Encounter Date Diagnosis (ICD Code) Assessment Notes Treatment Notes Treatment Clinical Notes Section Notes 01/18/2024 Colon cancer screening (ICD-10 - Z12.11) [...] keep you advised of her progress. 01/18/2024 Anemia (ICD-10 - D64.9) Overall, Martha [...] to keep you advised of her progress. Plan Of Treatment Treatment Notes Assessment Notes Colon cancer screening STOP IRON FOR 1 WEEK BEFORE THE PROCEDURES DO NOT TAKE OZEMPIC FOR AT LEAST ONE WEEK BEFORE THE PROCEDURES DO NOT TAKE THE JARDIANCE FOR THREE DAYS BEFORE THE PROCEDURES DO NOT TAKE THE ELIQUIS FOR THREE DAYS BEFORE THE PROCEDURES DO NOT TAKE THE METFORMIN THE NIGHT BEFORE NOR ON THE MORNING OF THE PROCEDURES Future Test Test Name Order Date UPPER GI ENDOSCOPY 01/18/2024 COLONOSCOPY 01/18/2024 Next Appt Details Follow Up: prn, Reason: Progress Notes * MARTHA COHENDOB: 9 (43 yo F)Acc No.[id number]:01/18/2024 Progress Notes Patient:MARTHA CRAWLEY Provider:?Michele Goldman MD :1980???Age:43 Y???Sex:Female D ate:01/18/2024 Address:[address] [place], [place] [id number] Pcp:Etienne Monge Subjective: * Chief Complaints: * ???Patient presents today fo r ANEMIA, COLON SCREENING * HPI: ???incontinence:? I saw Martha in consultation today in regard to further evaluation of her gastroesophageal reflux, need for colorectal cancer screening, and history of iron deficiency anemia. ?As you know, Gloria is a 43-year-old female who describes history of reflux for which she is presently on omeprazole. She attributes her reflux symptoms to her diabetes medication. She does report that the omeprazole works well for her. She denies any significant heartburn at the present time, dysphagia, anorexia, nausea, no vomiting. She has never had an upper endoscopy. ?She reports her bowel movements have been chronically irregular ranging from some loose stool to upwards of 2 or 3 days a time without a bowel movement. She attributes some of this to her medication such as her iron, diabetes medication, and her psoriasis medication. She denies any hematochezia or melena. She denies any known family history of colon cancer in first-degree relatives. She does describe a maternal great grandfather having had colon cancer and a maternal grandmother having had colon polyps. ?She has had a reported anemia, although her most hemoglobin was 12.3 in November. She does have an iron deficiency with labs in September showing an iron of 21, iron saturation of 7%, and ferritin of only 15. Again, she denies any signs of GI bleeding and reports that her menses is normal and not particularly heavy. She does see Dr. Chen for the anemia. She denies any known family history of celiac disease or inflammatory bowel disease. She is on chronic Xarelto but denies using any chronic NSAIDs or aspirin. * ROS:?General/Constitutional:?Change in appetite?denies.?Chills?denies.?Fatigue?denies.?Ophthalmologic:?Comments?all negative.?ENT:?Comments?all negative.?Respiratory:?hemoptysis?denies.?Cough?denies.?Cardiovascular:?Chest pain?denies.?Orthopnea?denies.?Gastrointestinal:?Comments?See HPI for details.?Genitourinary:?Hematuria?denies.?Dysuria?denies.?Musculoskeletal:?Painful joints?denies.?Weakness?denies.?Skin:?Itching?denies.?Rash?denies.?Neurologic:?Headache?denies.?Seizures?denies.?Psychiatric:?Comments?all negative.? * Medical History:? * Surgical History:?Denies Pas t Surgical History * Hospitalization/Major Diagno stic Procedure:?No Hospitalization History. * Family History:?Father: eliana garcia?Mother: alive, diagnosed with Diabetes.?Maternal Grand Mother: Colon polyps, diagnosed with Colon polyps.? Maternal Great-grandfather had colon cancer. * Social History:?Tobacco Use:?Tobacco Use/Smoking?Patient is a?nonsmoker.?Drugs/Alcohol:?Alcohol Screen?Did you have a drink containing alcohol in the past year??No,?Points?0,?Interpretation?Negative.?Miscellaneous:?Marital status: single. 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 ???Nonsmoker; no sig alcohol. * Medications:?TakingSimvastat in 20 MG Tablet Oral FreeStyle Georgette 3 Sensor - Miscellaneous Otezla 30 MG Tablet Oral Jardiance 10 MG Tablet Oral Ozempic (1 MG/DOSE) 4 MG/3ML Solution Pen-injector Subcutaneous Omeprazole 20 MG Capsule Delayed Release Oral Cetirizine HCl 10 MG Tablet TAKE 1 TABLET BY MOUTH DAILY FOR 30 DAYS Oral metFORMIN HCl 1000 MG Tablet TAKE 1 TABLET BY MOUTH TWICE A DAY Oral Ferrous Sulfate 325 (65 Fe) MG Tablet TAKE 1 TABLET BY MOUTH EVERY DAY Oral Lisinopril 20 MG Tablet Oral Xarelto 20 MG Tablet Oral Medication List reviewed and reconciled with the patientTaking Simvastatin 20 MG Tablet Oral Taking FreeStyle Georgette 3 Sensor - Miscellaneous Taking Otezla 30 MG Tablet Oral Taking Jardiance 10 MG Tablet Oral Taking Ozempic (1 MG/DOSE) 4 MG/3ML Solution Pen-injector Subcutaneous Taking Omeprazole 20 MG Capsule Delayed Release Oral Taking Cetirizine HCl 10 MG Tablet TAKE 1 TABLET BY MOUTH DAILY FOR 30 DAYS Oral Taking metFORMIN HCl 1000 MG Tablet TAKE 1 TABLET BY MOUTH TWICE A DAY Oral Taking Ferrous Sulfate 325 (65 Fe) MG Tablet TAKE 1 TABLET BY MOUTH EVERY DAY Oral Taking Lisinopril 20 MG Tablet Oral Taking Xarelto 20 MG Tablet Oral Medication List reviewed and reconciled with the patient * Allergies:?Sulfa Antibiotics yes[Allergies Verified] Objective: * Vitals:?Wt: 179 lb 2 oz, Ht: 5 ft 2 in, BMI:32.76 Index, BP: 000/00 mm Hg, Temp: 97.7. * Examination: ???General Examination: ?GENERAL APPEARANCE:?pleasant, well nourished, well developed, in no acute distress.?EYES:?sclera non-icteric.?ORAL CAVITY:?mucosa moist.?NECK/THYROID:?no cervical lymphadenopathy, neck supple.?SKIN:?nonjaundiced, no spider angiomata.?HEART:?S1, S2 normal.?LUNGS:?clear to auscultation bilaterally.?ABDOMEN:?normal bowel sounds, no guarding or rigidity, no guarding or rigidity, no masses palpable, soft, nontender, nondistended.?EXTREMITIES:?no edema.?NEUROLOGIC:?alert and oriented.? Assessment: * Assessment: 1.?Chronic GERD - K21.9 (Chanel crenshaw)?2.?Colon cancer screening - Z12.11?3.?Anemia - D64.9? Overall, Martha appears well . She does not appear to be having [...] to keep you advised of her progress. Plan: * Treatment: 2.?Colon cancer screening?Procedure: COLONOSCOPY (Ordered for 01/18/2024)* with MAC; Take 2 extra Dulco lax two days before the procedures Notes: STOP IRON FOR 1 WEEK BEFORE THE PROCEDURES DO NOT TAKE OZEMPIC FOR AT LEAST ONE WEEK BEFORE THE PROCEDURES DO NOT TAKE THE JARDIANCE FOR THREE DAYS BEFORE THE PROCEDURES DO NOT TAKE THE ELIQUIS FOR THREE DAYS BEFORE THE PROCEDURES DO NOT TAKE THE METFORMIN THE NIGHT BEFORE NOR ON THE MORNING OF THE PROCEDURES?? * Immunizations:? Influenza (Not administered - Refused: Patient decision) * Procedure Codes:?3017F COLOR ECTAL CA SCREEN DOC [id number] TOBACCO [id number] BP SCR NOT PRFRM REC REASON NOS * Preventive Medicine:? ??Counseling:?Care goal follow-up plan:?Above Normal BMI Follow-up?Giving encouragement to exercise,?BMI management provided?Yes.? * Follow Up:?prn * * Sign off status: Completed true * Provider:?Michele Goldman MD Date:? 024 Generated for Juan Jose polo/Jameel/Stephanie on:?11/22/2024 01:31 PM EDT History and Physical Notes * HPI (History of Present Illness) Category Sub-Category Detail Notes Category Not es incontinence I saw Martha in consultation today in regard to further evaluation of her gastroesophageal reflux, need for colorectal cancer screening, and history of iron deficiency anemia. As you know, Gloria is a 43-year-old female who describes history of reflux for which she is presently on omeprazole. She attributes her reflux symptoms to her diabetes medication. She does report that the omeprazole works well for her. She denies any significant heartburn at the present time, dysphagia, anorexia, nausea, no vomiting. She has never had an upper endoscopy. She reports her bowel movements have been chronically irregular ranging from some loose stool to upwards of 2 or 3 days a time without a bowel movement. She attributes some of this to her medication such as her iron, diabetes medication, and her psoriasis medication. She denies any hematochezia or melena. She denies any known family history of colon cancer in first-degree relatives. She does describe a maternal great grandfather having had colon cancer and a maternal grandmother having had colon polyps. She has had a reported anemia, although her most hemoglobin was 12.3 in November. She does have an iron deficiency with labs in September showing an iron of 21, iron saturation of 7%, and ferritin of only 15. Again, she denies any signs of GI bleeding and reports that her menses is normal and not particularly heavy. She does see Dr. Chen for the anemia. She denies any known family history of celiac disease or inflammatory bowel disease. She is on chronic Xarelto but denies using any chronic NSAIDs or aspirin. Examination Category Sub-Category Detail Notes Category Not es General Examination GENERAL APPEARANCE: pleasant , well nourished, well developed, in no acute distress HEAD: EYES: sclera non-icteric EARS: NOSE: THROAT: NECK/THYROID: no cervical lymphade nopathy, neck supple HEART: S1, S2 normal CHEST: LUNGS: clear to auscultatio n bilaterally ABDOMEN: normal bowel sounds, no guarding or rigidity, no guarding or rigidity, no masses palpable, soft, nontender, nondistended NEUROLOGIC: alert and oriented SKIN: nonjaundiced, no spi lashell angiomata EXTREMITIES: no edema PERIPHERAL PULSES: BACK: BREASTS: MUSCULOSKELETAL: MALE GENITOURINARY: LYMPH NODES: RECTAL EXAM: FEMALE GENITOURINARY: ORAL CAVITY: mucosa moist
--- OUTSIDE RECORDS SUMMARY | 2024-11-22 13:31 | XMS_ITS ---
Author Organization [facility] Address [address] [place] [address] Care Team Providers Care Theater Education Teacher Name Role Phone Etienne Monge Primary Care Provider Unavailab Michele Casey Unavailable [phone] Lit Chen Unavailable Unavailable Problems Problem Type SNOMED Code ICD Code Onset Dates Problem Status W/U Status Risk Notes Problem Gastroesophageal reflux disease without esophagitis (721811997) Gastroesophageal reflux disease without esophagitis (K21.9) Active confirmed Encounters Encounter Location Date Provider Diagnosis [facility] [place] [address], [place] [phone] 05/07/2024 Michele Goldman Colon cancer screeni ng [...] * MARTHA COHENDOB: 9 (44 yo F)Acc No.[id number]:05/07/2024 EGD and COL/MAC Patient:?MARTHA COHEN Provider:?Michele Goldman MD :1980???Age:43 Y???Sex:Female D ate:05/07/2024 Address:[address] [place] [address] Pcp:Etienne Monge Subjective: * Chief Complaints: * ??? * Medical History:? Objective: * Vitals:? Assessment: * Assessment: 1.?Colon cancer screening - Z12.11 (Primary)???2.?Other hemorrhoids - K64.8???3.?Gastroesophageal reflux disease without esophagitis - K21.9???4.?Hiatal hernia - K44.9??? Plan: * Treatment: * Procedure Codes:?88455 DIAGN OSTIC COLONOSCOPY, 45809 UPPER GI ENDOSCOPY, BIOPSY * * The named appointment provid er may or may not be the originator of this progress note, and it is not deemed complete until electronically signed by the appointment provider. Sign off status: Pending * Provider:?Michele Goldman MD Date:? 024 Generated for Juan Jose polo/Jameel/eTfletchersmitting on:?11/22/2024 01:31 PM EDT
== END 2024-11-22 11:37 | disposition home or self-care (01) ==
PROVIDERS: PCP Family Medicine; Visit Provider Internal Medicine Cardiovascular Disease
DX: I48.0 Paroxysmal atrial fibrillation (principal)
CPT/HCPCS: 93010; 99214; G2211

== ENCOUNTER → 2024-12-06 10:45 | Outpatient (REF) | payer OTHER, SELFPAY ==
--- NOTE | 2024-12-06 10:48 | CA_ITS ---
Transthoracic Echocardiogram Patient (Last, First, Middle): Pooja Brooks, Gender: Female Date of : 1980 Age: 44 Procedure Date: 12/06/2024 Procedure Type: Transthoracic Echocardiogram Location: OP Height: 157. cm Weight: 81.65 kg BSA: 1.82 m2 Heart Rate: 99 bpm BP: 142 / 60 mmHg Advertising Display Rotator: ARLENE Referring MD: Juan Villeda MD Certified Hand Therapist: Juan Villeda MD Symptoms: I48.0 - Paroxysmal atrial fibrillation Study Quality: Fair ECG Rhythm: Tachycardia Conclusions: - Essentially normal study Findings Left Ventricle Normal left ventricular size, thickness, and systolic function. The visually estimated ejection fraction is between 65-70%. Spectral Doppler is indicative of a normal filling pattern. Right Ventricle Normal right ventricular cavity size. Atria The left atrium is normal in size. Interatrial shunt cannot be excluded. The right atrium is normal in size. Aortic Valve The aortic valve structure and function is likely normal. There is no aortic valve stenosis. There is no aortic valve regurgitation. Mitral Valve Normal mitral valve structure and function. There is trace mitral valve regurgitation. There is no mitral valve stenosis. Pulmonic Valve The pulmonic valve was not well visualized. Tricuspid Valve Likely normal tricuspid valve structure and function. Tricuspid regurgitation envelope is inadequate for calculation of right ventricular systolic pressure. Normal right atrial pressure. Great Vessels The pulmonary artery was not well visualized. There is no dilatation of the ascending aorta measuring 2.80 cm. Venous The inferior vena cava is normal in size and collapses greater than 50% with inspiration. Pericardium/Pleural There is no evidence of pericardial effusion. Prior Study Comparison No prior study available for comparison. Measurements 2D Linear Measurements IVSd: 0.89 0.6-0.9/0.6-1.0 cm LVIDd: 3.84 3.9-5.3/4.2-5.9 cm LVIDd Index: 2.11 2.4-3.2/2.2-3.1 cm/m2 LVIDs: 2.35 2.0-3.6 cm LVPWd: 0.89 0.7-1.1 cm LA Diam: 3.40 2.7-3.8/3.0-4.0 cm LAIDs Index: 1.87 1.5-2.3 cm/m2 LV Mass: 125.13 67-162/88-224 g LV Mass Index: 68.75 43-95/49-115 g/m2 LVOT Diam: 2.00 3.0+(-)1.3 cm 2D Systolic Function EF 4C: 73.50 >55% EF 2C: 66.80 >55% EF BiP: 69.30 >55% Mitral Valve MV Pk E: 0.86 MV PK A: 0.73 MV Decel Time: 181.00 E/A: 1.20 E'Lateral: 10.30 E'Medial: 6.53 E/E' Med: 13.20 E/E' Lat: 8.40 PHT: 53.00 MVA PHT: 4.15 Decel Chaves: 4.75 Aortic Valve AoV Pk Ran: 1.16 AoV Mn Ran: 0.85 AoV VTI: 0.22 AoV Pk Grad: 5.00 Aov Mn Grad: 4.00 DELORIS Cont.VTI: 2.92 LVOT LVOT Pk Ran: 0.87 LVOT Mn Ran: 0.68 LVOT VTI: 0.21 LVOT Pk Grad: 3.00 LVOT Mn Grad: 2.00 LVOT Diam: 2.00 LVOT Area: 3.14 Diastolic Function MV Pk E: 0.86 MV Pk A: 0.73 E/A: 1.20 E'Medial: 6.53 E/E' Med: 13.20 E' Laterial: 10.30 E/E' Lat: 8.40 Right Ventricle TAPSE (mm): 23.00 TVS' Ran: 11.40 Tricuspid Valve RA Press: 3.00 Great Vessels Aorta Sinus of Valsalva: 2.90 2.0-3.5 cm Ao Asc: 2.80 2.1-3.4 cm Pulmonary Valve PV Pk Ran: 1.04 Peak PV Grad: 4.00 Updated in Other Vendor System with Status of Final Juan Villeda MD electronically signed on 12/07/2024 4:13:42 PM with status of Final
--- OUTSIDE RECORDS SUMMARY | 2024-12-06 14:16 | XMS_ITS | Patient Health Record ---
Author Organization [facility] Address [address] [place] [address] Care Team Providers Care Gasoline Attendant Name Role Phone Etienne Monge Primary Care Provider Unavailab Michele Casey Unavailable [phone] Lit Chen Unavailable Unavailable Allergies Allergen (clinical drug ingredient) Drug/Non Drug Allergy documented on EMR Reaction Allergy Type Onset Date Status Substance with sulfonamide structure and antibacterial mechanism of action (substance) Sulfa Antibiotics Unknown Drug Allergy Active Results Component Value Reference Range Notes Ur Preg Test Reviewed date:05/07/2024 11:27:00 PM Interpretation: Performing Lab:[facility], [address] [place] [phone] Notes/Report: Urine NEGATIVE NEGATIVE This test was developed to detect early . False negative results may occur after the 5th - 7th week of when using this test method. If clinically indicated, consider a serum hCG. Pathology Reviewed date:05/19/2024 01:45:39 PM Interpretation: Performing Lab:[facility], [address] [place] [phone] Notes/Report: ---- Name: Martha Cohen Age/Sex: 43/F : 1980 Unit#: [id number] Attend Dr: Michele Goldman MD Re05/07/24 Status : [facility] Location: [facility] Disch: ---- SPEC : [id number] RECD : 05/07/24-151 STATUS: JASON DIXON NUM: [id number] LIAM: 05/07/24-[address] [facility] [address]: Michele Goldman MD ENTERED: 05/07/24- [...] microscopic examination, 2 pieces in cassette [facility] Special studies orde red and performed: AB/PAS stains on A and B CONTINUED ON NEXT PAGE ---- Name: Martha Cohen Age/Sex: 43/F : 1980 Unit#: [id number] Attend Dr: Michele Goldman MD Re05/07/24 Status : [facility] Location: [facility] Disch: ---- SPEC : [id number] RECD : 05/07/24-1514 STATUS: JASON DIXON NUM: [id number] LIAM: 05/07/[address] [facility] [address]: Michele Goldman MD ENTERED: 05/07/24- SP TYPE: Surgical OTHR DR: Etienne Monge MD ORDERED: ART Stain/6, Gross Micro L4/2, Special st. 2/2, AB/PAS/2 Copies To: Etienne Monge MD [facility] Family Medicine [address] [place] [address] Michele Goldman MD [address] [place] [address] ---- Signed (signature on file) [...] Status Risk Notes Problem Colon cancer screening (128742518) Colon cancer screening (Z12.11) Active confirmed Problem Gastroesophageal reflux disease without esophagitis (682325398) Gastroesophageal reflux disease without esophagitis (K21.9) Active confirmed Problem Anemia (128833687) Anemia (D64.9) Active confir med Problem Gastroesophageal reflux disease (140866372) Chronic GERD (K21.9) Active confirmed Vital Signs Temperature 97.7 degrees Fahrenheit 01/18/2024 Blood pressure diastolic 00 mm Hg 01/18/2024 Height 5 ft 2 in in 01/18/2024 Blood pressure systolic 000 mm Hg 01/18/2024 Weight 179 lb 2 oz lbs 01/18/2024 BMI 32.76 kg/m2 01/18/2024 Encounters Encounter Location Date Provider Diagnosis [facility] Out[place] [address] [place] [phone] 05/07/2024 Michele Goldman Colon cancer screeni ng Z12.11 ; Other hemorrhoids K64.8 ; Gastroesophageal reflux disease without esophagitis K21.9 and Hiatal hernia K44.9 [facility] [address] [place] [phone] 01/18/2024 Michele Goldman Colon cancer screeni ng Z12.11 ; Chronic GERD K21.9 and Anemia D64.9 [facility] [address] [place] [phone] 01/18/2024 Michele Goldman Assessments Encounter Date Diagnosis [...] Insured Coverage Start Date Coverage End Date [facility] [address] [address] [place], [place] [id number] MARTHA COHEN Self - patient is the insured Medical (General) History Medical History History ICD Code 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 Bziq-nzgclsufv-So. Sheth Psoriasis Denies NH,CVA,renal disease Seasonal asthma GERD HTN Surgical History Surgery Date(Month/Year) Hospitalization History Reason Date(Month/Year)
--- OUTSIDE RECORDS SUMMARY | 2024-12-06 14:16 | XMS_ITS ---
Author Organization [facility] Address [address] [place] [address] Care Team Providers Care Whipped Topping Supervisor Name Role Phone Etienne Monge Primary Care Provider Unavailab Michele Casey Unavailable [phone] Lit Chen Unavailable Unavailable REASON FOR VISIT [...] Active Encounters Encounter Location Date Provider Diagnosis [facility] [address] [place] [address] 01/18/2024 Michele Goldman Plan Of Treatment Medication [...] * MARTHA COHENDOB: 9 (43 yo F)Acc No.[id number]:01/18/2024 Patient:?MARTHA COHEN :1980???Age:43 Y???Sex:Female Address:[address] [place] [address] * Refills? Start MiraLax (colon prep) Powder, [...] * Date:? Generated for Juan Jose polo/Jameel/Almassmitting on:?12/06/2024 02:16 PM EDT
--- OUTSIDE RECORDS SUMMARY | 2024-12-06 14:16 | XMS_ITS ---
Author Organization [facility] Address [address] [place] [address] Care Team Providers Care Wire Transfer Clerk Name Role Phone Etienne Monge Primary Care Provider Unavailab Michele Casey Unavailable [phone] Lit Chen Unavailable Unavailable Allergies Allergen (clinical [...] Status Risk Notes Problem Colon cancer screening (104223740) Colon cancer screening (Z12.11) Active confirmed Problem Gastroesophageal reflux disease (152382561) Chronic GERD (K21.9) Active confirmed Problem Anemia (757215126) Anemia (D64.9) Active confirmed Vital Signs Temperature 97.7 degrees Fahrenheit 01/18/20 24 Blood pressure systolic 000 mm Hg 01/18/20 24 Blood pressure diastolic 00 mm Hg 024 Height 5 ft 2 in in 01/18/2024 Weight 179 lb 2 oz lbs 01/18/2024 BMI 32.76 kg/m2 01/18/2024 Encounters Encounter Location Date Provider Diagnosis [facility] [address] [place] [address] 01/18/2024 Michele Goldman Colon cancer screening Z12.11 [...] * MARTHA COHENDOB: 9 (43 yo F)Acc No.[id number]:01/18/2024 Progress Notes Patient:MARTHA CRAWLEY Provider:?Michele Goldman MD :1980???Age:43 Y???Sex:Female D ate:01/18/2024 Address:[address] [place], [place] [phone] Pcp:Etienne Monge Subjective: * Chief Complaints: * [...] in the past year??No,?Points?0,?Interpretation?Negative.?Miscellaneous:?Marital status: single. 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 ???Nonsmoker; no sig [...] Procedure Codes:?3017F COLOR ECTAL CA SCREEN DOC [id number] TOBACCO NON-OTNBU8854 BP SCR NOT PRFRM REC REASON NOS * Preventive Medicine:? ??Counseling:?Care goal follow-up plan:?Above Normal BMI Follow-up?Giving encouragement to exercise,?BMI management provided?Yes.? * Follow Up:?prn * * Sign off status: Completed true * Provider:?Michele Goldman MD Date:? 024 Generated for Juan Jose polo/Jameel/Stephanie on:?12/06/2024 02:16 PM EDT History and Physical Notes * [...]
--- OUTSIDE RECORDS SUMMARY | 2024-12-06 14:16 | XMS_ITS ---
Author Organization [facility] Address [address] [place] [address] Care Team Providers Care Ordering Box Operator Name Role Phone Etienne Monge Primary Care Provider Unavailab Michele Casey Unavailable [phone] Lit Chen Unavailable Unavailable Problems Problem Type SNOMED Code ICD Code Onset Dates Problem Status W/U Status Risk Notes Problem Gastroesophageal reflux disease without esophagitis (455813971) Gastroesophageal reflux disease without esophagitis (K21.9) Active confirmed Encounters Encounter Location Date Provider Diagnosis [facility] [place] [address] [place], [place] [phone] 05/07/2024 Michele Goldman Colon cancer screeni ng [...] * MARTHA COHENDOB: 9 (44 yo F)Acc No.[id number]:05/07/2024 EGD and COL/MAC Patient:?MARTHA COHEN Provider:?Michele Goldman MD :1980???Age:43 Y???Sex:Female D ate:05/07/2024 Address:[address] [place] [address] Pcp:Etienne Monge Subjective: * Chief Complaints: * ??? * Medical History:? Objective: * Vitals:? Assessment: * Assessment: 1.?Colon cancer screening - Z12.11 (Primary)???2.?Other hemorrhoids - K64.8???3.?Gastroesophageal reflux disease without esophagitis - K21.9???4.?Hiatal hernia - K44.9??? Plan: * Treatment: * Procedure Codes:?96461 DIAGN OSTIC COLONOSCOPY, 40996 UPPER GI ENDOSCOPY, BIOPSY * * The named appointment provid er may or may not be the originator of this progress note, and it is not deemed complete until electronically signed by the appointment provider. Sign off status: Pending * Provider:?Michele Goldman MD Date:? 024 Generated for Juan Jose polo/Jameel/eTfletchersmitting on:?12/06/2024 02:16 PM EDT
== END ==
LOC: HO.CARD 10:45
PROVIDERS: PCP Family Medicine; Visit Provider Internal Medicine Cardiovascular Disease
DX: I48.0 Paroxysmal atrial fibrillation (principal)
CPT/HCPCS: 93306

== ENCOUNTER → 2024-12-06 10:48 | Outpatient (BNV) | payer OTHER, SELFPAY | PROVIDERS: PCP Family Medicine; Visit Provider Internal Medicine Cardiovascular Disease | DX: I48.91 Unspecified atrial fibrillation (principal) | CPT/HCPCS: 93306 ==

== ENCOUNTER 2024-12-21 09:43 | Outpatient (REF) | payer OTHER, SELFPAY ==
--- OUTSIDE RECORDS SUMMARY | 2024-12-21 10:15 | XMS_ITS ---
Author Organization [facility] Address [address] [place] [address] Care Team Providers Care Core Microarchitect Name Role Phone Etienne Monge Primary Care Provider Unavailab Michele Casey Unavailable [phone] Lit Chen Unavailable Unavailable Problems Problem Type SNOMED Code ICD Code Onset Dates Problem Status W/U Status Risk Notes Problem Gastroesophageal reflux disease without esophagitis (748652459) Gastroesophageal reflux disease without esophagitis (K21.9) Active confirmed Encounters Encounter Location Date Provider Diagnosis [facility] [place] [address] [place], [place] [phone] 05/07/2024 Michele Goldman Colon cancer screeni ng [...] * MARTHA COHENDOB: 9 (44 yo F)Acc No.[id number]:05/07/2024 EGD and COL/MAC Patient:?MARTHA COHEN Provider:?Michele Goldman MD :1980???Age:43 Y???Sex:Female D ate:05/07/2024 Address:[address] [place] [address] Pcp:Etienne Monge Subjective: * Chief Complaints: * ??? * Medical History:? Objective: * Vitals:? Assessment: * Assessment: 1.?Colon cancer screening - Z12.11 (Primary)???2.?Other hemorrhoids - K64.8???3.?Gastroesophageal reflux disease without esophagitis - K21.9???4.?Hiatal hernia - K44.9??? Plan: * Treatment: * Procedure Codes:?47246 DIAGN OSTIC COLONOSCOPY, 57977 UPPER GI ENDOSCOPY, BIOPSY * * The named appointment provid er may or may not be the originator of this progress note, and it is not deemed complete until electronically signed by the appointment provider. Sign off status: Pending * Provider:?Michele Goldman MD Date:? 024 Generated for Juan Jose polo/Jameel/eTransmitting on:?12/21/2024 10:15 AM EDT
--- OUTSIDE RECORDS SUMMARY | 2024-12-21 10:15 | XMS_ITS ---
Author Organization [facility] Address [address] [place] [address] Care Team Providers Care Educational Technologist Name Role Phone Etienne Monge Primary Care Provider Unavailab Michele Casey Unavailable [phone] Lit Chen Unavailable Unavailable Allergies Allergen (clinical [...] Status Risk Notes Problem Colon cancer screening (870107963) Colon cancer screening (Z12.11) Active confirmed Problem Gastroesophageal reflux disease (147413600) Chronic GERD (K21.9) Active confirmed Problem Anemia (485992934) Anemia (D64.9) Active confirmed Vital Signs Temperature 97.7 degrees Fahrenheit 01/18/20 24 Blood pressure systolic 000 mm Hg 01/18/20 24 Blood pressure diastolic 00 mm Hg 024 Height 5 ft 2 in in 01/18/2024 Weight 179 lb 2 oz lbs 01/18/2024 BMI 32.76 kg/m2 01/18/2024 Encounters Encounter Location Date Provider Diagnosis [facility] [address] [place] [address] 01/18/2024 Michele Goldman Colon cancer screening Z12.11 [...] * MARTHA COHENDOB: 9 (43 yo F)Acc No.[id number]:01/18/2024 Progress Notes Patient:MARTHA CRAWLEY Provider:?Michele Goldman MD :1980???Age:43 Y???Sex:Female D ate:01/18/2024 Address:[address] [place], [place] [phone] Pcp:Etienne Monge Subjective: * Chief Complaints: * [...] in the past year??No,?Points?0,?Interpretation?Negative.?Miscellaneous:?Marital status: single. 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 ???Nonsmoker; no [...] Procedure Codes:?3017F COLOR ECTAL CA SCREEN DOC [id number] TOBACCO NON-RGENX8749 BP SCR NOT PRFRM REC REASON NOS * Preventive Medicine:? ??Counseling:?Care goal follow-up plan:?Above Normal BMI Follow-up?Giving encouragement to exercise,?BMI management provided?Yes.? * Follow Up:?prn * * Sign off status: Completed true * Provider:?Michele Goldman MD Date:? 024 Generated for Juan Jose polo/Jameel/Stephanie on:?12/21/2024 10:15 AM EDT History and Physical Notes * HPI [...]
--- OUTSIDE RECORDS SUMMARY | 2024-12-21 10:15 | XMS_ITS | Patient Health Record ---
Author Organization [facility] Address [address] [place] [address] Care Team Providers Care Predictive Maintenance Technician Name Role Phone Etienne Monge Primary Care Provider Unavailab Michele Casey Unavailable [phone] Lit Chen Unavailable Unavailable Allergies Allergen (clinical drug ingredient) Drug/Non Drug Allergy documented on EMR Reaction Allergy Type Onset Date Status Substance with sulfonamide structure and antibacterial mechanism of action (substance) Sulfa Antibiotics Unknown Drug Allergy Active Results Component Value Reference Range Notes Ur Preg Test Reviewed date:05/07/2024 11:27:00 PM Interpretation: Performing Lab:[facility], [address] [place] [phone] Notes/Report: Urine NEGATIVE NEGATIVE This test was developed to detect early . False negative results may occur after the 5th - 7th week of when using this test method. If clinically indicated, consider a serum hCG. Pathology Reviewed date:05/19/2024 01:45:39 PM Interpretation: Performing Lab:[facility], [address] [place] [address] Notes/Report: ---- Name: Martha Cohen Age/Sex: 43/F : 1980 Unit#: [id number] Attend Dr: Michele Goldman MD Re05/07/24 [facility] Disch: ---- SPEC : [id number] RECD : 05/07/24-151 STATUS: JASON DIXON NUM: [id number] LIAM: 05/07/24-[address] [facility] [address]: Michele Goldman MD ENTERED: 05/07/24- SP [...] microscopic examination, 2 pieces in cassette [facility] Special studies orde red and performed: AB/PAS stains on A and B CONTINUED ON NEXT PAGE ---- Name: Martha Cohen Age/Sex: 43/F : 1980 Unit#: [id number] Attend Dr: Michele Goldman MD Re05/07/24 [facility] Disch: ---- SPEC : [id number] RECD : 05/07/24-1514 STATUS: JASON DIXON NUM: [id number] LIAM: 05/07/[address] [facility] [address]: Michele Goldman MD ENTERED: 05/07/24- SP TYPE: Surgical OTHR DR: Etienne Monge MD ORDERED: ART Stain/6, Gross Micro L4/2, Special st. 2/2, AB/PAS/2 Copies To: Etienne Monge MD [facility] Family Medicine [address] [place] [address] Michele Goldman MD [address] [place] [address] ---- Signed (signature on file) [...] Status Risk Notes Problem Colon cancer screening (384684267) Colon cancer screening (Z12.11) Active confirmed Problem Gastroesophageal reflux disease without esophagitis (461399407) Gastroesophageal reflux disease without esophagitis (K21.9) Active confirmed Problem Anemia (525205212) Anemia (D64.9) Active confir med Problem Gastroesophageal reflux disease (722768847) Chronic GERD (K21.9) Active confirmed Vital Signs Temperature 97.7 degrees Fahrenheit 01/18/2024 Blood pressure diastolic 00 mm Hg 01/18/2024 Height 5 ft 2 in in 01/18/2024 Blood pressure systolic 000 mm Hg 01/18/2024 Weight 179 lb 2 oz lbs 01/18/2024 BMI 32.76 kg/m2 01/18/2024 Encounters Encounter Location Date Provider Diagnosis [facility] Outpatient [address] [place] [phone] 05/07/2024 Michele Goldman Colon cancer screeni ng Z12.11 ; Other hemorrhoids K64.8 ; Gastroesophageal reflux disease without esophagitis K21.9 and Hiatal hernia K44.9 [facility] [address] [place] [address] 01/18/2024 Michele Goldman Colon cancer screeni ng Z12.11 ; Chronic GERD K21.9 and Anemia D64.9 [facility] [address] [place] [phone] 01/18/2024 Michele Goldman Assessments Encounter Date Diagnosis [...] Insured Coverage Start Date Coverage End Date [facility] [address] [address] [place], [place] [id number] MARTHA COHEN Self - patient is the insured Medical (General) History Medical History History ICD Code 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 Mras-zpxyktiuh-Bj. Sheth Psoriasis Denies [place],CVA,renal disease Seasonal asthma GERD HTN Surgical History Surgery Date(Month/Year) Hospitalization History Reason Date(Month/Year)
--- OUTSIDE RECORDS SUMMARY | 2024-12-21 10:15 | XMS_ITS ---
Author Organization [facility] Address [address] [place] [address] Care Team Providers Care Honeycomb Blanket Maker Name Role Phone Etienne Monge Primary Care Provider Unavailab Michele Casey Unavailable [phone] Lit Chen Unavailable Unavailable REASON FOR VISIT [...] Active Encounters Encounter Location Date Provider Diagnosis [facility] [address] [place] [address] 01/18/2024 Michele Goldman Plan Of Treatment Medication [...] * MARTHA COHENDOB: 9 (43 yo F)Acc No.[id number]:01/18/2024 Patient:?MARTHA COHEN :1980???Age:43 Y???Sex:Female Address:[address] [place] [address] * Refills? Start MiraLax (colon prep) Powder, [...] * Date:? Generated for Juan Jose polo/Jameel/Almassmitting on:?12/21/2024 10:14 AM EDT
[2024-12-21 11:41] LABS: Hematocrit 39.4 % (37.0-47.0); Hemoglobin 12.4 g/dl (12.0-16.0); Mean Corpuscular HGB Conc 31.5 g/dl (31.0-35.0); Mean Corpuscular Hemoglobin 28.1 pg (27.0-33.0); Mean Corpuscular Volume 89.3 fL (80.0-98.0); Mean Platelet Volume 10.2 fL (9.4-12.3); Platelet Count 476 X10*3/uL (160-400); Red Blood Count 4.41 X10*6/uL (4.20-5.50); Red Cell Distribution Width 15.3 % (11.0-16.0); White Blood Count 12.5 X10*3/uL (4.8-10.8)
[2024-12-21 12:12] LABS: Alanine Aminotransferase 28 U/L (0-31); Albumin Level 4.1 g/dL (3.5-5.0); Alkaline Phosphatase 89 U/L (39-117); Anion Gap 14 (12-20); Aspartate Amino Transferase 28 U/L (5-31); Bilirubin Total 0.4 mg/dL (0.0-1.0); Blood Urea Nitrogen 16 mg/dL (9-16); Calcium 9.6 mg/dL (8.4-10.2); Carbon Dioxide 23 mmol/L (22-29); Chloride 106 mmol/L (96-108); Estimated Glomerular Filt Rate > 60; Glucose Random 120 mg/dL (60-115); Iron 34 mcg/dL (30-160); Percent Iron Saturation 10 % (15-50); Potassium 4.7 mmol/L (3.3-5.1); Sodium 138 mmol/L (135-145); Total Iron Binding Capacity 325 mcg/dL (228-428); Total Protein 7.8 g/dL (6.5-8.0); Unsaturated Iron Binding 291 ug/dL
[2024-12-21 12:28] LABS: Folate 10.7 ng/mL (> or = 4.0); Vitamin B12 343 pg/mL (200-900)
== END 2024-12-21 09:44 | disposition home or self-care (01) ==
LOC: HO.WFDLDS 09:43
PROVIDERS: Visit Provider Nurse Practitioner Family
DX: E11.29 Type 2 diabetes mellitus with other diabetic kidney complication (principal); R80.9 Proteinuria, unspecified; D50.9 Iron deficiency anemia, unspecified; I48.0 Paroxysmal atrial fibrillation; I10 Essential (primary) hypertension; E11.65 Type 2 diabetes mellitus with hyperglycemia; Z79.4 Long term (current) use of insulin; E11.40 Type 2 diabetes mellitus with diabetic neuropathy, unspecified; E78.00 Pure hypercholesterolemia, unspecified
CPT/HCPCS: 36415; 80053; 82607; 82746; 83540; 85027

== ENCOUNTER 2024-12-25 09:43 | Outpatient (AMB) | payer OTHER, SELFPAY ==
--- NOTE | 2024-12-25 10:03 | MHC.PC.OV ---
Vital Signs 12/25/24 10:11 Height 5 ft 2 in Weight 189 lb 4 oz BMI 34.6 BP 124/62 Blood Pressure Location Lt brachial Position Sitting Respiration 14 Pulse 92 Pulse Source Pulse Oximeter Temp 97.7 F Temp Source Oral Pulse Oximetry (%) 99 Oxygen Delivery Method Room Air Intake Visit Reasons: F/u diabetes and hyperlipidemia. Intake Note: patients follow-up for diabetes and hyoerlipidemia Allergies Sulfa (Sulfonamide Antibiotics) Allergy (Intermediate, Verified 12/25/24 10:07) rash on face. Tobacco use date assessed: 12/25/24 Dental Screening Dental Screen Date: 12/25/24 Did you have a dental visit in the last 12 months?: No Did you have a dental problem in the last 6 months where you did not have access to dental care?: No Was dental information given to patient?: Yes HPI F/u diabetes and hyperlipidemia. HPI Details 44 y/o female presents to f/u DM, HLD, HTN. Labs drawn 12/21/24. Reviewed labs with pt. Liver enzymes are fine. No recent lipid panel. Blood pressure today 124/62, 92p. She is on lisinopril 20mg daily. [facility] Medical History (Updated 12/25/24 @ 10:23 by Sheng Haji) Diabetes Anemia Adhesive capsulitis of both shoulders Vertigo High cholesterol Surgical History No history of previous surgery Family History Mother Diabetes Family history of thyroid problem Father No known health problems Maternal Grandmother Diabetes Paternal Grandmother Diabetes Maternal Grandfather Substance abuse in family Brother Substance abuse in family Mental health disorder Paternal Uncle Mental health disorder Social History Household Members: Significant Other Household Members Other:: boyfriend Housing: Apartment Patient Tobacco Use Status: Never used Tobacco e-Cigarette/Vaping Use: Never Used Second Hand Smoke Exposure: No service: No Current occupational status: employed Current occupation: [employer] Current occupational exposures/hazards: No Cognitive needs: No Hearing needs: No Vision needs: No Female Reproductive History Menstrual Age of Menarche: 12 Questionnaire Thrive Questionnaire Date Thrive assessed: 09/22/24 I am a: Patient What is your living situation today?: I have a steady place to live Within the past 12 months, did the food you bought not last and you didn't have the money to get more?: Never true Within the past 12 months, did you worry whether your food would run out before you got money to buy more?: Never true Do you have trouble paying for medicines?: No Do you have trouble getting transportation to medical appointments?: No Do you have trouble paying your heating and electricity bill?: No Do you have trouble taking care of your child, family member or friend?: No Do you have trouble with day-to-day activities such as bathing, preparing meals, shopping, managing finances, etc.?: No Are you currently unemployed and looking for a job?: Yes Are you interested in more education?: No Please select the resources that you would like help with: None Currently or been in a relationship where the following occur: No concerns reported THRIVE Score: 0 AUDIT C Alcohol Use Questionnaire (AUDIT-C) 2. How many drinks containing alcohol do you have on a typical day when you are drinking?: 1 or 2 Total Score: 0 JAZMIN-7 AMB Questionnaire JAZMIN-7 Date JAZMIN - 7 assessed: 06/25/24 Source: Developed by Drs. Michele Mariee, Samantha Cano, Juan Luis Goetz and colleagues, with an educational jalyn from [employer]. Review of Systems Const Denies chills, Denies fatigue, Denies fever(s), Denies headache(s) and Denies weakness ENT Denies dizziness and Denies headache(s) Card Denies dyspnea Resp Denies cough, Denies dyspnea, Denies wheezing and Denies other (shortness of breath) Musc Denies numbness and Denies tingling Neuro Denies dizziness, Denies headache(s), Denies numbness, Denies tingling and Denies weakness Psych Denies anxiety and Denies depression Endo Denies fatigue Aller/Immun Denies wheezing Physical exam (Primary Care) Vital Signs: Last Vital Signs Temp 97.7 F 12/25/24 10:11 Pulse 92 12/25/24 10:11 Resp 14 12/25/24 10:11 BP 124/62 12/25/24 10:11 Pulse Ox 99 12/25/24 10:11 Oxygen Delivery Method Room Air 04/15/25 10:11 BMI result Body Mass Index 34.6 Tobacco/Smoking Status: Tobacco use Status Tobacco use date assessed 12/25/24 12/25/24 10:12 Patient Tobacco Use Status Never used Tobacco 12/25/24 10:03 e-Cigarette/Vaping Use Never Used 12/25/24 10:03 Thrive Assessment: Date of Thrive Assessment Date Thrive assessed 09/22/24 12/25/24 10:03 Currently or been in a relationship where the following occur: No concerns reported Const General: well developed; No acute distress Nutritional Appearance: well nourished Orientation/consciousness: patient oriented x3 HENMT Head: Yes normocephalic and Yes atraumatic Eyes General: appearance normal, both eyes and all related structures Pupils: Equal, round and reactive pupils present EOM: EOMs intact bilaterally Resp Effort & Inspection: normal respiratory effort Auscultation: clear to auscultation bilaterally Cardio Rate: regular rate Rhythm: regular rhythm Heart sounds: S1 normal heart sound present, S2 normal heart sound present, no gallops, no murmurs and no rubs Neuro General: patient oriented x3 and gait normal Cranial nerves: Yes Equal, round and reactive pupils present Psych Affect: normal affect Coding Level of Care Code Est Pt Level 3 (12552) Diagnoses Hypertension due to endocrine disorder I15.2 Hypertension type: secondary to endocrine disorders 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 due to underlying condition with retinopathy, macular edema presence unspecified, unspecified laterality, unspecified retinopathy severity, unspecified whether intermediate frame tender insulin use E08.319 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 complication detail: with diabetic retinopathy 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 complication status: with ophthalmic complications 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 [facility] insulin use: unspecified intermediate frame tender insulin use status 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 macular edema: macular edema presence unspecified 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 type: due to underlying condition Diabetic retinopathy severity: with unspecified retinopathy severity Laterality: unspecified laterality Assessment & Plan Assessment & Plan (1) Hypertension: Code(s): I10 - Essential (primary) hypertension Category: Medical Qualifiers: Hypertension type: secondary to endocrine disorders Qualified Code(s): I15.2 - Hypertension secondary to endocrine disorders Plan: Blood?pressure?124/62?is?controlled.??Goal?is?less?than?130/80 Continue?current?medication?regimen (2) Diabetes: Code(s): E11.9 - Type 2 diabetes mellitus without complications Category: Medical Qualifiers: 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 complication detail: with diabetic retinopathy 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 complication status: with ophthalmic complications 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 [facility] insulin use: unspecified intermediate frame tender insulin use status 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 macular edema: macular edema presence unspecified 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 type: due to underlying condition Diabetic retinopathy severity: with unspecified retinopathy severity Laterality: unspecified laterality Qualified Code(s): E08.319 - 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 due to underlying condition with unspecified diabetic retinopathy without macular edema Plan: A1c?has?improved?from?7.8%?to?7.4%. Still?above?goal?of?less?than?7% Continue?metformin?and?semaglutide?as?prescribed Will?increase?Trulicity?from?1.5?mg?weekly?to?3.0?mg?weekly. She?has?had?some?difficulty?with?tolerating SGLT2?and?GLP-1?medications?in?the?past. We?discussed?increasing?metformin?to?3?times?a?day?but?she?does?not?want?to?do?this. Agrees?to?try?again?with?increase?of?Trulicity?as?above Orders: Orders LDL Cholesterol Direct Today E78.00 - Pure hypercholesterolemia, unspecified, E78.5 - Hyperlipidemia, unspecified Lipid Panel Today E78.00 - Pure hypercholesterolemia, unspecified, Z00.00 - Encounter for general adult medical examination without abnormal findings Basic Metabolic Panel Fasting Today E78.00 - Pure hypercholesterolemia, unspecified Medications: Changed From dulaglutide 1.5 mg (0.5 mL) subcut QWEEK 28 days 2 mL 2RF To dulaglutide 3 mg (0.5 mL) subcut QWEEK 2 mL 2RF 28 days
[2024-12-25 10:11] VITALS: BP 124/62; PULSE 92; RESP 14; TEMP 36.5; O2SAT 99; BMI 34.6
--- OUTSIDE RECORDS SUMMARY | 2024-12-25 11:01 | XMS_ITS | Patient Health Record ---
Author Organization [facility] Address [address] [place] [address] Care Team Providers Care Change Management Expert Name Role Phone Etienne Monge Primary Care Provider Unavailab Michele Casey Unavailable [phone] Lit Chen Unavailable Unavailable Allergies Allergen (clinical drug ingredient) Drug/Non Drug Allergy documented on EMR Reaction Allergy Type Onset Date Status Substance with sulfonamide structure and antibacterial mechanism of action (substance) Sulfa Antibiotics Unknown Drug Allergy Active Results Component Value Reference Range Notes Ur Preg Test Reviewed date:05/07/2024 11:27:00 PM Interpretation: Performing Lab:[facility], [address] [place] [phone] Notes/Report: Urine NEGATIVE NEGATIVE This test was developed to detect early . False negative results may occur after the 5th - 7th week of when using this test method. If clinically indicated, consider a serum hCG. Pathology Reviewed date:05/19/2024 01:45:39 PM Interpretation: Performing Lab:[facility], [address] [place] [phone] Notes/Report: ---- Name: Martha Cohen Age/Sex: 43/F : 1980 Unit#: [id number] Attend Dr: Michele Goldman MD Re05/07/24 Status : [facility] Location: [facility] Disch: ---- SPEC : [id number] RECD : 05/07/24-151 STATUS: JASON DIXON NUM: [id number] LIAM: 05/07/24-[address] [facility] [address]: Michele Goldman MD ENTERED: 05/07/24- [...] microscopic examination, 2 pieces in cassette B. [facility] Special studies orde red and performed: AB/PAS stains on A and B CONTINUED ON NEXT PAGE ---- Name: Martha Cohen Age/Sex: 43/F : 1980 Unit#: [id number] Attend Dr: Michele Goldman MD Re05/07/24 Status : [facility] Location: [facility] Disch: ---- SPEC : [id number] RECD : 05/07/24-1514 STATUS: JASON DIXON NUM: [id number] LIAM: 05/07/[address] [facility] [address]: Michele Goldman MD ENTERED: 05/07/24- SP TYPE: Surgical OTHR DR: Etienne Monge MD ORDERED: ART Stain/6, Gross Micro L4/2, Special st. 2/2, AB/PAS/2 Copies To: Etienne Monge MD [facility] [address] [place] [phone] Michele Goldman MD [address] [place] [address] ---- Signed (signature on file) [...] Status Risk Notes Problem Colon cancer screening (807723086) Colon cancer screening (Z12.11) Active confirmed Problem Gastroesophageal reflux disease without esophagitis (832864642) Gastroesophageal reflux disease without esophagitis (K21.9) Active confirmed Problem Anemia (071911519) Anemia (D64.9) Active confir med Problem Gastroesophageal reflux disease (313127429) Chronic GERD (K21.9) Active confirmed Vital Signs Temperature 97.7 degrees Fahrenheit 01/18/2024 Blood pressure diastolic 00 mm Hg 01/18/2024 Height 5 ft 2 in in 01/18/2024 Blood pressure systolic 000 mm Hg 01/18/2024 Weight 179 lb 2 oz lbs 01/18/2024 BMI 32.76 kg/m2 01/18/2024 Encounters Encounter Location Date Provider Diagnosis [facility] Outpatient [address] [place] [phone] 05/07/2024 Michele Goldman Colon cancer screeni ng Z12.11 ; Other hemorrhoids K64.8 ; Gastroesophageal reflux disease without esophagitis K21.9 and Hiatal hernia K44.9 [facility] [address] [place] [phone] 01/18/2024 Michele Goldman Colon cancer screeni ng Z12.11 ; Chronic GERD K21.9 and Anemia D64.9 [facility] [address] [place] [phone] 01/18/2024 Michele Goldman Assessments Encounter Date Diagnosis [...] Insured Coverage Start Date [facility] [address] [address] [place], [place] [id number] MARTHA COHEN Self - patient is the insured Medical (General) History Medical History History ICD Code 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 Iycj-seq[facility]odrd-[facility] Psoriasis Denies NC,CVA,renal disease Seasonal asthma GERD HTN Surgical History Surgery Date(Month/Year) Hospitalization History Reason Date(Month/Year)
--- OUTSIDE RECORDS SUMMARY | 2024-12-25 11:02 | XMS_ITS ---
Author Organization [facility] Address [address] [place] [phone] Care Team Providers Care Photogeologist Name Role Phone Etienne Monge Primary Care Provider Unavailab Michele Casey Unavailable [phone] Lit Chen Unavailable Unavailable Allergies Allergen (clinical [...] Status Risk Notes Problem Colon cancer screening (151196868) Colon cancer screening (Z12.11) Active confirmed Problem Gastroesophageal reflux disease (052222340) Chronic GERD (K21.9) Active confirmed Problem Anemia (668973035) Anemia (D64.9) Active confirmed Vital Signs Temperature 97.7 degrees Fahrenheit 01/18/20 24 Blood pressure systolic 000 mm Hg 01/18/20 24 Blood pressure diastolic 00 mm Hg 024 Height 5 ft 2 in in 01/18/2024 Weight 179 lb 2 oz lbs 01/18/2024 BMI 32.76 kg/m2 01/18/2024 Encounters Encounter Location Date Provider Diagnosis [facility] [address] [place] [address] 01/18/2024 Michele Goldman Colon cancer screening Z12.11 [...] * MARTHA COHENDOB: 9 (43 yo F)Acc No.[id number]:01/18/2024 Progress Notes Patient:MARTHA CRAWLEY Provider:?Michele Goldman MD :1980???Age:43 Y???Sex:Female D ate:01/18/2024 Address:[address] [place], [place] [phone] Pcp:Etienne Monge Subjective: * Chief Complaints: * [...] in the past year??No,?Points?0,?Interpretation?Negative.?Miscellaneous:?Marital status: single. 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 ???Nonsmoker; no [...] will be done with monitored anesthesia care.. aMrtha was comfortable with this plan. Thank you [...] Procedure Codes:?3017F COLOR ECTAL CA SCREEN DOC [id number] TOBACCO [id number] BP SCR NOT PRFRM REC REASON NOS * Preventive Medicine:? ??Counseling:?Care goal follow-up plan:?Above Normal BMI Follow-up?Giving encouragement to exercise,?BMI management provided?Yes.? * Follow Up:?prn * * Sign off status: Completed true * Provider:?Michele Goldman MD Date:? 024 Generated for Juan Jose polo/Jameel/Stephanie on:?12/25/2024 11:01 AM EDT History and Physical Notes * [...]
--- OUTSIDE RECORDS SUMMARY | 2024-12-25 11:02 | XMS_ITS ---
Author Organization [facility] Address [address] [place] [phone] Care Team Providers Care Bridge Welder Name Role Phone Etienne Monge Primary Care Provider Unavailab Michele Casey Unavailable [phone] Lit Chen Unavailable Unavailable Problems Problem Type SNOMED Code ICD Code Onset Dates Problem Status W/U Status Risk Notes Problem Gastroesophageal reflux disease without esophagitis (075240380) Gastroesophageal reflux disease without esophagitis (K21.9) Active confirmed Encounters Encounter Location Date Provider Diagnosis [facility] Outpatient [address] [place], [place] [phone] 05/07/2024 Michele Goldman Colon cancer screeni ng [...] * MARTHA COHENDOB: 9 (44 yo F)Acc No.[id number]:05/07/2024 EGD and COL/MAC Patient:?MARTHA COHEN Provider:?Michele Goldman MD :1980???Age:43 Y???Sex:Female D ate:05/07/2024 Address:[address] [place] [address] Pcp:Etienne Monge Subjective: * Chief Complaints: * ??? * Medical History:? Objective: * Vitals:? Assessment: * Assessment: 1.?Colon cancer screening - Z12.11 (Primary)???2.?Other hemorrhoids - K64.8???3.?Gastroesophageal reflux disease without esophagitis - K21.9???4.?Hiatal hernia - K44.9??? Plan: * Treatment: * Procedure Codes:?66028 DIAGN OSTIC COLONOSCOPY, 44703 UPPER GI ENDOSCOPY, BIOPSY * * The named appointment provid er may or may not be the originator of this progress note, and it is not deemed complete until electronically signed by the appointment provider. Sign off status: Pending * Provider:?Michele Goldman MD Date:? 024 Generated for Juan Jose polo/Jameel/eTfletchersmitting on:?12/25/2024 11:01 AM EDT
--- OUTSIDE RECORDS SUMMARY | 2024-12-25 11:02 | XMS_ITS ---
Author Organization [facility] Address [address] [place] [phone] Care Team Providers Care Cheese Maker Name Role Phone Etienne Monge Primary Care Provider Unavailab Michele Casey Unavailable [phone] Lit Chen Unavailable Unavailable REASON FOR VISIT [...] Active Encounters Encounter Location Date Provider Diagnosis [facility] [address] [place] [phone] 01/18/2024 Michele Goldman Plan Of Treatment Medication [...] * MARTHA COHENDOB: 9 (43 yo F)Acc No.[id number]:01/18/2024 Patient:?MARTHA COHEN :1980???Age:43 Y???Sex:Female Address:[address] [place] [address] * Refills? Start MiraLax (colon prep) Powder, [...] * Date:? Generated for Juan Jose polo/Jameel/Almassmitting on:?12/25/2024 11:01 AM EDT
== END 2024-12-25 12:58 | disposition home or self-care (01) ==
PROVIDERS: PCP Family Medicine; Visit Provider Family Medicine
DX: E11.9 Type 2 diabetes mellitus without complications (principal); I15.2 Hypertension secondary to endocrine disorders

== ENCOUNTER → 2024-12-25 09:43 | Outpatient (BNVA) | payer OTHER, SELFPAY | PROVIDERS: PCP Family Medicine; Visit Provider Family Medicine | DX: I15.2 Hypertension secondary to endocrine disorders (principal); E08.319 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 due to underlying condition with unspecified diabetic retinopathy without macular edema; E78.00 Pure hypercholesterolemia, unspecified | CPT/HCPCS: 83036; 99212 ==

== ENCOUNTER 2025-01-08 11:12 | Outpatient (AMB) | payer OTHER, SELFPAY ==
--- NOTE | 2025-01-08 11:16 | MHC.OFFVIS ---
Vital Signs 01/08/25 11:20 Height 5 ft 2 in Weight 188 lb BMI 34.4 BP 110/68 Intake Visit Reasons: [employer] annual exam Software Business Analyst: Software Business Analyst Present (Macy) Allergies Sulfa (Sulfonamide Antibiotics) Allergy (Intermediate, Verified 01/08/25 11:20) rash on face. Is last menstrual period known: Yes Last menstrual period: 12/27/24 HPI Comments Details: She is a premenopausal woman presenting for annual examination. Doing well with no attic fans mechanic concerns. Menses skips every few months for two months. Currently is sexually active. She denies vaginal itching and irritation. STI screening offered; she declined. She tries to eat healthy, lost weight with meds over last 2 yrs. Stays active with exercise- goes to the gym. Denies family history of breast, ovarian. FH colon cancer-MGGF. Last pap smear 2022, negative. Mammogram: 2023. [facility] Medical History Diabetes Anemia Adhesive capsulitis of both shoulders Vertigo High cholesterol Surgical History No history of previous surgery Family History (Updated 01/08/25 @ 11:52 by Rose Melendez Vera) Mother Diabetes Family history of thyroid problem Father No known health problems Maternal Grandmother Diabetes Paternal Grandmother Diabetes Maternal Grandfather Substance abuse in family Brother Substance abuse in family Mental health disorder Paternal Uncle Mental health disorder Family/Other Colon cancer Social History Household Members: Significant Other Household Members Other:: boyfriend Housing: Apartment Patient Tobacco Use Status: Never used Tobacco e-Cigarette/Vaping Use: Never Used Second Hand Smoke Exposure: No service: No Current occupational status: employed Current occupation: [employer] Current occupational exposures/hazards: No Cognitive needs: No Hearing needs: No Vision needs: No Female Reproductive History Menstrual Age of Menarche: 12 Date of last menstrual period: 12/27/24 Total pregnancies: 0 Date of last pap smear: 12/20/22 (neg pap and hpv) Date of Mammogram: 02/16/24 (Birad 2) Review of Systems Const All systems reviewed & are unremarkable except as noted in HPI and below Reports as per HPI Eyes Reports no additional complaints ENT Reports no additional complaints Card Reports no additional complaints Resp Reports no additional complaints GI Reports as per HPI and Reports no additional complaints Reports as per HPI Musc Reports no additional complaints Skin/Breast Reports as per HPI Neuro Reports no additional complaints Psych Reports no additional complaints Endo Reports no additional complaints Danilo/Lymph Reports no additional complaints Aller/Immun Reports no additional complaints Physical Exam Vital Signs: Last Vital Signs BP 110/68 01/08/25 11:20 BMI result Body Mass Index 34.4 Const General: cooperative, healthy appearing, no acute distress, well developed and alert Orientation/consciousness: patient oriented x3 HEENT Head: Yes normal to inspection Eyes General: appearance normal, both eyes and all related structures Neck Neck: Yes normal visual inspection Thyroid: Thyroid normal Chest Chest palpation & inspection: normal inspection of the chest and other (no puckering, dimpling, peau de orange, retraction, discharge, masses) Breast/axilla inspection: normal inspection of the breasts Breast/axilla palpation: normal palpation of the breasts Resp Effort & Inspection: normal respiratory effort GI Inspection: Yes normal to inspection Palpation (GI): Soft to palpation Rectal Exam - Female: deferred General: Yes bladder normal to palpation External Female Exam: normal external appearance and normal appearance of the urethra Speculum Exam - Vagina: normal appearance of the vagina, normal palpation and normal vaginal discharge Speculum Exam - Cervix: normal appearance of the cervix and normal palpation Bimanual exam- vagina & uterus: normal bimanual exam, normal palpation, uterine size normal, bladder normal to palpation, normal palpation and non-tender Bimanual Exam- Adnexa, other: no masses Skin General skin exam: no rashes or lesions noted Rashes: no rashes Neuro General: patient oriented x3 Cognition (Neuro): normal cognition Extrem General: Yes normal to inspection Psych Attitude: cooperative Thought process: Normal thought process present Assessment & Plan Assessment & Plan (1) Encounter for well woman exam with routine gynecological exam: Code(s): Z01.419 - Encounter for gynecological examination (general) (routine) without abnormal findings Category: Medical Plan Discussed: Current recommendations for pap smears per ASCCP guidelines. Breast awareness and periodic breast exams. Mammogram yearly. Maintain a healthy lifestyle including a well balanced diet and routine exercise. Menopause verses perimenopause. Menopause is definitive of 1 year of no menses or 12 months in succession. Report any abnormal uterine bleeding in example prolonged episodes, or short intervals less than 24 days. Monitor menstrual cycles, report any unscheduled bleeding, bleeding episodes <24 days apart or heavy/prolonged menstrual bleeding. Call the office for a follow up for any concerns. Patient verbalizes understanding and agrees to the plan of care. She was given opportunity to ask questions and all questions were answered to the best of my ability. RTO in one year for annual attic fans mechanic examination. This note is constructed using voice recognition software. While every effort has been made to ensure accuracy, restaurant crew person errors may have been included. Orders: Orders MM tomosynthesis screening BI Today Z12.31 - Encounter for screening mammogram for malignant neoplasm of breast Coding Level of Care Code Est Pt Prev Care 40-64y(55720) Diagnoses Encounter for well woman exam with routine gynecological exam Z01.419
[2025-01-08 11:20] VITALS: BP 110/68; BMI 34.4
== END 2025-01-08 11:55 | disposition home or self-care (01) ==
LOC: HO.HWS 11:12
PROVIDERS: PCP Family Medicine; Visit Provider Advanced Practice Midwife
DX: Z01.419 Encounter for gynecological examination (general) (routine) without abnormal findings (principal)
CPT/HCPCS: 99396; 99459

== ENCOUNTER → 2025-01-08 11:12 | Outpatient (BNVA) | payer OTHER, SELFPAY | PROVIDERS: PCP Family Medicine; Visit Provider Advanced Practice Midwife | DX: Z01.419 Encounter for gynecological examination (general) (routine) without abnormal findings (principal) | CPT/HCPCS: 99396; 99459 ==

== ENCOUNTER 2025-01-14 09:25 | Outpatient (REF) | payer OTHER, SELFPAY ==
--- OUTSIDE RECORDS SUMMARY | 2025-01-14 10:11 | XMS_ITS ---
Author Organization [facility] Address [address] [place] [address] Care Team Providers Care Record Label Intern Name Role Phone Etienne Monge Primary Care Provider Unavailab Michele Casey Unavailable [phone] Lit Chen Unavailable Unavailable REASON FOR VISIT [...] Active Encounters Encounter Location Date Provider Diagnosis [facility] [address] [place] [address] 01/18/2024 Michele Goldman Plan Of Treatment Medication [...] * MARTHA COHENDOB: 9 (43 yo F)Acc No.[id number]:01/18/2024 Patient:?MARTHA COHEN :1980???Age:43 Y???Sex:Female Address:[address] [place] [address] * Refills? Start MiraLax (colon prep) Powder, [...] * Date:? Generated for Juan Jose polo/Jameel/Almassmitting on:?01/14/2025 10:10 AM EDT
--- OUTSIDE RECORDS SUMMARY | 2025-01-14 10:11 | XMS_ITS ---
Author Organization [facility] Address [address] [place] [address] Care Team Providers Care Motel Operator Name Role Phone Etienne Monge Primary Care Provider Unavailab Michele Casey Unavailable [phone] Lit Chen Unavailable Unavailable Allergies Allergen (clinical [...] Status Risk Notes Problem Colon cancer screening (252513847) Colon cancer screening (Z12.11) Active confirmed Problem Gastroesophageal reflux disease (287339599) Chronic GERD (K21.9) Active confirmed Problem Anemia (262078361) Anemia (D64.9) Active confirmed Vital Signs Temperature 97.7 degrees Fahrenheit 01/18/20 24 Blood pressure systolic 000 mm Hg 01/18/20 24 Blood pressure diastolic 00 mm Hg 024 Height 5 ft 2 in in 01/18/2024 Weight 179 lb 2 oz lbs 01/18/2024 BMI 32.76 kg/m2 01/18/2024 Encounters Encounter Location Date Provider Diagnosis [facility] [address] [place] [address] 01/18/2024 Michele Goldman Colon cancer screening Z12.11 [...] * MARTHA COHENDOB: 9 (43 yo F)Acc No.[id number]:01/18/2024 Progress Notes Patient:MARTHA CRAWLEY Provider:?Michele Goldman MD :1980???Age:43 Y???Sex:Female D ate:01/18/2024 Address:[address] [place], [place] [phone] Pcp:Etienne Monge Subjective: * Chief Complaints: * [...] in the past year??No,?Points?0,?Interpretation?Negative.?Miscellaneous:?Marital status: single. 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 ???Nonsmoker; no sig [...] Procedure Codes:?3017F COLOR ECTAL CA SCREEN DOC [id number] TOBACCO [id number] BP SCR NOT PRFRM REC REASON NOS * Preventive Medicine:? ??Counseling:?Care goal follow-up plan:?Above Normal BMI Follow-up?Giving encouragement to exercise,?BMI management provided?Yes.? * Follow Up:?prn * * Sign off status: Completed true * Provider:?Michele Goldman MD Date:? 024 Generated for Juan Jose polo/Jameel/Stephanie on:?01/14/2025 10:11 AM EDT History and Physical Notes * [...]
--- OUTSIDE RECORDS SUMMARY | 2025-01-14 10:12 | XMS_ITS ---
Author Organization [facility] Address [address] [place] [address] Care Team Providers Care Six Sigma Project Manager Name Role Phone Etienne Monge Primary Care Provider Unavailab Michele Casey Unavailable [phone] Lit Chen Unavailable Unavailable Problems Problem Type SNOMED Code ICD Code Onset Dates Problem Status W/U Status Risk Notes Problem Gastroesophageal reflux disease without esophagitis (K21.9) Active confirmed Encounters Encounter Location Date Provider [place] [facility] [place] [address] [place] [phone] 05/07/2024 Michele Goldman Colon cancer screeni ng [...] * MARTHA COHENDOB: 9 (44 yo F)Acc No.[id number]:05/07/2024 EGD and COL/MAC Patient:?MARTHA COHEN Provider:?Michele Goldman MD :1980???Age:43 Y???Sex:Female D ate:05/07/2024 Address:[address] [place] [address] Pcp:Etienne Monge Subjective: * Chief Complaints: * ??? * Medical History:? Objective: * Vitals:? Assessment: * Assessment: 1.?Colon cancer screening - Z12.11 (Primary)???2.?Other hemorrhoids - K64.8???3.?Gastroesophageal reflux disease without esophagitis - K21.9???4.?Hiatal hernia - K44.9??? Plan: * Treatment: * Procedure Codes:?00592 DIAGN OSTIC COLONOSCOPY, 33959 UPPER GI ENDOSCOPY, BIOPSY * * The named appointment provid er may or may not be the originator of this progress note, and it is not deemed complete until electronically signed by the appointment provider. Sign off status: Pending * Provider:?Michele Goldman MD Date:? 024 Generated for Juan Jose polo/Jameel/eTransmitting on:?01/14/2025 10:11 AM EDT
[2025-01-14 11:50] LABS: Anion Gap 15 (12-20); Blood Urea Nitrogen 16 mg/dL (9-16); Calcium 9.8 mg/dL (8.4-10.2); Carbon Dioxide 25 mmol/L (22-29); Chloride 102 mmol/L (96-108); Cholesterol 204 mg/dL (<200); Estimated Glomerular Filt Rate > 60; Glucose Fasting 120 mg/dL (60-99); HDL Cholesterol 54 mg/dL (>40); LDL Cholesterol Calculated 95 mg/dL (<100); Potassium 4.6 mmol/L (3.3-5.1); Sodium 137 mmol/L (135-145); Triglycerides 277 mg/dL (<150)
[2025-01-15 20:48] LABS: LDL Cholesterol Direct 119 mg/dL (<100)
== END 2025-01-14 09:26 | disposition home or self-care (01) ==
LOC: HO.WFDLDS 09:25
PROVIDERS: Visit Provider Family Medicine
DX: Z00.00 Encounter for general adult medical examination without abnormal findings (principal); E78.00 Pure hypercholesterolemia, unspecified; E78.5 Hyperlipidemia, unspecified
CPT/HCPCS: 36415; 80048; 80061; 83721

== ENCOUNTER 2025-01-16 11:15 | Outpatient (AMB) | payer OTHER, SELFPAY ==
--- NOTE | 2025-01-16 11:19 | A.OFFPC_ITS ---
Intake Visit Reasons: f/u labs Philosophy Faculty Required: No Allergies Sulfa (Sulfonamide Antibiotics) Allergy (Intermediate, Verified 01/16/25 11:19) rash on face. Medication List - Last Reconciled 01/16/25 by Etienne Monge MD apremilast (Otezla) 30 mg PO BID atorvastatin 40 mg PO DAILY 90 days blood-glucose sensor (FreeStyle Georgette 3 Sensor device) As directed change every 14 days cetirizine 10 mg PO DAILY clobetasol 0.05% 1 appl topical BID dulaglutide 3 mg (0.5 mL) subcut QWEEK 28 days empagliflozin 25 mg PO DAILY 90 days ferrous sulfate 325 mg PO DAILY levalbuterol tartrate 45 mcg/actuation 2 puffs inhalation Q4-6H PRN 30 days lisinopril 20 mg PO DAILY 90 days metformin 1,000 mg PO BID 90 days omeprazole 20 mg PO DAILY 90 days rivaroxaban (Xarelto) 20 mg PO QPM 90 days Tobacco use date assessed: 12/25/24 Dental Screening Dental Screen Date: 12/25/24 HPI f/u labs HPI Details 44 y/o female presents to review lipids. LDL goal less than 70 per Cardiology. She was placed on simvastatin in June as her LDL was 135. Labs drawn 01/14/25. Reviewed labs with pt. Triglycerides 277. TC 204. LDL 119. HDL 54. She is on simvastatin 40mg. Pt reports worsening dizziness/nausea. She notes she describes dizziness is from too much visual stimuli. [facility] Medical History Diabetes Anemia Adhesive capsulitis of both shoulders Vertigo High cholesterol Surgical History No history of previous surgery Family History (Updated 01/08/25 @ 11:52 by YON Prince) Mother Diabetes Family history of thyroid problem Father No known health problems Maternal Grandmother Diabetes Paternal Grandmother Diabetes Maternal Grandfather Substance abuse in family Brother Substance abuse in family Mental health disorder Paternal Uncle Mental health disorder Family/Other Colon cancer Social History Household Members: Significant Other Household Members Other:: boyfriend Housing: Apartment Patient Tobacco Use Status: Never used Tobacco e-Cigarette/Vaping Use: Never Used Second Hand Smoke Exposure: No service: No Current occupational status: employed Current occupation: [employer] Current occupational exposures/hazards: No Cognitive needs: No Hearing needs: No Vision needs: No Female Reproductive History Menstrual Age of Menarche: 12 Questionnaire Thrive Questionnaire Date Thrive assessed: 09/22/24 JAZMIN-7 AMB Questionnaire JAZMIN-7 Date JAZMIN - 7 assessed: 06/25/24 Source: Developed by Drs. Michele Mariee, Samantha Cano, Juan Luis Goetz and colleagues, with an educational jalyn from [employer]. Review of Systems Const Denies chills, Denies fatigue, Denies fever(s), Denies headache(s) and Denies weakness ENT Denies dizziness and Denies headache(s) Card Denies dyspnea Resp Denies cough, Denies dyspnea, Denies wheezing and Denies other (shortness of breath) Musc Denies numbness and Denies tingling Neuro Denies dizziness, Denies headache(s), Denies numbness, Denies tingling and Denies weakness Psych Denies anxiety and Denies depression Endo Denies fatigue Aller/Immun Denies wheezing Physical exam (Primary Care) Tobacco/Smoking Status: Tobacco use Status Tobacco use date assessed 12/25/24 01/16/25 11:20 Patient Tobacco Use Status Never used Tobacco 01/16/25 11:20 e-Cigarette/Vaping Use Never Used 01/16/25 11:20 Thrive Assessment: Date of Thrive Assessment Date Thrive assessed 09/22/24 01/16/25 11:20 Telehealth Telehealth Telehealth Platform: Telephone Location of provider rendering services: practice address Location of patient: address on file Patient Identification confirmed using: Name, : Yes Telehealth method: voice only Patient verbally consented to treatment: Yes Patient verbally consented to billing insurance company: Yes Patient informed of any privacy concerns related to visit: Yes Minutes spent on Phone/Video with Pt.: 8 Coding Level of Care Code Tele Est Pt Level 2 (62132) Diagnoses High cholesterol E78.00 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 due to underlying condition with retinopathy, macular edema presence unspecified, unspecified laterality, unspecified retinopathy severity, unspecified whether prison insulin use E08.319 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 complication detail: with diabetic retinopathy 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 complication status: with ophthalmic complications 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 prison insulin use: unspecified 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 macular edema: macular edema presence unspecified 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 type: due to underlying condition Diabetic retinopathy severity: with unspecified retinopathy severity Laterality: unspecified laterality Dizziness R42 Assessment & Plan Assessment & Plan (1) High cholesterol: Code(s): E78.00 - Pure hypercholesterolemia, unspecified Category: Medical Plan: LDL?cholesterol?is?still?above?goal?of?less?than?70 Switching?simvastatin?to?atorvastatin Will?recheck?lipids?prior?to?next?visit (2) Diabetes: Code(s): E11.9 - Type 2 diabetes mellitus without complications Category: Medical Qualifiers: 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 complication detail: with diabetic retinopathy 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 complication status: with ophthalmic complications 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 She?is?tolerating?regimen Will?recheck?at?next?visit (3) Dizziness: Code(s): R42 - Dizziness and giddiness Category: Medical Plan: Ongoing?symptoms?of?vertigo. She?had?been?referred?to?physical?therapy?but?they?never?contacted?her. I?have?asked?the?office?to?check?on?the?status?of?this?order?an d?help?get?patient?scheduled. Also?advised?she?contact?her maintenance engineer oil field.??Much?of?her?symptoms?are?when?she?is?changing?between?near?and ?far?vision?in?turning?head?such?as?when?grocery?shopping. She?would?also?like?to?try?meclizine?so?I?have?sent?script. Call?or?return?to?office?if?worsening?or?not?improving Orders: Orders Lipid Panel Today E78.00 - Pure hypercholesterolemia, unspecified, Z00.00 - Encounter for general adult medical examination without abnormal findings Hemoglobin A1c Today E11.65 - Type 2 diabetes mellitus with hyperglycemia, R73.01 - Impaired fasting glucose, Z79.4 - [facility] (current) use of insulin PT Evaluation and Treatment Today H81.10 - Benign paroxysmal vertigo, unspecified ear Comprehensive [place]. Panel Fast Today E78.00 - Pure hypercholesterolemia, unspecified, Z00.00 - Encounter for general adult medical examination without abnormal findings Microalbumin, Random (w Creat) Today E11.65 - Type 2 diabetes mellitus with hyperglycemia, I10 - Essential (primary) hypertension, Z79.4 - [facility] (current) use of insulin Medications: New atorvastatin 40 mg PO DAILY 90 tabs 3RF 90 days meclizine 25 mg PO DAILY PRN 10 tabs 0RF motion sickness 10 days Discontinued simvastatin Discontinued Reason: Doctor's Order 40 mg PO BEDTIME 90 tabs 0RF
--- OUTSIDE RECORDS SUMMARY | 2025-01-16 12:43 | XMS_ITS | Patient Health Record ---
Author Organization [facility] Address [address] [place] [address] Care Team Providers Care Pillow Cleaner Name Role Phone Etienne Monge Primary Care Provider Unavailab Michele aCsey Unavailable [phone] Lit Chen Unavailable Unavailable Allergies Allergen (clinical drug ingredient) Drug/Non Drug Allergy documented on EMR Reaction Allergy Type Onset Date Status Substance with sulfonamide structure and antibacterial mechanism of action (substance) Sulfa Antibiotics Unknown Drug Allergy Active Results Component Value Reference Range Notes Ur Preg Test Reviewed date:05/07/2024 11:27:00 PM Interpretation: Performing Lab:[facility], [address] [place] [phone] Notes/Report: Urine NEGATIVE NEGATIVE This test was developed to detect early . False negative results may occur after the 5th - 7th week of when using this test method. If clinically indicated, consider a serum hCG. Pathology Reviewed date:05/19/2024 01:45:39 PM Interpretation: Performing Lab:[facility], [address] [place] [phone] Notes/Report: ---- Name: Martha Cohen Age/Sex: 43/F : 1980 Unit#: [id number] Attend Dr: Michele Goldman MD Re05/07/24 Status : [facility] [place] Location: [facility] Disch: ---- SPEC : [id number] RECD : 05/07/24-151 STATUS: JASON DIXON NUM: [id number] [place]: 05/07/24-[address] [facility] [address]: Michele Goldman MD ENTERED: 05/07/24- [...] microscopic examination, 2 pieces in cassette [facility] Special studies orde red and performed: AB/PAS stains on A and B CONTINUED ON NEXT PAGE ---- Name: Martha Cohen Age/Sex: 43/F : 1980 Unit#: [id number] Attend Dr: Michele Goldman MD Re05/07/24 Status : [facility] Location: [facility] Disch: ---- SPEC : [id number] RECD : 05/07/24-1514 STATUS: JASON DIXON NUM: [id number] [place]: 05/07/[address] [facility] [address]: Michele Goldman MD ENTERED: 05/07/24- SP TYPE: Surgical OTHR DR: Etienne Monge MD ORDERED: ART Stain/6, Gross Micro L4/2, Special st. 2/2, AB/PAS/2 Copies To: Etienne Monge MD [facility] [place] Family Medicine [address] [place] [address] Michele Goldman MD [address] [place] [address] ---- Signed (signature on file) [...] Status Risk Notes Problem Colon cancer screening (279913739) Colon cancer screening (Z12.11) Active confirmed Problem Gastroesophageal reflux disease without esophagitis (K21.9) Active confirmed Problem Anemia (456262793) Anemia (D64.9) Active confir med Problem Gastroesophageal reflux disease (744807416) Chronic GERD (K21.9) Active confirmed Vital Signs Temperature 97.7 degrees Fahrenheit 01/18/2024 Blood pressure diastolic 00 mm Hg 01/18/2024 Height 5 ft 2 in in 01/18/2024 Blood pressure systolic 000 mm Hg 01/18/2024 Weight 179 lb 2 oz lbs 01/18/2024 BMI 32.76 kg/m2 01/18/2024 Encounters Encounter Location Date Provider Diagnosis [facility] [place] [place] Outpatient [address] [place] [phone] 05/07/2024 Michele Goldman Colon cancer screeni ng Z12.11 ; Other hemorrhoids K64.8 ; Gastroesophageal reflux disease without esophagitis K21.9 and Hiatal hernia K44.9 [facility] [address] [place] [phone] 01/18/2024 Michele Goldman Colon cancer screeni ng Z12.11 ; Chronic GERD K21.9 and Anemia D64.9 [facility] [address] [place] [phone] 01/18/2024 Michele Goldman Assessments Encounter Date Diagnosis [...] Insured Coverage Start Date Coverage End Date [facility] [address] [address] [place], [place] [id number] VICKI MARTHA Self - patient is the insured Medical (General) History Medical History History ICD Code 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 Tepe-baqudnnel-Hq. Sheth Psoriasis Denies ND,CVA,renal disease Seasonal asthma GERD HTN Surgical History Surgery Date(Month/Year) Hospitalization History Reason Date(Month/Year)
--- OUTSIDE RECORDS SUMMARY | 2025-01-16 12:44 | XMS_ITS ---
Author Organization [facility] Address [address] [place] [address] Care Team Providers Care Police Investigator Name Role Phone Etienne Monge Primary Care Provider Unavailab Michele Casey Unavailable [phone] Lit Chen Unavailable Unavailable Problems Problem Type SNOMED Code ICD Code Onset Dates Problem Status W/U Status Risk Notes Problem Gastroesophageal reflux disease without esophagitis (K21.9) Active confirmed Encounters Encounter Location Date Provider Diagnosis [facility] [place] [address] [place] [phone] 05/07/2024 Michele Goldman Colon cancer screeni ng [...] * MARTHA COHENDOB: 9 (44 yo F)Acc No.[id number]:05/07/2024 EGD and COL/MAC Patient:?MARTHA COHEN Provider:?Michele Goldman MD :1980???Age:43 Y???Sex:Female D ate:05/07/2024 Address:[address] [place] [address] Pcp:Etienne Monge Subjective: * Chief Complaints: * ??? * Medical History:? Objective: * Vitals:? Assessment: * Assessment: 1.?Colon cancer screening - Z12.11 (Primary)???2.?Other hemorrhoids - K64.8???3.?Gastroesophageal reflux disease without esophagitis - K21.9???4.?Hiatal hernia - K44.9??? Plan: * Treatment: * Procedure Codes:?64747 DIAGN OSTIC COLONOSCOPY, 79490 UPPER GI ENDOSCOPY, BIOPSY * * The named appointment provid er may or may not be the originator of this progress note, and it is not deemed complete until electronically signed by the appointment provider. Sign off status: Pending * Provider:?Michele Golmdan MD Date:? 024 Generated for Juan Jose polo/Jameel/eTfletchersmitting on:?01/16/2025 12:43 PM EDT
--- OUTSIDE RECORDS SUMMARY | 2025-01-16 12:44 | XMS_ITS ---
Author Organization [facility] Address [address] [place] [address] Care Team Providers Care Sammying Machine Operator Name Role Phone Etienne Monge Primary Care Provider Unavailab Michele Casey Unavailable [phone] Lit Chen Unavailable Unavailable REASON FOR VISIT [...] Active Encounters Encounter Location Date Provider Diagnosis [facility] [address] [place] [phone] 01/18/2024 Michele Goldman Plan Of Treatment Medication [...] * MARTHA COHENDOB: 9 (43 yo F)Acc No.[id number]:01/18/2024 Patient:?MARTHA COHEN :1980???Age:43 Y???Sex:Female Address:[address] [place] [address] * Refills? Start MiraLax (colon prep) Powder, [...] * Date:? Generated for Juan Jose polo/Jameel/Almassmitting on:?01/16/2025 12:43 PM EDT
--- OUTSIDE RECORDS SUMMARY | 2025-01-16 12:44 | XMS_ITS ---
Author Organization [facility] Address [address] [place] [address] Care Team Providers Care Advertising Account Representative Name Role Phone Etienne Monge Primary Care Provider Unavailab Michele Casey Unavailable [phone] Lit Chen Unavailable Unavailable Allergies Allergen (clinical [...] Status Risk Notes Problem Colon cancer screening (764019966) Colon cancer screening (Z12.11) Active confirmed Problem Gastroesophageal reflux disease (728631143) Chronic GERD (K21.9) Active confirmed Problem Anemia (912078906) Anemia (D64.9) Active confirmed Vital Signs Temperature 97.7 degrees Fahrenheit 01/18/20 24 Blood pressure systolic 000 mm Hg 01/18/20 24 Blood pressure diastolic 00 mm Hg 024 Height 5 ft 2 in in 01/18/2024 Weight 179 lb 2 oz lbs 01/18/2024 BMI 32.76 kg/m2 01/18/2024 Encounters Encounter Location Date Provider Diagnosis [facility] [address] [place] [address] 01/18/2024 Michele Goldman Colon cancer screening Z12.11 [...] * MARTHA COHENDOB: 9 (43 yo F)Acc No.[id number]:01/18/2024 Progress Notes Patient:MARTHA CRAWLEY Provider:?Michele Goldman MD :1980???Age:43 Y???Sex:Female D ate:01/18/2024 Address:[address] [place], [place] [phone] Pcp:Etienne Monge Subjective: * Chief Complaints: * [...] in the past year??No,?Points?0,?Interpretation?Negative.?Miscellaneous:?Marital status: single. 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 ???Nonsmoker; no sig [...] Procedure Codes:?3017F COLOR ECTAL CA SCREEN DOC [id number] TOBACCO [id number] BP SCR NOT PRFRM REC REASON NOS * Preventive Medicine:? ??Counseling:?Care goal follow-up plan:?Above Normal BMI Follow-up?Giving encouragement to exercise,?BMI management provided?Yes.? * Follow Up:?prn * * Sign off status: Completed true * Provider:?Michele Goldman MD Date:? 024 Generated for Juan Jose polo/Jameel/Stephanie on:?01/16/2025 12:43 PM EDT History and Physical Notes * [...]
== END 2025-01-16 13:33 | disposition home or self-care (01) ==
LOC: HO.HMCFM 11:15
PROVIDERS: PCP Family Medicine; Visit Provider Family Medicine
DX: E78.00 Pure hypercholesterolemia, unspecified (principal); E08.319 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 due to underlying condition with unspecified diabetic retinopathy without macular edema; R42 Dizziness and giddiness

== ENCOUNTER → 2025-01-16 11:15 | Outpatient (BNVA) | payer OTHER, SELFPAY | PROVIDERS: PCP Family Medicine; Visit Provider Family Medicine ==

== ENCOUNTER 2025-02-19 09:21 | Outpatient (REF) | payer OTHER, SELFPAY ==
--- OUTSIDE RECORDS SUMMARY | 2025-02-19 10:15 | XMS_ITS | Patient Health Record ---
Author Organization [facility] Address [address] [place] [address] Care Team Providers Care Real Estate Representative Name Role Phone Etienne Monge Primary Care Provider Unavailab Michele Casey Unavailable [phone] Lit Chen Unavailable Unavailable Allergies Allergen (clinical drug ingredient) Drug/Non Drug Allergy documented on EMR Reaction Allergy Type Onset Date Status Substance with sulfonamide structure and antibacterial mechanism of action (substance) Sulfa Antibiotics Unknown Drug Allergy Active Results Component Value Reference Range Notes Ur Preg Test Reviewed date:05/07/2024 11:27:00 PM Interpretation: Performing Lab:[facility], [address] [place] [phone] Notes/Report: Urine NEGATIVE NEGATIVE This test was developed to detect early . False negative results may occur after the 5th - 7th week of when using this test method. If clinically indicated, consider a serum hCG. Pathology Reviewed date:05/19/2024 01:45:39 PM Interpretation: Performing Lab:[facility], [address] [place] [phone] Notes/Report: ---- Name: Martha Cohen Age/Sex: 43/F : 1980 Unit#: [id number] Attend Dr: Michele Goldman MD Re05/07/24 Status : [facility] Location: [facility] Disch: ---- SPEC : [id number] RECD : 05/07/24-151 STATUS: JASON IDXON NUM: [id number] LIAM: 05/07/24-[address] [facility] [address]: Michele Goldman MD ENTERED: 05/07/24- SP [...] microscopic examination, 2 pieces in cassette B. [facility] Special studies orde red and performed: AB/PAS stains on A and B CONTINUED ON NEXT PAGE ---- Name: Martha Cohen Age/Sex: 43/F : 1980 Unit#: [id number] Attend Dr: Michele Goldman MD Re05/07/24 Status : [facility] Location: [facility] Disch: ---- SPEC : [id number] RECD : 05/07/24-1514 STATUS: JASON DIXON NUM: [id number] LIAM: 05/07/[address] [facility] [address]: Michele Goldman MD ENTERED: 05/07/24- SP TYPE: Surgical OTHR DR: Etienne Monge MD ORDERED: ART Stain/6, Gross Micro L4/2, Special st. 2/2, AB/PAS/2 Copies To: Etienne Monge MD [facility] Family Medicine [address] [place] [address] Michele Goldman MD [address] [place] [address] ---- Signed (signature on file) [...] Status Risk Notes Problem Colon cancer screening (090843039) Colon cancer screening (Z12.11) Active confirmed Problem Gastroesophageal reflux disease without esophagitis (K21.9) Active confirmed Problem Anemia (955393551) Anemia (D64.9) Active confir med Problem Gastroesophageal reflux disease (420508237) Chronic GERD (K21.9) Active confirmed Encounters Encounter Location Date Provider Diagnosis [facility] Outpatient [address] [place] [id number] 05/07/2024 Michele Goldman Colon cancer screeni ng [...] Insured Coverage Start Date Coverage End Date [facility] [address] [address] [place], [place] [id number] MARTHA COHEN Self - patient is the insured Medical (General) History Medical History History ICD Code 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 Idft-frdbvasxe-Sd. Sheth Psoriasis Denies [place],CVA,renal disease Seasonal asthma GERD HTN Surgical History Surgery Date(Month/Year) Hospitalization History Reason Date(Month/Year)
[2025-02-19 11:48] LABS: Alanine Aminotransferase 23 U/L (0-31); Albumin Level 4.5 g/dL (3.5-5.0); Alkaline Phosphatase 87 U/L (39-117); Anion Gap 13 (12-20); Aspartate Amino Transferase 26 U/L (5-31); Bilirubin Total 0.3 mg/dL (0.0-1.0); Blood Urea Nitrogen 17 mg/dL (9-16); Calcium 9.7 mg/dL (8.4-10.2); Carbon Dioxide 25 mmol/L (22-29); Chloride 105 mmol/L (96-108); Cholesterol 167 mg/dL (<200); Estimated Glomerular Filt Rate > 60; Glucose Fasting 121 mg/dL (60-99); HDL Cholesterol 39 mg/dL (>40); LDL Cholesterol Calculated 87 mg/dL (<100); Potassium 4.4 mmol/L (3.3-5.1); Sodium 139 mmol/L (135-145); Total Protein 7.4 g/dL (6.5-8.0); Triglycerides 206 mg/dL (<150)
[2025-02-19 12:00] LABS: Estimated Average Glucose 171 mg/dL; Hemoglobin A1c % 7.6 % (<6.0)
[2025-02-19 15:23] LABS: Microalbum/Creatinine Ratio Ur 26.8 ug/mg cr (<30)
== END 2025-02-19 09:22 | disposition home or self-care (01) ==
LOC: HO.WFDLDS 09:21
PROVIDERS: Visit Provider Family Medicine
DX: Z00.00 Encounter for general adult medical examination without abnormal findings (principal); E11.65 Type 2 diabetes mellitus with hyperglycemia; Z79.4 Long term (current) use of insulin; E78.00 Pure hypercholesterolemia, unspecified; I10 Essential (primary) hypertension
CPT/HCPCS: 36415; 80053; 80061; 82043; 82570; 83036

== ENCOUNTER 2025-03-08 11:19 | Outpatient (REF) | payer OTHER, SELFPAY ==
--- OUTSIDE RECORDS SUMMARY | 2025-03-08 12:30 | XMS_ITS | Patient Health Record ---
Author Organization [facility] Address [address] [place] [address] Care Team Providers Care Prosthodontist Name Role Phone Etienne Monge Primary Care Provider Unavailab Michele Casey Unavailable [phone] Lit Chen Unavailable Unavailable Allergies Allergen (clinical drug ingredient) Drug/Non Drug Allergy documented on EMR Reaction Allergy Type Onset Date Status Substance with sulfonamide structure and antibacterial mechanism of action (substance) Sulfa Antibiotics Unknown Drug Allergy Active Results Component Value Reference Range Notes Ur Preg Test Reviewed date:05/07/2024 11:27:00 PM Interpretation: Performing Lab:[facility], [address] [place] [phone] Notes/Report: Urine NEGATIVE NEGATIVE This test was developed to detect early . False negative results may occur after the 5th - 7th week of when using this test method. If clinically indicated, consider a serum hCG. Pathology Reviewed date:05/19/2024 01:45:39 PM Interpretation: Performing Lab:[facility], [address] [place] [phone] Notes/Report: Reason For Referral No Information Medications Medication [...] 10 MG TAKE 1 TABLET BY MO UT DAILY FOR 30 DAYS Oral for 90 [...] Status Risk Notes Problem Colon cancer screening (872788131) Colon cancer screening (Z12.11) Active confirmed Problem Gastroesophageal reflux disease without esophagitis (K21.9) Active confirmed Problem Anemia (157999948) Anemia (D64.9) Active confir med Problem Gastroesophageal reflux disease (201064630) Chronic GERD (K21.9) Active confirmed Encounters Encounter Location Date Provider Diagnosis [facility] Outpatient [address] [place] [id number] 05/07/2024 Michele Goldman Colon cancer screeni ng [...] Insured Coverage Start Date Coverage End Date [facility] [address] [address] [place], [place] [id number] MARTHA COHEN Self - patient is the insured Medical (General) History Medical History History ICD Code 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 Qrxc-suudczmre-Yy. Sheth Psoriasis Denies [place],CVA,renal disease Seasonal asthma GERD HTN Surgical History Surgery Date(Month/Year) Hospitalization History Reason Date(Month/Year)
== END 2025-03-08 11:20 | disposition home or self-care (01) ==
LOC: HO.MAMMO 11:19
PROVIDERS: PCP Family Medicine; Visit Provider Advanced Practice Midwife
DX: Z12.31 Encounter for screening mammogram for malignant neoplasm of breast (principal)
CPT/HCPCS: 77063; 77067

== ENCOUNTER → 2025-03-08 11:30 | Outpatient (BNV) | payer OTHER, SELFPAY | PROVIDERS: PCP Family Medicine; Visit Provider Internal Medicine | DX: Z12.31 Encounter for screening mammogram for malignant neoplasm of breast (principal) | CPT/HCPCS: 77063; 77067 ==

== ENCOUNTER 2025-03-27 10:38 | Outpatient (AMB) | payer OTHER, SELFPAY ==
--- NOTE | 2025-03-27 10:52 | MHC.PC.OV ---
Vital Signs 03/27/25 10:54 Height 5 ft 2 in Weight 185 lb BMI 33.8 BP 118/60 Blood Pressure Location Rt brachial Position Sitting Respiration 12 Pulse 107 H Pulse Source Pulse Oximeter Temp 98 F Temp Source Oral Pulse Oximetry (%) 99 Oxygen Delivery Method Room Air Intake Visit Reasons: f/u HTN, DM Intake Note: patient is scheduled for htn and dm follow up Can Sterilizer Required: No Allergies Sulfa (Sulfonamide Antibiotics) Allergy (Intermediate, Verified 03/27/25 10:53) rash on face. Medication List - Last Reconciled 03/27/25 by Etienne Monge MD apremilast (Otezla) 30 mg PO BID atorvastatin 80 mg PO DAILY 90 days blood-glucose sensor (bigtincanStyle Georgette 3 Sensor device) As directed change every 14 days cetirizine 10 mg PO DAILY clobetasol 0.05% 1 appl topical BID dulaglutide 4.5 mg (0.75 mL) subcut QWEEK 28 days empagliflozin 25 mg PO DAILY 90 days ferrous sulfate 325 mg PO DAILY levalbuterol tartrate 45 mcg/actuation 2 puffs inhalation Q4-6H PRN 30 days lisinopril 20 mg PO DAILY 90 days meclizine 25 mg PO DAILY PRN 10 days metformin 1,000 mg PO BID 90 days omeprazole 20 mg PO DAILY 90 days rivaroxaban (Xarelto) 20 mg PO QPM 90 days Tobacco use date assessed: 12/25/24 Dental Screening Dental Screen Date: 12/25/24 HPI f/u HTN, DM HPI Details 44 y/o female presents to f/u HTN, diabetes. Also following up on lipids. Labs ordered. Had switched simvastatin to artovastatin. Labs drawn 02/19/25. Reviewed labs with pt. Fasting glucose of 121. A1c 7.6%. Triglycerides 206. TC 167. LDL 87. HDL low at 39. She is on artovastatin 40mg daily. BP today 118/60, 107p. She is on lisinopril 20mg daily. HPI Comments History of Present Illness Details Documentation assistance for Etienne Monge MD, was provided by Sheng Haji,? Finance Broker on 03/27/2025 at 11:22 AM EST. I, Dr. Monge, have read, observed, and verified documentation. ON LICENSE OF [facility] Medical History Diabetes Anemia Adhesive capsulitis of both shoulders Vertigo High cholesterol Surgical History No history of previous surgery Family History (Updated 01/08/25 @ 11:52 by YON Prince) Mother Diabetes Family history of thyroid problem Father No known health problems Maternal Grandmother Diabetes Paternal Grandmother Diabetes Maternal Grandfather Substance abuse in family Brother Substance abuse in family Mental health disorder Paternal Uncle Mental health disorder Family/Other Colon cancer Social History Household Members: Significant Other Household Members Other:: boyfriend Housing: Apartment Patient Tobacco Use Status: Never used Tobacco e-Cigarette/Vaping Use: Never Used Second Hand Smoke Exposure: No service: No Current occupational status: employed Current occupation: [employer] Current occupational exposures/hazards: No Cognitive needs: No Hearing needs: No Vision needs: No Female Reproductive History Menstrual Age of Menarche: 12 Questionnaire Thrive Questionnaire Date Thrive assessed: 09/22/24 I am a: Patient What is your living situation today?: I have a steady place to live Within the past 12 months, did the food you bought not last and you didn't have the money to get more?: Never true Within the past 12 months, did you worry whether your food would run out before you got money to buy more?: Never true Do you have trouble paying for medicines?: No Do you have trouble getting transportation to medical appointments?: No Do you have trouble paying your heating and electricity bill?: No Do you have trouble taking care of your child, family member or friend?: No Do you have trouble with day-to-day activities such as bathing, preparing meals, shopping, managing finances, etc.?: No Are you currently unemployed and looking for a job?: Yes Are you interested in more education?: No Please select the resources that you would like help with: None Currently or been in a relationship where the following occur: No concerns reported THRIVE Score: 0 JAZMIN-7 AMB Questionnaire JAZMIN-7 Date JAZMIN - 7 assessed: 06/25/24 Source: Developed by Samantha CohenW. Jerome, Juan Luis Goetz and colleagues, with an educational jalyn from [employer]. Review of Systems Const Denies chills, Denies fatigue, Denies fever(s), Denies headache(s) and Denies weakness ENT Denies dizziness and Denies headache(s) Card Denies dyspnea Resp Denies cough, Denies dyspnea, Denies wheezing and Denies other (shortness of breath) Musc Denies numbness and Denies tingling Neuro Denies dizziness, Denies headache(s), Denies numbness, Denies tingling and Denies weakness Psych Denies anxiety and Denies depression Endo Denies fatigue Aller/Immun Denies wheezing Physical exam (Primary Care) Vital Signs: Last Vital Signs Temp 98 F 03/27/25 10:54 Pulse 107 H 03/27/25 10:54 Resp 12 03/27/25 10:54 BP 118/60 03/27/25 10:54 Pulse Ox 99 03/27/25 10:54 Oxygen Delivery Method Room Air 03/27/25 10:54 BMI result Body Mass Index 33.8 Tobacco/Smoking Status: Tobacco use Status Tobacco use date assessed 12/25/24 03/27/25 10:57 Patient Tobacco Use Status Never used Tobacco 03/27/25 10:57 e-Cigarette/Vaping Use Never Used 03/27/25 10:57 Thrive Assessment: Date of Thrive Assessment Date Thrive assessed 09/22/24 03/27/25 10:57 Currently or been in a relationship where the following occur: No concerns reported Const General: well developed; No acute distress Nutritional Appearance: well nourished Orientation/consciousness: patient oriented x3 [facility]: Yes normocephalic and Yes atraumatic Eyes General: appearance normal, both eyes and all related structures Pupils: Equal, round and reactive pupils present EOM: EOMs intact bilaterally Resp Effort & Inspection: normal respiratory effort Auscultation: clear to auscultation bilaterally Cardio Rate: tachycardic Rhythm: regular rhythm Heart sounds: S1 normal heart sound present, S2 normal heart sound present, no gallops, no murmurs and no rubs Neuro General: patient oriented x3 and gait normal Cranial nerves: Yes Equal, round and reactive pupils present Psych Affect: normal affect Coding Level of Care Code Est Pt Level 4 (30042) Diagnoses Hypertension due to endocrine disorder I15.2 Hypertension type: secondary to endocrine disorders 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 due to underlying condition with retinopathy, macular edema presence unspecified, unspecified laterality, unspecified retinopathy severity, unspecified whether middle or intermediate school principal insulin use E08.319 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 complication detail: with diabetic retinopathy 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 complication status: with ophthalmic complications 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 middle or intermediate school principal insulin use: unspecified middle or intermediate school principal insulin use status 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 macular edema: macular edema presence unspecified 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 type: due to underlying condition Diabetic retinopathy severity: with unspecified retinopathy severity Laterality: unspecified laterality High cholesterol E78.00 Tachycardia R00.0 Elevated WBC count D72.829 Assessment & Plan Assessment & Plan (1) Hypertension: Code(s): I10 - Essential (primary) hypertension Category: Medical Qualifiers: Hypertension type: secondary to endocrine disorders Qualified Code(s): I15.2 - Hypertension secondary to endocrine disorders Plan: Blood pressure is controlled. 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 We discussed that if we are not at goal, we will have her see Endocrinology again. Had seen Endocrinology in the past they signed off. Would refer back. (3) High cholesterol: Code(s): E78.00 - Pure hypercholesterolemia, unspecified Category: Medical Plan: LDL still not quite at goal of less than 70 which was recommended by her clinical exercise specialist. Increasing atorvastatin to 80 mg daily (4) Tachycardia: Code(s): R00.0 - Tachycardia, unspecified Category: Medical Plan: Mild tachycardia and likely secondary to mild dehydration and mild deconditioning. Improves to less than 100 on auscultation after relaxation. Encouraged exercise. Patient notes that she does not exercise at all. Suggested walking 3 times a week. (5) Elevated WBC count: Code(s): D72.829 - Elevated white blood cell count, unspecified Category: Medical Plan: Patient has psoriasis and her specialist once he use immune modulators but noted a leukocytosis. She has seen Hematology-Oncology in the past for anemia. Rechecking CBC. Will discuss with patient. May need referral back Hematology-Oncology. Orders: Orders Complete Blood Count Auto Diff Today D50.8 - Other iron deficiency anemias, Z00.00 - Encounter for general adult medical examination without abnormal findings Vitamin B12 and Folate Today D50.8 - Other iron deficiency anemias, E53.8 - Deficiency of other specified B group vitamins CRP High Sensitivity Today D50.8 - Other iron deficiency anemias Ferritin Today D50.8 - Other iron deficiency anemias TSH reflex Free T4 Today D50.8 - Other iron deficiency anemias, Z00.00 - Encounter for general adult medical examination without abnormal findings Hemoglobin A1c Today E08.319 - 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 due to underlying condition with unspecified diabetic retinopathy without macular edema, R73.01 - Impaired fasting glucose Comprehensive [place]. Panel Fast Today E78.00 - Pure hypercholesterolemia, unspecified, Z00.00 - Encounter for general adult medical examination without abnormal findings Lipid Panel Today E78.00 - Pure hypercholesterolemia, unspecified, Z00.00 - Encounter for general adult medical examination without abnormal findings Basic Metabolic Panel Today D50.8 - Other iron deficiency anemias, Z00.00 - Encounter for general adult medical examination without abnormal findings IRON PROFILE Today D50.8 - Other iron deficiency anemias Erythrocyte Sedimentation Rate Today D50.8 - Other iron deficiency anemias Medications: Changed From dulaglutide 3 mg (0.5 mL) subcut QWEEK 28 days 2 mL 2RF To dulaglutide 4.5 mg (0.75 mL) subcut QWEEK 3 mL 2RF 28 days From atorvastatin 40 mg PO DAILY 90 days 90 tabs 3RF E78.00 - Pure hypercholesterolemia, unspecified To atorvastatin 80 mg PO DAILY 90 tabs 3RF 90 days E78.00 - Pure hypercholesterolemia, unspecified
[2025-03-27 10:54] VITALS: BP 118/60; PULSE 107; RESP 12; TEMP 36.6; O2SAT 99; BMI 33.8
--- OUTSIDE RECORDS SUMMARY | 2025-03-27 11:18 | XMS_ITS | Patient Health Record ---
Author Organization [facility] Address [address] [place] [address] Care Team Providers Care Vice President Lending Name Role Phone Etienne Monge Primary Care Provider Unavailab Michele Casey Unavailable [phone] Lit Chen Unavailable Unavailable Allergies Allergen (clinical drug ingredient) Drug/Non Drug Allergy documented on EMR Reaction Allergy Type Onset Date Status Substance with sulfonamide structure and antibacterial mechanism of action (substance) Sulfa Antibiotics Unknown Drug Allergy Active Results Component Value Reference Range Notes Ur Preg Test Reviewed date:05/07/2024 11:27:00 PM Interpretation: Performing Lab:[facility], [address] [place] [phone] Notes/Report: Urine NEGATIVE NEGATIVE This test was developed to detect early . False negative results may occur after the 5th - 7th week of when using this test method. If clinically indicated, consider a serum hCG. Pathology Reviewed date:05/19/2024 01:45:39 PM Interpretation: Performing Lab:[facility], [address] [place] [phone] Notes/Report: Reason For Referral No Information Medications [...] Status Risk Notes Problem Colon cancer screening (434853401) Colon cancer screening (Z12.11) Active confirmed Problem Gastroesophageal reflux disease without esophagitis (K21.9) Active confirmed Problem Anemia (407289397) Anemia (D64.9) Active confir med Problem Gastroesophageal reflux disease (366867232) Chronic GERD (K21.9) Active confirmed Encounters Encounter Location Date Provider Diagnosis [facility] [place] Outpatient [address] [place] [id number] 05/07/2024 Michele Goldman Colon cancer screeni ng [...] Insured Coverage Start Date Coverage End Date [facility] [address] [address] [place], [place] [id number] MARTHA COHEN Self - patient is the insured Medical (General) History Medical History History ICD Code 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 Xfan-anfunirht-Ln. Sheth Psoriasis Denies [place],CVA,renal disease Seasonal asthma GERD HTN Surgical History Surgery Date(Month/Year) Hospitalization History Reason Date(Month/Year)
== END 2025-03-27 11:40 | disposition home or self-care (01) ==
LOC: HO.HMCFM 10:38
PROVIDERS: PCP Family Medicine; Visit Provider Family Medicine
DX: I15.2 Hypertension secondary to endocrine disorders (principal); E08.319 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 due to underlying condition with unspecified diabetic retinopathy without macular edema; E78.00 Pure hypercholesterolemia, unspecified; R00.0 Tachycardia, unspecified; D72.829 Elevated white blood cell count, unspecified

== ENCOUNTER → 2025-03-27 10:38 | Outpatient (BNVA) | payer OTHER, SELFPAY | PROVIDERS: PCP Family Medicine; Visit Provider Family Medicine | DX: E53.8 Deficiency of other specified B group vitamins (principal); I15.2 Hypertension secondary to endocrine disorders; E08.319 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 due to underlying condition with unspecified diabetic retinopathy without macular edema; E78.00 Pure hypercholesterolemia, unspecified; R00.0 Tachycardia, unspecified; D72.829 Elevated white blood cell count, unspecified; D50.8 Other iron deficiency anemias | CPT/HCPCS: 99212 ==

== ENCOUNTER 2025-03-27 11:49 | Outpatient (REF) | payer OTHER, SELFPAY ==
[2025-03-27 14:47] LABS: MANUAL DIFF FLAG NO
[2025-03-27 15:03] LABS: Hematocrit 38.0 % (37.0-47.0); Hemoglobin 12.4 g/dl (12.0-16.0); Imm Gran Abs Auto 0.07 X10*3/uL (0.00-0.03); Imm Gran Pct Auto 0.5 % (0.0-0.4); Lymphocytes Absolute Auto 2.8 X10*3/uL (1.2-4.9); Mean Corpuscular HGB Conc 32.6 g/dl (31.0-35.0); Mean Corpuscular Hemoglobin 29.1 pg (27.0-33.0); Mean Corpuscular Volume 89.2 fL (80.0-98.0); NRBC Abs Auto 0.000 X10*3/uL (0.0-0.012); NRBC Pct Auto 0.0 /100WBC (0.0-0.2); Platelet Count 520 X10*3/uL (160-400); Red Blood Count 4.26 X10*6/uL (4.20-5.50); White Blood Count 13.7 X10*3/uL (4.8-10.8)
[2025-03-27 15:21] LABS: Alanine Aminotransferase 33 U/L (0-31); Albumin Level 4.3 g/dL (3.5-5.0); Alkaline Phosphatase 89 U/L (39-117); Anion Gap 15 (12-20); Aspartate Amino Transferase 27 U/L (5-31); Blood Urea Nitrogen 12 mg/dL (9-16); Calcium 9.4 mg/dL (8.4-10.2); Carbon Dioxide 23 mmol/L (22-29); Chloride 106 mmol/L (96-108); Cholesterol 167 mg/dL (<200); Estimated Glomerular Filt Rate > 60; HDL Cholesterol 47 mg/dL (>40); Iron 34 mcg/dL (30-160); Percent Iron Saturation 10 % (15-50); Potassium 4.6 mmol/L (3.3-5.1); Sodium 139 mmol/L (135-145); Total Iron Binding Capacity 333 mcg/dL (228-428); Total Protein 7.4 g/dL (6.5-8.0); Triglycerides 192 mg/dL (<150); Unsaturated Iron Binding 299 ug/dL
[2025-03-27 15:41] LABS: Ferritin 21 ng/mL (10-250)
[2025-03-27 15:44] LABS: Folate 9.9 ng/mL (> or = 4.0); Vitamin B12 317 pg/mL (200-900)
== END 2025-03-27 11:50 | disposition home or self-care (01) ==
LOC: HO.WFDLDS 11:49
PROVIDERS: Visit Provider Family Medicine
DX: Z00.00 Encounter for general adult medical examination without abnormal findings (principal); D50.8 Other iron deficiency anemias; E53.8 Deficiency of other specified B group vitamins; E78.00 Pure hypercholesterolemia, unspecified
CPT/HCPCS: 36415; 80048; 80053; 80061; 82607; 82728; 82746; 83540; 84443; 85025; 85652; 86141

== ENCOUNTER 2025-04-18 13:20 | Outpatient (REF) | payer OTHER, SELFPAY ==
--- NOTE | ~2025-04-18 | US_ITS ---
EXAMINATION: Noninvasive assessment of the bilateral lower extremities with ARTERIAL DUPLEX, ANKLE BRACHIAL INDICES (ABIs), and PULSE VOLUME RECORDINGS (PVRs). CLINICAL INFORMATION: Peripheral vascular disease. Occluded left superficial femoral artery, old. TECHNIQUE: Duplex Doppler techniques with waveform analysis and measurement of velocities in the bilateral common femoral, profunda femoris, superficial femoral, popliteal and tibial arteries were performed. Additionally, ankle pulse volume recordings, ankle pressure measurements and ankle brachial indices were obtained of the lower extremity arterial system bilaterally. The study was performed only at rest. COMPARISON: February 23, 2024 FINDINGS: Arrhythmia episodes. DIRECT DUPLEX DOPPLER FINDINGS: RIGHT LEG: Common femoral artery: 139 cm/s, phasicity: Monophasic. Profunda femoris artery: 127 cm/s, phasicity: Monophasic. Superficial femoral artery (proximal): 82 cm/s, phasicity: Monophasic. Superficial femoral artery (mid): 75 cm/s, phasicity: Monophasic. Superficial femoral artery (distal): 101 cm/s, phasicity: Monophasic. Popliteal artery: 56 cm/s, phasicity: Monophasic. Posterior tibial artery: 23 cm/s, phasicity: Monophasic. Peroneal artery: No color Doppler flow. Anterior tibial artery: 29 cm/s, phasicity: Monophasic. Dorsalis pedis artery: 8 cm/s, phasicity:Monophasic. LEFT LEG: Common femoral artery: 231 cm/s, phasicity: Triphasic. Spectral broadening. Profunda femoris artery: 127 cm/s, phasicity: Monophasic. Superficial femoral artery (proximal): 40 cm/s, phasicity: Monophasic. Superficial femoral artery (mid): No color Doppler flow. Superficial femoral artery (distal): 121 cm/s, phasicity: Monophasic. Collateral flow. Popliteal artery: 38 cm/s, phasicity: Monophasic. Posterior tibial artery: 35 cm/s, phasicity: Monophasic. Peroneal artery: No color Doppler flow. Anterior tibial artery: 32 cm/s, phasicity: Monophasic. Dorsalis pedis artery: 11 cm/s, phasicity: Monophasic. BRACHIAL PRESSURES: Right: 132 Left: 130 ANKLE PRESSURES: Right: PT 84, DP 80 Left: PT 78, DP 68 ANKLE-BRACHIAL INDEX: Right: 0.64 Left: 0.59 ANKLE PVR WAVEFORMS: Right: Abnormal Left: Abnormal US/US arterial duplex BI w/ MONROE IMPRESSION: Right leg: Severe inflow disease throughout the interrogated arteries. Left leg: Severe inflow disease throughout the entire vessels. Old occlusion, left superficial femoral artery with collateral flow. MONROE Reference: - >1.4 = calcified vessels - 0.9 - 1.4 = normal - no significant arterial disease - 0.7 - 0.89 = mild peripheral arterial disease - 0.51 - 0.69 = moderate peripheral arterial disease - 0.50 = severe peripheral arterial disease - < .30 = critical arterial disease Electronically signed by: Christiano Venegas MD 04/18/2025 03:26 PM EDT
--- OUTSIDE RECORDS SUMMARY | 2025-04-18 13:21 | XMS_ITS | Encounter Summary ---
Author Organization [facility] Address [address] [facility] [address] [place] [phone] Phone Care Team Providers Care Associate Team Physician Name Role Phone Unknown, Unknown Primary Care Provider Eugene edmonds Encounter Details Date Type Department Care Team (Late st Contact Info) Description 08/18/2023 Transcribe Orders [facility] Specimen Processing [address] [place] [address] Unknown, Unknown, Social History Tobacco Use Types Packs/Day Years Used Date Smoking Tobacco: Never Smokeless Tobacco: Never Alcohol Use Standard Drinks/Week Comments Not Currently 0 (1 standard drink = 0.6 oz pur e alcohol) Education Answer Date Recorded Are you interested in more education? Not on asuncion e 08/17/2023 Are you concerned about learning? Not on file 08/17/2023 No 08/17/2023 No 08/17/2023 Digital Access Answer Date Recorded No 08/17/2023 No 08/17/2023 Reliable internet access at home? Not on file 08/17/2023 Device with a working camera? Not on file Comments Unknown Sex and Gender Information Value Date Recorded Sex Assigned at Not on file Legal Sex Female 6:58 PM EST Gender Identity Not on file Sexual Orientation Not on file documented as of this encounter Plan of Treatment Not on file documented as of this encounter Visit Diagnoses Not on filedocumented in this encounter Care Teams Associate Team Physician Relationship Specialty Start Date End Date Unknown, Unknown, PCP - General 08/17/23 documented as of this encounter Additional Source Comments The information contained in this document represents components of the legal health record. It is not the complete legal health record.[facility]
--- OUTSIDE RECORDS SUMMARY | 2025-04-18 13:21 | XMS_ITS | Patient Health Record ---
Author Organization [facility] Address [address] [place] [address] Care Team Providers Care Docking Pilot Name Role Phone Etienne Monge Primary Care Provider Unavailab Michele Casey Unavailable [phone] Lit Chen Unavailable Unavailable Allergies Allergen (clinical drug ingredient) Drug/Non Drug Allergy documented on EMR Reaction Allergy Type Onset Date Status Substance with sulfonamide structure and antibacterial mechanism of action (substance) Sulfa Antibiotics Unknown Drug Allergy Active Results Component Value Reference Range Notes Ur Preg Test Reviewed date:05/07/2024 11:27:00 PM Interpretation: Performing Lab:[facility], [address] [place] [phone] Notes/Report: Urine NEGATIVE NEGATIVE This test was developed to detect early . False negative results may occur after the 5th - 7th week of when using this test method. If clinically indicated, consider a serum hCG. Pathology Reviewed date:05/19/2024 01:45:39 PM Interpretation: Performing Lab:[facility], [address] [place] [phone] Notes/Report: Reason For Referral No Information Medications [...] Status Risk Notes Problem Colon cancer screening (041526577) Colon cancer screening (Z12.11) Active confirmed Problem Gastroesophageal reflux disease without esophagitis (K21.9) Active confirmed Problem Anemia (347230200) Anemia (D64.9) Active confir med Problem Gastroesophageal reflux disease (081120781) Chronic GERD (K21.9) Active confirmed Encounters Encounter Location Date Provider Diagnosis [facility] Outpatient [address] [place] [id number] 05/07/2024 Michele Goldman Colon cancer screeni ng [...] Insured Coverage Start Date Coverage End Date [facility] [address] [address] [place], [place] [id number] MARTHA COHEN Self - patient is the insured Medical (General) History Medical History History ICD Code 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 Iboq-wrhhbxguq-Fn. Sheth Psoriasis Denies [place],CVA,renal disease Seasonal asthma GERD HTN Surgical History Surgery Date(Month/Year) Hospitalization History Reason Date(Month/Year)
== END 2025-04-18 13:21 | disposition home or self-care (01) ==
LOC: HO.US 13:20
PROVIDERS: PCP Family Medicine; Visit Provider Surgery Vascular Surgery
DX: I70.202 Unspecified atherosclerosis of native arteries of extremities, left leg (principal)
CPT/HCPCS: 93922; 93925

== ENCOUNTER → 2025-04-18 13:21 | Outpatient (BNV) | payer OTHER, SELFPAY | PROVIDERS: PCP Family Medicine; Visit Provider Radiology Diagnostic Radiology | DX: I70.293 Other atherosclerosis of native arteries of extremities, bilateral legs (principal) | CPT/HCPCS: 93922; 93925 ==

== ENCOUNTER 2025-06-06 09:58 | Outpatient (AMB) | payer OTHER, SELFPAY ==
--- OUTSIDE RECORDS SUMMARY | 2024-05-07 08:00 | XMS_ITS ---
Author Organization [facility] Address [address] [place] [address] Care Team Providers Care Trade Union Official Name Role Phone Etienne Monge Primary Care Provider Unavailab Michele Casey Unavailable [phone] Lit Chen Unavailable Unavailable Problems Problem Type SNOMED Code ICD Code Onset Dates Problem Status W/U Status Risk Notes Problem Gastroesophageal reflux disease without esophagitis (705324091) Gastroesophageal reflux disease without esophagitis (K21.9) Active confirmed Encounters Encounter Location Date Provider Diagnosis [facility] [place] Outpatient [address] [place], [place] [phone] 05/07/2024 Michele Goldman Colon cancer screeni ng [...] * MARTHA COHENDOB: 9 (44 yo F)Acc No.[id number]:05/07/2024 EGD and COL/MAC Patient: MARTHA WELLER Provider: Elpidio Goldman MD :1980 A ge:43 Y S ex:Female Date:05/07/2024 Address:[address] [place], [place] [phone] Pcp:Etienne Monge Subjective: * Chief Complaints: * * Medical History: Objective: * Vitals: Assessment: * Assessment: 1. C olon cancer screening - Z12.11 (Primary) 2 . O ther hemorrhoids - K64.8 3 . G astroesophageal reflux disease without esophagitis - K21.9 ?4. H iatal hernia - K44.9 Plan: * Treatment: * Procedure Codes: 4 5378 DIAGNOSTIC COLONOSCOPY, 95984 UPPER GI ENDOSCOPY, BIOPSY * * The named appointment provid er may or may not be the originator of this progress note, and it is not deemed complete until electronically signed by the appointment provider. Sign off status: Pending * Provider: Elpidio Goldman MD Date: 05/07/2024 Generated for Juan Jose polo/Jameel/Patrickitting on: 06/06/2025 12:01 PM EDT
--- NOTE | 2025-06-06 10:02 | A.OFFVIS_ITS ---
Vital Signs 06/06/25 10:03 Height 5 ft 2 in Weight 185 lb BMI 33.8 Intake Visit Reasons: 1y follow up Arterial US 04/18/25 Intake Note: 1 yr arterial follow up 04/18/25, pt states no changes legs, no pain or cramping General Counselor Required: No Accompanied by: Self / Same As Patient Allergies Sulfa (Sulfonamide Antibiotics) Allergy (Intermediate, Verified 06/06/25 10:05) rash on face. HPI HPI 1y follow up Arterial US 04/18/25: Details: The patient is a 44-year-old female presenting for arterial surveillance follow- up. The patient reports that her legs appear the same as before, with no significant changes in symptoms. She experiences fatigue in her legs when walking at an incline or over a distance, necessitating rest breaks, such as during a recent trip to [place]. Previously, she was unable to walk from her car to the store without a break, but now she can walk two to three blocks on a flat surface without needing to rest. The patient has a history of diabetes mellitus for over 10 years, possibly closer to 15 years, which is currently well-managed with medication, including a GLP-1 receptor agonist for weight loss. She reports that her diabetes is better controlled, and she has maintained her weight loss since the last visit. [facility] Medical History Diabetes Anemia Adhesive capsulitis of both shoulders Vertigo High cholesterol Surgical History No history of previous surgery Family History Mother Diabetes Family history of thyroid problem Father No known health problems Maternal Grandmother Diabetes Paternal Grandmother Diabetes Maternal Grandfather Substance abuse in family Brother Substance abuse in family Mental health disorder Paternal Uncle Mental health disorder Family/Other Colon cancer Social History Household Members: Significant Other Household Members Other:: boyfriend Housing: Apartment Patient Tobacco Use Status: Never used Tobacco e-Cigarette/Vaping Use: Never Used Second Hand Smoke Exposure: No service: No Current occupational status: employed Current occupation: [employer] Current occupational exposures/hazards: No Cognitive needs: No Hearing needs: No Vision needs: No Female Reproductive History Menstrual Age of Menarche: 12 Review of Systems Const All systems reviewed & are unremarkable except as noted in HPI and below Reports no additional complaints ENT Reports Normal hearing present Card Denies chest pain, Denies chest pain at rest, Denies chest pain with activity and Denies pedal edema Resp Denies cough GI Denies abdominal pain Musc Denies abnormal gait, Denies muscle cramps and Denies radiating pain into limb Skin/Breast Denies skin ulcer and Denies wounds Neuro Reports Normal hearing present and Denies abnormal gait Psych Reports no additional complaints Physical Exam Vital Signs: BMI result Body Mass Index 33.8 Const General: cooperative, healthy appearing and comfortable Orientation/consciousness: oriented to person, oriented to place and oriented to time HEENT Head: Yes normal to inspection Neck Neck: Yes normal visual inspection Carotids: no bruits Chest Chest palpation & inspection: normal inspection of the chest Resp Effort & Inspection: normal respiratory effort and able to speak in complete sentences Auscultation: clear to auscultation bilaterally, no crackles, no rales, no rhonchi and no wheezes Cardio Other: Bilateral DP signals Rate: regular rate Rhythm: regular rhythm Heart sounds: S1 normal heart sound present and S2 normal heart sound present Bruits: no carotid bruits GI Inspection: Yes normal to inspection Skin Wounds: no wounds Hair: normal Neuro General: oriented to person, oriented to place and oriented to time Cranial nerves: Yes CN's II-XII intact bilaterally and Yes Normal hearing present Cognition (Neuro): normal cognition Motor exam (neuro): 5/5 motor strength present throughout Extrem Other: venous exam: No significant superficial varicosities or spider telangiectasias, minimal edema General: No clubbing, No cyanosis and No edema Psych Appearance: grossly normal Mental Status: mental status grossly normal Speech and movement: Normal speech and movement present Results Reviewed Results Reviewed: She underwent an arterial ultrasound on April 18, 2025, which revealed an ankle- brachial index (MONROE) of 0.64 on the right and 0.59 on the left, written report and images were reviewed Assessment & Plan Assessment & Plan (1) PAD (peripheral artery disease): Code(s): I73.9 - Peripheral vascular disease, unspecified Category: Medical Plan: In short patient has stable claudication. I did review the pathophysiology of peripheral vascular disease with the patient. In addition we did discuss routine conservative measures including a healthy diet and the importance of exercise and ambulation. We did discuss risk factor modification. The patient will continue to to follow-up with surveillance follow-up in approximately 1 year. Thank you for allowing us to participate in this patient's care. If there are any questions or concerns please do not hesitate to contact us. Orders: Orders US arterial duplex LE BI 1 Year I73.9 - Peripheral vascular disease, unspecified Coding Level of Care Code Est Pt Level 4 (89834) Complex EM visit Add On G2211 Diagnoses PAD (peripheral artery disease) I73.9
[2025-06-06 10:03] VITALS: BMI 33.8
--- OUTSIDE RECORDS SUMMARY | 2025-06-06 12:01 | XMS_ITS | Patient Health Record ---
Author Organization [facility] Address [address] [place] [id number] Care Team Providers Care Cloth Printing Inspector Name Role Phone Etienne Monge Primary Care Provider Unavailab Michele Casey Unavailable [phone] Lit Chen Unavailable Unavailable Allergies Allergen (clinical drug ingredient) Drug/Non Drug Allergy documented on EMR Reaction Allergy Type Onset Date Status Substance with sulfonamide structure and antibacterial mechanism of action (substance) Sulfa Antibiotics Unknown Drug Allergy Active Reason For Referral No Information Medications Medication [...] Status Risk Notes Problem Colon cancer screening (384420894) Colon cancer screening (Z12.11) Active confirmed Problem Gastroesophageal reflux disease without esophagitis (155779679) Gastroesophageal reflux disease without esophagitis (K21.9) Active confirmed Problem Anemia (729051862) Anemia (D64.9) Active confir med Problem Gastroesophageal reflux disease (427494757) Chronic GERD (K21.9) Active confirmed Plan Of Treatment Future Test Test Name Order Date UPPER GI ENDOSCOPY 01/18/2024 COLONOSCOPY 01/18/2024 Insurance Providers Payer Name Payer Address Payer Phone Subscriber Number Group Number Insured Name Patient Relationship to Insured Coverage Start Date Coverage End Date [facility] [address] [address] [place], [place] [id number] MARTHA COHEN Self - patient is the insured Medical (General) History Medical History History ICD Code 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 Kdhx-jxetpuavk-Md. Sheth Psoriasis Denies [place],CVA,renal disease Seasonal asthma GERD HTN Surgical History Surgery Date(Month/Year) Hospitalization History Reason Date(Month/Year)
--- OUTSIDE RECORDS SUMMARY | 2025-06-06 12:01 | XMS_ITS | Clinical Summary ---
Author Organization [facility] Address [address] [address] Phone Care Team Providers Care Pharmacy Laboratory Technician Name Role Phone Unknown, Unknown Primary Care Provider Eugene edmonds Allergies Active Allergy Reactions Criticality Noted Date Comments Sulfa (Sulfonamide Antibiotics) Hives 02/2023 Medications MOUNJARO 7.5 mg/0.5 mL PnIj INJECT 7.5 MG (0.5 ML) SUBCUTANEOUSLY EVERY WEEK 3 Active lisinopril (PRINIVIL,ZEST RIL) 20 MG tablet TAKE 1 TABLET ORALLY DAILY FOR 90 DAYS 3 Active JARDIANCE 10 mg tablet Take 1 tablet by mouth every morning. 3 Active simvastatin (ZOCOR) 20 MG tablet 3 Active XARELTO 20 mg Tab TAKE 1 TABLET BY MOUTH EVERY EVENING WITH YOUR MEAL 3 Active omeprazole (PRILOSEC) 20 MG capsule Take 1 capsule by mouth every morning. 3 Active metFORMIN (GLUCOPHAGE) 1000 MG tablet Take 1 tablet by mouth 2 (two) times a day. 3 Active OTEZLA 30 mg tablet 3 Active FREESTYLE ADEOLA 3 SENSOR Eileen USE DIRECTED AND CHANGE EVERY 14 DAYS 3 Active ferrous sulfate 325 mg (65 mg brevig mission iron) tablet TAKE ONE TABLET ORALLY DAILY FOR 30 DAYS 3 Active BD VINNIE 2ND GEN PEN NEEDLE 32 gauge x Ndle USE TO TEST BLOOD 4 TIMES A DAY, DIRECTED. 90 DAYS 3 Active lidocaine 2 % Soln Use as directed 15 mL in the mouth or throat every 3 (three) hours as needed. Topically or swish and spit 480 mL 3 Active Active Problems Problem Noted Date Diagnosed Date Viral pharyngitis 08/17/2023 Social History Tobacco Use Types Packs/Day Years Used Date Smoking Tobacco: Never Smokeless Tobacco: Never Tobacco Cessation:Counseling Given: Not Answered Alcohol Use Standard Drinks/Week Comments Not Currently [...] on file Sexual Orientation Not on file Last Filed Vital Signs Vital Sign Reading Time Taken Comments Blood Pressure 159/84 08/17/2023 7:10 PM EST Pulse 99 08/17/2023 7:10 PM EST Temperature 36.5 C (97.7 F) 08/17/2023 7:10 PM EST Respiratory Rate 18 08/17/2023 7:10 PM EST Oxygen Saturation 100% 08/17/2023 7:10 PM EST Inhaled Oxygen Concentration - - Weight - - Height - - Body Mass Index - - Plan of Treatment Health Maintenance Due Date Last Done Comments Adult Td,Tdap Booster 1978 CREATININE LEVEL 1978 LIPID PANEL 1978 POTASSIUM LEVEL 1978 COVID-19 VACCINE (#1) 1983 DEPRESSION SCREENING 1990 HEPATITIS C SCREENING 1996 HIV ONE-TIME SCREENING (18-6 5 YEARS) 1996 PNEUMOCOCCAL VACCINES (0-49 years) (1 of 2 - PCV) 1997 PAP SMEAR 1999 MAMMOGRAM 2018 COLOGUARD 2023 COLONOSCOPY 2023 COLORECTAL CANCER SCREENING 2023 FIT TEST 2023 FOBT 2023 SIGMOIDOSCOPY 2023 VIRTUAL COLONOSCOPY 2023 INFLUENZA VACCINE (#1) 2025 SMOKING STATUS SCREENING (On ce After 26 Yrs) Completed 08/17/2023 HEPATITIS A VACCINES Aged Out No long er eligible based on patient's age to complete this topic HIB VACCINES Aged Out No longer eligi ble based on patient's age to complete this topic MENINGOCOCCAL VACCINES (ACWY) Aged Out No longer eligible based on patient's age to complete this topic MENINGOCOCCAL VACCINES (B) Aged Out N o longer eligible based on patient's age to complete this topic Medical Devices Not on file Insurance WELLSENSE NON NSPG PCP SILVER CLARITY CONNECTORCARE [place] NON NSPG PCP SILVER CLARITY CONNECTORCARE [place]ENSE NON NSPG PCP SILVER CLARITY CONNECTORCARE ENSE NON NSPG PCP SILVER CLARITY CONNECTORCARE ENSE NON NSPG PCP SILVER CLARITY CONNE[facility] [address] [place], [place] [id number] NON NSPG PCP SILVER CLARITY CONNECTORCARE [place] [id number] Care Teams Pharmacy Laboratory Technician Relationship Specialty Start Date End Date Unknown, Unknown, PCP - General 08/17/23 Additional Source Comments The information contained in this document represents components of the legal health record. It is not the complete legal health record.[facility]
--- OUTSIDE RECORDS SUMMARY | 2025-06-06 12:01 | XMS_ITS | Encounter Summary ---
Author Organization [facility] Address [address] [employer] [facility] [address] [place] [address] Phone Care Team Providers Care Radial Drill Press Set Up Operator Name Role Phone Unknown, Unknown Primary Care Provider Eugene edmonds Encounter Details Date Type Department Care Team (Late st Contact Info) Description 08/18/2023 Transcribe Orders [facility] Specimen Processing [address] [place] [address] Unknown, Unknown, Social History Tobacco Use Types [...] on filedocumented in this encounter Care Teams Radial Drill Press Set Up Operator Relationship Specialty Start Date End Date Unknown, Unknown, PCP - General 08/17/23 documented as of this encounter Additional Source Comments The information contained in this document represents components of the legal health record. It is not the complete legal health record.[facility]
== END 2025-06-06 10:21 | disposition home or self-care (01) ==
LOC: HO.HVS 09:59
PROVIDERS: PCP Family Medicine; Visit Provider Surgery Vascular Surgery
DX: I73.9 Peripheral vascular disease, unspecified (principal)
CPT/HCPCS: 99214

== ENCOUNTER → 2025-06-06 09:58 | Outpatient (BNVA) | payer OTHER, SELFPAY | PROVIDERS: PCP Family Medicine; Visit Provider Surgery Vascular Surgery | DX: E11.9 Type 2 diabetes mellitus without complications (principal); I73.9 Peripheral vascular disease, unspecified | CPT/HCPCS: 99212 ==

== ENCOUNTER 2025-06-25 07:32 | Outpatient (REF) | payer OTHER, SELFPAY ==
--- OUTSIDE RECORDS SUMMARY | 2024-05-07 08:00 | XMS_ITS ---
Author Organization [facility] Address [address] [place] [phone] Care Team Providers Care Plan Consultant Name Role Phone Etienne Monge Primary Care Provider Unavailab Michele Casey Unavailable [phone] Lit Chen Unavailable Unavailable Problems Problem Type SNOMED Code ICD Code Onset Dates Problem Status W/U Status Risk Notes Problem Gastroesophageal reflux disease without esophagitis (659375465) Gastroesophageal reflux disease without esophagitis (K21.9) Active confirmed Encounters Encounter Location Date Provider Diagnosis [facility] [place] [address] [place], [place] [phone] 05/07/2024 Michele Goldman Colon cancer screeni ng [...] * MARTHA COHENDOB: 9 (44 yo F)Acc No.[id number]:05/07/2024 EGD and COL/MAC Patient: MARTHA WELLER Provider: Elpidio Goldman MD :1980 A ge:43 Y S ex:Female Date:05/07/2024 Address:[address] [place], [place] [phone] Pcp:Etienne Monge Subjective: * Chief Complaints: * * Medical History: Objective: * Vitals: Assessment: * Assessment: 1. C olon cancer screening - Z12.11 (Primary) 2 . O ther hemorrhoids - K64.8 3 . G astroesophageal reflux disease without esophagitis - K21.9 ?4. H iatal hernia - K44.9 Plan: * Treatment: * Procedure Codes: 4 5378 DIAGNOSTIC COLONOSCOPY, 95245 UPPER GI ENDOSCOPY, BIOPSY * * The named appointment provid er may or may not be the originator of this progress note, and it is not deemed complete until electronically signed by the appointment provider. Sign off status: Pending * Provider: Elpidio Goldman MD Date: 0 05/07/2024 Generated for Juan Jose polo/Jameel/Almassmitting on: 1 07:35 AM EDT
--- OUTSIDE RECORDS SUMMARY | 2025-06-25 07:35 | XMS_ITS | Encounter Summary ---
Author Organization [facility] Address [address] [employer] [facility] [address] [place] [phone] Phone Care Team Providers Care A/C Technician Name Role Phone Unknown, Unknown Primary Care Provider Eugene edmonds Encounter Details Date Type Department Care Team (Late st Contact Info) Description 08/18/2023 Transcribe Orders [facility] Specimen Processing [address] [place] [address] Unknown, Unknown, Social History Tobacco Use Types [...] on filedocumented in this encounter Care Teams A/C Technician Relationship Specialty Start Date End Date Unknown, Unknown, PCP - General 08/17/23 documented as of this encounter Additional Source Comments The information contained in this document represents components of the legal health record. It is not the complete legal health record.[facility]
--- OUTSIDE RECORDS SUMMARY | 2025-06-25 07:35 | XMS_ITS | Clinical Summary ---
Author Organization [facility] Address [address] [address] Phone Care Team Providers Care Electrician Office Name Role Phone Unknown, Unknown Primary Care [...] Active ferrous sulfate 325 mg (65 mg chitimacha iron) tablet TAKE ONE TABLET ORALLY DAILY [...] WELLSENSE NON NSPG PCP SILVER CLARITY CONNECTORCARE [place] NON NSPG PCP SILVER CLARITY CONNECTORCARE WELLSENSE NON NSPG PCP SILVER CLARITY CONNECTORCARE ENSE NON NSPG PCP SILVER CLARITY CONNECTORCARE ENSE NON NSPG PCP SILVER CLARITY CONNECTORCARE [address] [place], [place] [id number] NON NSPG PCP SILVER CLARITY CONNECTORCARE [place] [id number] Care Teams Electrician Office Relationship Specialty Start Date End Date Unknown, Unknown, PCP - General 08/17/23 Additional Source Comments The information contained in this document represents components of the legal health record. It is not the complete legal health record.[facility]
--- OUTSIDE RECORDS SUMMARY | 2025-06-25 07:35 | XMS_ITS | Patient Health Record ---
Author Organization [facility] Address [address] [place] [phone] Care Team Providers Care Product Representative Name Role Phone Etienne Monge Primary Care Provider Unavailab Michele Casey Unavailable [phone] Lit Chen Unavailable Unavailable Allergies Allergen (clinical drug ingredient) Drug/Non Drug Allergy documented on EMR Reaction Allergy Type Onset Date Status Substance with sulfonamide structure and antibacterial mechanism of action (substance) Sulfa Antibiotics Unknown Drug Allergy Active Reason For Referral No Information Medications Medication SIG (Take, Route, Frequency, Duration) Notes Start Date End Date Status Ozempic (1 MG/DOSE) 4 MG/3ML Subcutaneous; Duration: 28 Active Omeprazole 20 MG Oral; Duration: 90 Active Dulcolax (colon prep) 5 MG Take 2 tablet s 2 days before the colonoscopy, and then take at 3:00 p.m and 7:00p.m. Orally Two tablets two days before the colonoscopy, and then two tablets twice a day for one day; Duration: 2 days 01/26/2024 Active Otezla 30 MG Oral; Duration: 30 Active MiraLax (colon prep) 17 GM/SCOOP 1 238Gm bottle mixed with Gatorade or Crystal Light Orally begin at 5:00 p.m. the day before the procedure; Duration: 1 day 01/26/2024 Active Jardiance 10 MG Oral; Duration: 30 Active metFORMIN HCl 1000 MG TAKE 1 TABLET BY M OUTH TWICE A DAY Oral; Duration: 90 Active Ferrous Sulfate 325 (65 Fe) MG TAKE 1 TABLET BY MOUTH EVERY DAY Oral; Duration: 30 Active Cetirizine HCl 10 MG TAKE 1 TABLET BY MO UTH DAILY FOR 30 DAYS Oral; Duration: 90 Active Simvastatin 20 MG Oral; Duration: 90 Active FreeStyle Georgette 3 Sensor - ; Duration: 28 Active Lisinopril 20 MG Oral; Duration: 67 Active Xarelto 20 MG Oral; Duration: 90 Active Immunizations Vaccine Route Administration Date [...] Status Risk Notes Problem Colon cancer screening (858456468) Colon cancer screening (Z12.11) Active confirmed Problem Gastroesophageal reflux disease without esophagitis (520518457) Gastroesophageal reflux disease without esophagitis (K21.9) Active confirmed Problem Anemia (784649638) Anemia (D64.9) Active confir med Problem Gastroesophageal reflux disease (disorder) (681394643) Chronic GERD (K21.9) Active confirmed Plan Of Treatment Future Test Test Name Order Date UPPER GI ENDOSCOPY 01/18/2024 COLONOSCOPY 01/18/2024 Insurance Providers Payer Name Payer Address Payer Phone Subscriber Number Group Number Insured Name Patient Relationship to Insured Coverage Start Date Coverage End Date [facility] [address] [address] [place], [place] [id number] MARTHA COHEN Self - patient is the insured Medical (General) History Medical History History ICD Code 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 Riqm-cfkopgmoy-Fw. Sheth Psoriasis Denies [place],CVA,renal disease Seasonal asthma GERD HTN Surgical History Surgery Date(Month/Year) Hospitalization History Reason Date(Month/Year)
[2025-06-25 12:41] LABS: Alanine Aminotransferase 37 U/L (0-31); Albumin Level 4.4 g/dL (3.5-5.0); Alkaline Phosphatase 100 U/L (39-117); Anion Gap 14 (12-20); Aspartate Amino Transferase 35 U/L (5-31); Blood Urea Nitrogen 12 mg/dL (9-16); Calcium 9.6 mg/dL (8.4-10.2); Carbon Dioxide 26 mmol/L (22-29); Chloride 104 mmol/L (96-108); Cholesterol 184 mg/dL (<200); Estimated Glomerular Filt Rate > 60; HDL Cholesterol 43 mg/dL (>40); Potassium 4.3 mmol/L (3.3-5.1); Sodium 140 mmol/L (135-145); Total Protein 7.5 g/dL (6.5-8.0); Triglycerides 243 mg/dL (<150)
== END 2025-06-25 07:33 | disposition home or self-care (01) ==
LOC: HO.WFDLDS 07:32
PROVIDERS: Visit Provider Family Medicine
DX: Z00.00 Encounter for general adult medical examination without abnormal findings (principal); E08.319 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 due to underlying condition with unspecified diabetic retinopathy without macular edema; E78.00 Pure hypercholesterolemia, unspecified
CPT/HCPCS: 36415; 80053; 80061; 83036

== ENCOUNTER 2025-06-28 10:38 | Outpatient (AMB) | payer OTHER, SELFPAY ==
--- NOTE | 2025-06-28 10:44 | A.OFFPC_ITS ---
Vital Signs 06/28/25 10:48 Height 5 ft 2 in Weight 177 lb 8 oz BMI 32.5 BP 106/64 Blood Pressure Location Lt brachial Position Sitting Respiration 12 Pulse 101 H Pulse Source Pulse Oximeter Temp 97.2 F Temp Source Temporal Artery Scan Pulse Oximetry (%) 98 Oxygen Delivery Method Room Air Intake Visit Reasons: diabetes Intake Note: Pooja presents in the office today for a follow up to diabetes. Allergies Sulfa (Sulfonamide Antibiotics) Allergy (Intermediate, Verified 06/28/25 10:47) rash on face. Medication List - Last Reconciled 06/28/25 by Etienne Monge MD apremilast (Otezla) 30 mg PO BID atorvastatin 80 mg PO DAILY 90 days blood-glucose sensor (Adenovir PharmaStyle Georgette 3 Sensor device) As directed change every 14 days cetirizine 10 mg PO DAILY clobetasol 0.05% 1 appl topical BID dulaglutide (Trulicity) 4.5 mg (0.5 mL) subcut QWEEK empagliflozin 25 mg PO DAILY 90 days ferrous sulfate 325 mg PO DAILY levalbuterol tartrate 45 mcg/actuation 2 puffs inhalation Q4-6H PRN 30 days lisinopril 20 mg PO DAILY 90 days meclizine 25 mg PO DAILY PRN 10 days metformin 1,000 mg PO BID 90 days omeprazole 20 mg PO DAILY 90 days rivaroxaban (Xarelto) 20 mg PO QPM Tobacco use date assessed: 06/28/25 Dental Screening Dental Screen Date: 06/28/25 Did you have a dental visit in the last 12 months?: No Did you have a dental problem in the last 6 months where you did not have access to dental care?: No Was dental information given to patient?: Patient declined HPI diabetes HPI Details 44 y/o female presents to f/u diabetes, lipids. Had increased her Trulicity and she notes she has received this. She is also on metformin 1000mg b.i.d, empagliflozin 25mg daily. Prior A1c 7.6%. A1c today 06/28/25 7.5%. Had increased her artovastatin but LDL cholesterol had increased from 82 to 93. [facility] Medical History Diabetes Anemia Adhesive capsulitis of both shoulders Vertigo High cholesterol Surgical History No history of previous surgery Family History Mother Diabetes Family history of thyroid problem Father No known health problems Maternal Grandmother Diabetes Paternal Grandmother Diabetes Maternal Grandfather Substance abuse in family Brother Substance abuse in family Mental health disorder Paternal Uncle Mental health disorder Family/Other Colon cancer Social History (Updated 06/28/25 @ 10:48 by Veena Ledesma CMA) Household Members: Significant Other Household Members Other:: boyfriend Housing: Apartment Alcohol intake: never Patient Tobacco Use Status: Never used Tobacco e-Cigarette/Vaping Use: Never Used Second Hand Smoke Exposure: No service: No Current occupational status: employed Current occupation: [employer] Current occupational exposures/hazards: No Cognitive needs: No Hearing needs: No Vision needs: No Female Reproductive History Menstrual Age of Menarche: 12 Questionnaire Thrive Questionnaire Date Thrive assessed: 09/22/24 I am a: Patient What is your living situation today?: I have a steady place to live Within the past 12 months, did the food you bought not last and you didn't have the money to get more?: Never true Within the past 12 months, did you worry whether your food would run out before you got money to buy more?: Never true Do you have trouble paying for medicines?: No Do you have trouble getting transportation to medical appointments?: No Do you have trouble paying your heating and electricity bill?: No Do you have trouble taking care of your child, family member or friend?: No Do you have trouble with day-to-day activities such as bathing, preparing meals, shopping, managing finances, etc.?: No Are you currently unemployed and looking for a job?: Yes Are you interested in more education?: No Please select the resources that you would like help with: None Currently or been in a relationship where the following occur: No concerns reported THRIVE Score: 0 JAZMIN-7 AMB Questionnaire JAZMIN-7 Date JAZMIN - 7 assessed: 06/25/24 Source: Developed by Drs. Michele Mariee, Samantha Cano, Juan Luis Goetz and colleagues, with an educational jalyn from [employer]. Review of Systems Const Denies chills, Denies fatigue, Denies fever(s), Denies headache(s) and Denies weakness ENT Denies dizziness and Denies headache(s) Card Denies chest pain, Denies lightheadedness, Denies dyspnea and Denies other (Palpitations) Resp Denies cough, Denies dyspnea, Denies wheezing and Denies other ( shortness of breath) Musc Denies numbness and Denies tingling Neuro Denies dizziness, Denies headache(s), Denies numbness, Denies tingling, Denies paresthesias and Denies weakness Psych Denies anxiety and Denies depression Endo Denies fatigue Aller/Immun Denies wheezing Physical exam (Primary Care) Vital Signs: Last Vital Signs Temp 97.2 F 06/28/25 10:48 Pulse 101 H 06/28/25 10:48 Resp 12 06/28/25 10:48 BP 106/64 06/28/25 10:48 Pulse Ox 98 06/28/25 10:48 Oxygen Delivery Method Room Air 06/28/25 10:48 BMI result Body Mass Index 32.5 Tobacco/Smoking Status: Tobacco use Status Tobacco use date assessed 06/28/25 06/28/25 10:51 Patient Tobacco Use Status Never used Tobacco 06/28/25 10:48 e-Cigarette/Vaping Use Never Used 06/28/25 10:48 Thrive Assessment: Date of Thrive Assessment Date Thrive assessed 09/22/24 06/28/25 10:46 Currently or been in a relationship where the following occur: No concerns reported Const General: no acute distress and well developed Nutritional Appearance: well nourished Orientation/consciousness: patient oriented x3 [facility] Head: Yes normocephalic and Yes atraumatic Eyes General: appearance normal, both eyes and all related structures Pupils: Equal, round and reactive pupils present EOM: EOMs intact bilaterally Resp Effort & Inspection: normal respiratory effort Auscultation: clear to auscultation bilaterally Cardio Rate: regular rate Rhythm: regular rhythm Heart sounds: S1 normal heart sound present, S2 normal heart sound present, no gallops, no murmurs and no rubs Neuro General: patient oriented x3 and gait normal Cranial nerves: Yes Equal, round and reactive pupils present Psych Affect: normal affect Coding Level of Care Code Est Pt Level 4 (41318) Diagnoses 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 due to underlying condition with retinopathy, macular edema presence unspecified, unspecified laterality, unspecified retinopathy severity, unspecified whether alf insulin use E08.319 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 complication detail: with diabetic retinopathy 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 complication status: with ophthalmic complications 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 truck 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 use: unspecified alf insulin use status 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 macular edema: macular edema presence unspecified 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 type: due to underlying condition Diabetic retinopathy severity: with unspecified retinopathy severity Laterality: unspecified laterality High cholesterol E78.00 PAD (peripheral artery disease) I73.9 Assessment & Plan Assessment & Plan (1) Diabetes: Code(s): E11.9 - Type 2 diabetes mellitus without complications Category: Medical Qualifiers: 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 complication detail: with diabetic retinopathy 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 complication status: with ophthalmic complications 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 truck 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 use: unspecified truck 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 use status 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 macular edema: macular edema presence unspecified 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 type: due to underlying condition Diabetic retinopathy severity: with unspecified retinopathy severity Laterality: unspecified laterality Qualified Code(s): E08.319 - 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 due to underlying condition with unspecified diabetic retinopathy without macular edema Plan: A1c only slightly improved with increase in Trulicity Will increase metformin from 1000 mg b.i.d. to 850 mg t.i.d. Continue Trulicity and Jardiance as prescribed Work on diabetic diet (2) High cholesterol: Code(s): E78.00 - Pure hypercholesterolemia, unspecified Category: Medical Plan: LDL cholesterol actually increased with an increase in atorvastatin. Likely dietary Work on diet as discussed. Patient also has peripheral arterial disease Working on goal of LDL cholesterol less than 70 Switching atorvastatin to Crestor (3) PAD (peripheral artery disease): Code(s): I73.9 - Peripheral vascular disease, unspecified Category: Medical Plan She will return in 3 months follow-up diabetes and hyperlipidemia Orders: Orders Lipid Panel 06/28/25 Z00.00 - Encounter for general adult medical examination without abnormal findings Comprehensive [place]. Panel Fast Today Z00.00 - Encounter for general adult medical examination without abnormal findings Hemoglobin A1c Today R73.01 - Impaired fasting glucose Comprehensive [place]. Panel Fast 06/28/25 Z00.00 - Encounter for general adult medical examination without abnormal findings LDL Cholesterol Direct Today E78.5 - Hyperlipidemia, unspecified Medications: New rosuvastatin 40 mg PO DAILY 90 tabs 3RF 90 days Changed From metformin 1,000 mg PO BID 90 days 180 tabs 1RF To metformin 850 mg PO TID 270 tabs 3RF 90 days Discontinued atorvastatin Discontinued Reason: Doctor's Order 80 mg PO DAILY 90 days 90 tabs 3RF E78.00 - Pure hypercholesterolemia, unspecified
[2025-06-28 10:48] VITALS: BP 106/64; PULSE 101; RESP 12; TEMP 36.2; O2SAT 98; BMI 32.5
== END 2025-06-28 11:49 | disposition home or self-care (01) ==
LOC: HO.HMCFM 10:39
PROVIDERS: PCP Family Medicine; Visit Provider Family Medicine
DX: E78.00 Pure hypercholesterolemia, unspecified (principal); E08.319 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 due to underlying condition with unspecified diabetic retinopathy without macular edema; I73.9 Peripheral vascular disease, unspecified

== ENCOUNTER → 2025-06-28 10:38 | Outpatient (BNVA) | payer OTHER, SELFPAY | PROVIDERS: PCP Family Medicine; Visit Provider Family Medicine | DX: E78.00 Pure hypercholesterolemia, unspecified (principal); E08.319 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 due to underlying condition with unspecified diabetic retinopathy without macular edema; E08.51 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 due to underlying condition with diabetic peripheral angiopathy without gangrene | CPT/HCPCS: 99212 ==

== ENCOUNTER 2025-08-28 09:55 | Outpatient (REF) | payer OTHER, SELFPAY ==
--- OUTSIDE RECORDS SUMMARY | 2024-05-07 07:00 | XMS_ITS ---
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 Name Role Phone Etienne Monge Primary Care Provider Unavailab Michele Casey Unavailable [phone] Lit Chen Unavailable Unavailable Problems Problem Type SNOMED Code ICD Code Onset Dates Problem Status W/U Status Risk Notes Problem Gastroesophageal reflux disease without esophagitis (352073864) Gastroesophageal reflux disease without esophagitis (K21.9) Active confirmed Encounters Encounter Location Date Provider Diagnosis [facility] [place] [address] [place], [place] [phone] 05/07/2024 Michele Goldman Colon cancer screeni ng [...] * MARTHA COHENDOB: 9 (44 yo F)Acc No.[id number]:05/07/2024 EGD and COL/MAC Patient: MARTHA WELLER Provider: Elpidio Goldman MD :1980 A ge:43 Y S ex:Female Date:05/07/2024 Address:[address] [place], [place] [phone] Pcp:Etienne Monge Assessment: * Assessment: 1. C olon cancer screening - Z12.11 (Primary) 2 . O ther hemorrhoids - K64.8 3 . G astroesophageal reflux disease without esophagitis - K21.9 ?4. H iatal hernia - K44.9 Plan: * Procedure Codes: 4 5378 DIAGNOSTIC [id number] UPPER GI ENDOSCOPY, BIOPSY Billing Information: * Procedure Codes: 22842 DIAGNOSTIC COLONOSCOPY. 77502 UPPER GI ENDOSCOPY, BIOPSY. * The named appointment provid er may or may not be the originator of this progress note, and it is not deemed complete until electronically signed by the appointment provider. Sign off status: Pending * Provider: Elpidio Goldman MD Date: 0 05/07/2024 Generated for Juan Jose polo/Jameel/Almassmitting on: 1 10/29/2024 11:55 AM EST
[2025-08-28 11:52] LABS: Alanine Aminotransferase 33 U/L (0-31); Albumin Level 4.2 g/dL (3.5-5.0); Alkaline Phosphatase 79 U/L (39-117); Anion Gap 11 (12-20); Aspartate Amino Transferase 39 U/L (5-31); Blood Urea Nitrogen 12 mg/dL (9-16); Calcium 9.3 mg/dL (8.4-10.2); Carbon Dioxide 25 mmol/L (22-29); Chloride 105 mmol/L (96-108); Cholesterol 118 mg/dL (<200); Estimated Glomerular Filt Rate > 60; HDL Cholesterol 36 mg/dL (>40); Potassium 4.3 mmol/L (3.3-5.1); Sodium 137 mmol/L (135-145); Total Protein 7.1 g/dL (6.5-8.0); Triglycerides 154 mg/dL (<150)
--- OUTSIDE RECORDS SUMMARY | 2025-08-28 11:55 | XMS_ITS | Patient Health Record ---
Author Organization [facility] Address [address] [place] [id number] Care Team Providers Care Account Consultant Name Role Phone Etienne Monge Primary Care Provider Unavailab Michele Casey Unavailable [phone] Lit Chen Unavailable Unavailable Allergies Allergen (clinical drug ingredient) Drug/Non Drug Allergy documented on EMR Reaction Allergy Type Onset Date Status Substance with sulfonamide structure and antibacterial mechanism of action (substance) Sulfa Antibiotics Unknown Drug Allergy Active Reason For Referral No Information Medications Medication SIG (Take, Route, Frequency, Duration) Notes Start Date End Date Status Ozempic (1 MG/DOSE) 4 MG/3ML Solution Pen-injector Subcutaneous; Duration: 28 Active Omeprazole 20 MG Capsule Delayed Release Oral; Duration: 90 Active Dulcolax (colon prep) 5 MG Tablet Delayed Release Take 2 tablets 2 days before the colonoscopy, and then take at 3:00 p.m and 7:00p.m. Orally Two tablets two days before the colonoscopy, and then two tablets twice a day for one day; Duration: 2 days 01/26/2024 Active Otezla 30 MG Tablet Oral; Duration: 30 Active MiraLax (colon prep) 17 GM/SCOOP Powder 1 238Gm bottle mixed with Gatorade or Crystal Light Orally begin at 5:00 p.m. the day before the procedure; Duration: 1 day 01/26/2024 Active Jardiance 10 MG Tablet Oral; Duration: 30 Active metFORMIN HCl 1000 MG Tablet TAKE 1 TABL ET BY MOUTH TWICE A DAY Oral; Duration: 90 Active Ferrous Sulfate 325 (65 Fe) MG Tablet TAKE 1 TABLET BY MOUTH EVERY DAY Oral; Duration: 30 Active Cetirizine HCl 10 MG Tablet TAKE 1 TABLE T BY MOUTH DAILY FOR 30 DAYS Oral; Duration: 90 Active Simvastatin 20 MG Tablet Oral; Duration: 90 Active FreeStyle Georgette 3 Sensor - Miscellaneous ; Duration: 28 Active Lisinopril 20 MG Tablet Oral; Duration: 67 Active Xarelto 20 MG Tablet Oral; Duration: 90 Active Immunizations Vaccine Route Administration Date Status Comme nts Influenza Unknown 01/18/2024 Refused Social History Tobacco Use: Social History Observation Description Date Details (start date - stop date) Never Smoker NA - NA Social History Drugs/Alcohol: Social Info Question Answer Notes Alcohol Screen Did you have a drink containing alcohol in the past year? 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 [employer] Section Notes: Nonsmoker; no sig alcohol Problems Problem Type SNOMED Code ICD Code Onset Dates Problem Status W/U Status Risk Notes Problem Colon cancer screening (144891106) Colon cancer screening (Z12.11) Active confirmed Problem Gastroesophageal reflux disease without esophagitis (838666152) Gastroesophageal reflux disease without esophagitis (K21.9) Active confirmed Problem Anemia (157841630) Anemia (D64.9) Active confir med Problem Gastroesophageal reflux disease (disorder) (343536705) Chronic GERD (K21.9) Active confirmed Plan Of Treatment Future Test Test Name Order Date UPPER GI ENDOSCOPY 01/18/2024 COLONOSCOPY 01/18/2024 Insurance Providers Payer Name Payer Address Payer Phone Subscriber Number Group Number Insured Name Patient Relationship to Insured Coverage Start Date Coverage End Date [facility] [address] [address] [place], [place] [id number] MARTHA COHEN Self - patient is the insured Medical (General) History Medical History History ICD Code 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 Slaz-[id number]-Ii. [place] Psoriasis Denies MA,CVA,renal disease Seasonal asthma GERD HTN Surgical History Surgery Date(Month/Year) Hospitalization History Reason Date(Month/Year)
--- OUTSIDE RECORDS SUMMARY | 2025-08-28 11:55 | XMS_ITS | Encounter Summary ---
Author Organization [facility] Address [address] [facility] [address] [place] [phone] Phone Care Team Providers Care Anesthesiologist/Physician Name Role Phone Unknown, Unknown Primary Care Provider Eugene edmonds Encounter Details Date Type Department Care Team (Late st Contact Info) Description 08/18/2023 Transcribe Orders [facility] Specimen Processing [address] [place] [address] Unknown, Unknown, Social History Tobacco Use Types [...] on filedocumented in this encounter Care Teams Anesthesiologist/Physician Relationship Specialty Start Date End Date Unknown, Unknown, PCP - General 08/17/23 documented as of this encounter Additional Source Comments The information contained in this document represents components of the legal health record. It is not the complete legal health record.[facility]
--- OUTSIDE RECORDS SUMMARY | 2025-08-28 11:56 | XMS_ITS | Clinical Summary ---
Author Organization [facility] Address [address] [address] Phone Care Team Providers Care Baby Sitter Name Role Phone Unknown, Unknown Primary Care [...] Active ferrous sulfate 325 mg (65 mg [place] iron) tablet TAKE ONE TABLET ORALLY DAILY [...] WELLSENSE NON NSPG PCP S[facility]VER CLARITY CONNECTORCARE [place] P[place]ENSE NON NSPG PCP SILVER CLARITY CONNECTORCARE WELLSENSE NON NSPG PCP SILVER CLARITY CONNECTORCARE ENSE NON NSPG PCP SILVER CLARITY CONNECTORCARE ENSE NON NSPG PCP S[facility] CLAR[facility] CONNE[facility] [address] [place] [address]ENSE NON NSPG PCP [facility] [place] [phone] Care Teams Baby Sitter Relationship Specialty Start Date End Date Unknown, Unknown, PCP - General 08/17/23 Additional Source Comments The information contained in this document represents components of the legal health record. It is not the complete legal health record.[facility]
== END 2025-08-28 09:56 | disposition home or self-care (01) ==
LOC: HO.WFDLDS 09:55
PROVIDERS: Visit Provider Family Medicine
DX: Z00.00 Encounter for general adult medical examination without abnormal findings (principal); R73.01 Impaired fasting glucose; E78.5 Hyperlipidemia, unspecified
CPT/HCPCS: 36415; 80053; 80061; 83036; 83721

== ENCOUNTER 2025-09-02 10:36 | Outpatient (AMB) | payer OTHER, SELFPAY ==
--- OUTSIDE RECORDS SUMMARY | 2024-05-07 07:00 | XMS_ITS ---
Author Organization [facility] Address [address] [place] [id number] Care Team Providers Care Tour Driver Name Role Phone Etienne Monge Primary Care Provider Unavailab Michele Casey Unavailable [phone] Lit Chen Unavailable Unavailable Problems Problem Type SNOMED Code ICD Code Onset Dates Problem Status W/U Status Risk Notes Problem Gastroesophageal reflux disease without esophagitis ([id number]) Gastroesophageal reflux disease without esophagitis (K21.9) Active confirmed Encounters Encounter Location Date Provider Diagnosis [facility] [address] [place], [place] [id number] 05/07/2024 Michele Goldman Colon cancer screeni ng Z12.11 ; Other hemorrhoids K64.8 ; Gastroesophageal reflux disease without esophagitis K21.9 and Hiatal hernia K44.9 Assessments Encounter Date Diagnosis (ICD Code) Assessment Notes Treatment Notes Treatment Clinical Notes Section Notes 05/07/2024 Colon cancer screening (ICD-10 - Z12.11) 05/07/2024 Other hemorrhoids (ICD-10 - K64.8) 05/07/2024 Gastroesophageal reflux disease without esophagitis (ICD-10 - K21.9) 05/07/2024 Hiatal hernia (ICD-10 - K44.9) Plan Of Treatment No Information Progress Notes * MARTHA COHENDOB: 9 (44 yo F)Acc No.[id number]:05/07/2024 EGD and COL/MAC Patient: MARTHA WELLER Provider: Elpidio Goldman MD :1980 A ge:43 Y S ex:Female Date:05/07/2024 Address:[address] [place], [place] [id number] Pcp:Etienne Monge Assessment: * Assessment: 1. C olon cancer screening - Z12.11 (Primary) 2 . O ther hemorrhoids - K64.8 3 . G astroesophageal reflux disease without esophagitis - K21.9 ?4. H iatal hernia - K44.9 Plan: * Procedure Codes: 4 5378 DIAGNOSTIC [id number] UPPER GI ENDOSCOPY, BIOPSY Billing Information: * Procedure Codes: 30768 DIAGNOSTIC COLONOSCOPY. 59719 UPPER GI ENDOSCOPY, BIOPSY. * The named appointment provid er may or may not be the originator of this progress note, and it is not deemed complete until electronically signed by the appointment provider. Sign off status: Pending * Provider: Elpidio Goldman MD Date: 0 05/07/2024 Generated for Juan Jose polo/Jameel/Almassmitting on: 1 11/03/2024 01:03 PM EST
--- NOTE | 2025-09-02 10:41 | MHC.PC.OV ---
Vital Signs 09/02/25 10:48 Height 5 ft 2 in Weight 183 lb BMI 33.5 BP 136/63 Blood Pressure Location Lt brachial Position Sitting Respiration 16 Pulse 86 Pulse Source Pulse Oximeter Temp 97.9 F Temp Source Oral Pulse Oximetry (%) 100 Oxygen Delivery Method Room Air Intake Visit Reasons: f/u diabete, HLD Intake Note: patient here for DM follow up and HLD Human Factors Specialist Required: No Is last menstrual period known: No (not since december) Post menopausal: No Patient : No Allergies Sulfa (Sulfonamide Antibiotics) Allergy (Intermediate, Verified 09/02/25 10:45) rash on face. Medication List - Last Reconciled 09/02/25 by Etienne Monge MD blood-glucose sensor (EasyRun Georgette 3 Sensor device) As directed change every 14 days cetirizine 10 mg PO DAILY clobetasol 0.05% 1 appl topical BID dulaglutide (Trulicity) 4.5 mg (0.5 mL) subcut QWEEK empagliflozin 25 mg PO DAILY 90 days ferrous sulfate 325 mg PO DAILY levalbuterol tartrate 45 mcg/actuation 2 puffs inhalation Q4-6H PRN 30 days lisinopril 20 mg PO DAILY 90 days meclizine 25 mg PO DAILY PRN 10 days metformin 850 mg PO TID 90 days omeprazole 20 mg PO DAILY 90 days risankizumab-rzaa (Skyrizi) 150 mg subcut Q12W rivaroxaban (Xarelto) 20 mg PO QPM rosuvastatin 40 mg PO DAILY 90 days Tobacco use date assessed: 09/02/25 Dental Screening Dental Screen Date: 09/02/25 Did you have a dental visit in the last 12 months?: No Did you have a dental problem in the last 6 months where you did not have access to dental care?: No Was dental information given to patient?: No HPI f/u diabete, HLD HPI Details 44 y/o female presents to f/u diabetes, HLD. A1c improved from 7.5% to 7.1% She is maxed out on metformin, Jardiance and Trulicity. Encouraged exercise. Continue current medications Encouraged weight loss LDL cholesterol is controlled with rosuvastatin Offered to refer her to the weight loss management center but she declines this. [facility] Medical History Diabetes Anemia Adhesive capsulitis of both shoulders Vertigo High cholesterol Surgical History No history of previous surgery Family History Mother Diabetes Family history of thyroid problem Father No known health problems Maternal Grandmother Diabetes Paternal Grandmother Diabetes Maternal Grandfather Substance abuse in family Brother Substance abuse in family Mental health disorder Paternal Uncle Mental health disorder Family/Other Colon cancer Social History (Updated 06/28/25 @ 10:48 by Veena Ledesma CMA) Household Members: Significant Other Household Members Other:: boyfriend Housing: Apartment Alcohol intake: never Patient Tobacco Use Status: Never used Tobacco e-Cigarette/Vaping Use: Never Used Second Hand Smoke Exposure: No service: No Current occupational status: employed Current occupation: [employer] Current occupational exposures/hazards: No Cognitive needs: No Hearing needs: No Vision needs: No Female Reproductive History Menstrual Age of Menarche: 12 Questionnaire Thrive Questionnaire Date Thrive assessed: 09/22/24 I am a: Patient What is your living situation today?: I have a steady place to live Within the past 12 months, did the food you bought not last and you didn't have the money to get more?: Never true Within the past 12 months, did you worry whether your food would run out before you got money to buy more?: Never true Do you have trouble paying for medicines?: No Do you have trouble getting transportation to medical appointments?: No Do you have trouble paying your heating and electricity bill?: No Do you have trouble taking care of your child, family member or friend?: No Do you have trouble with day-to-day activities such as bathing, preparing meals, shopping, managing finances, etc.?: No Are you currently unemployed and looking for a job?: Yes Are you interested in more education?: No Currently or been in a relationship where the following occur: No concerns reported THRIVE Score: 0 JAZMIN-7 AMB Questionnaire JAZMIN-7 Date JAZMIN - 7 assessed: 06/25/24 Source: Developed by Drs. Michele Mariee, Samantha Cano, Juan Luis Goetz and colleagues, with an educational jalyn from [employer]. Review of Systems Const Denies chills, Denies fatigue, Denies fever(s), Denies headache(s) and Denies weakness ENT Denies dizziness and Denies headache(s) Card Denies dyspnea Resp Denies cough, Denies dyspnea, Denies wheezing and Denies other (shortness of breath) Musc Denies numbness and Denies tingling Neuro Denies dizziness, Denies headache(s), Denies numbness, Denies tingling and Denies weakness Psych Denies anxiety and Denies depression Endo Denies fatigue Aller/Immun Denies wheezing Physical exam (Primary Care) Vital Signs: Last Vital Signs Temp 97.9 F 09/02/25 10:48 Pulse 86 09/02/25 10:48 Resp 16 09/02/25 10:48 BP 136/63 09/02/25 10:48 Pulse Ox 100 09/02/25 10:48 Oxygen Delivery Method Room Air 09/02/25 10:48 BMI result Body Mass Index 33.5 Tobacco/Smoking Status: Tobacco use Status Tobacco use date assessed 09/02/25 09/02/25 10:51 Patient Tobacco Use Status Never used Tobacco 09/02/25 10:42 e-Cigarette/Vaping Use Never Used 09/02/25 10:42 Thrive Assessment: Date of Thrive Assessment Date Thrive assessed 09/22/24 09/02/25 10:42 Currently or been in a relationship where the following occur: No concerns reported Const General: well developed; No acute distress Nutritional Appearance: well nourished Orientation/consciousness: [facility]: Yes normocephalic and Yes atraumatic Eyes General: appearance normal, both eyes and all related structures Pupils: Equal, round and reactive pupils present EOM: EOMs intact bilaterally Resp Effort & Inspection: normal respiratory effort Neuro General: patient oriented x3 and gait normal Cranial nerves: Yes Equal, round and reactive pupils present Psych Affect: normal affect Coding Level of Care Code Est Pt Level 4 (01425) Diagnoses 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 due to underlying condition with retinopathy, macular edema presence unspecified, unspecified laterality, unspecified retinopathy severity, unspecified whether terminal system operator insulin use E08.319 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 complication detail: with diabetic retinopathy 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 complication status: with ophthalmic complications 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 longterm insulin use: unspecified terminal system operator insulin use status 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 macular edema: macular edema presence unspecified 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 type: due to underlying condition Diabetic retinopathy severity: with unspecified retinopathy severity Laterality: unspecified laterality High cholesterol E78.00 Hypertension due to endocrine disorder I15.2 Hypertension type: secondary to endocrine disorders Class 1 obesity E66.811 Elevated liver enzymes R74.8 Assessment & Plan Assessment & Plan (1) Diabetes: Code(s): E11.9 - Type 2 diabetes mellitus without complications Category: Medical Qualifiers: 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 complication detail: with diabetic retinopathy 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 complication status: with ophthalmic complications 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 terminal system operator insulin use: unspecified longterm insulin use status 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 macular edema: macular edema presence unspecified 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 type: due to underlying condition Diabetic retinopathy severity: with unspecified retinopathy severity Laterality: unspecified laterality Qualified Code(s): E08.319 - 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 due to underlying condition with unspecified diabetic retinopathy without macular edema (2) High cholesterol: Code(s): E78.00 - Pure hypercholesterolemia, unspecified Category: Medical (3) Hypertension: Code(s): I10 - Essential (primary) hypertension Category: Medical Qualifiers: Hypertension type: secondary to endocrine disorders Qualified Code(s): I15.2 - Hypertension secondary to endocrine disorders (4) Class 1 obesity: Code(s): E66.811 - Obesity, class 1 Category: Medical (5) Elevated liver enzymes: Code(s): R74.8 - Abnormal levels of other serum enzymes Category: Medical Plan A1c improved from 7.5% to 7.1% She is maxed out on metformin, Jardiance and Trulicity. Encouraged exercise. Continue current medications Encouraged weight loss She is up-to-date with her eye exam LDL cholesterol is controlled with rosuvastatin HDL is a little low As above, encouraged exercise Liver enzymes are elevated No recent ultrasound and I have ordered this today. Encouraged exercise and good hydration We discussed weight loss and exercise today. Patient will work on getting regular exercise at home consisting of marching in place or shadow boxing to music Orders: Orders US abdomen ho w elastography Today R74.8 - Abnormal levels of other serum enzymes Comprehensive [place]. Panel Fast Today E08.319 - 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 due to underlying condition with unspecified diabetic retinopathy without macular edema, Z00.00 - Encounter for general adult medical examination without abnormal findings Lipid Panel Today E08.319 - 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 due to underlying condition with unspecified diabetic retinopathy without macular edema, Z00.00 - Encounter for general adult medical examination without abnormal findings Hemoglobin A1c Today E08.319 - 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 due to underlying condition with unspecified diabetic retinopathy without macular edema, R73.01 - Impaired fasting glucose
[2025-09-02 10:48] VITALS: BP 136/63; PULSE 86; RESP 16; TEMP 36.6; O2SAT 100; BMI 33.5
--- OUTSIDE RECORDS SUMMARY | 2025-09-02 13:03 | XMS_ITS | Patient Health Record ---
Author Organization [facility] Address [address] [place] [id number] Care Team Providers Care Hat And Cap Opener Name Role Phone Etienne Monge Primary Care Provider Unavailab Michele Casey Unavailable [phone] Lit Chen Unavailable Unavailable Allergies Allergen (clinical [...] Status Risk Notes Problem Colon cancer screening (318529180) Colon cancer screening (Z12.11) Active confirmed Problem Gastroesophageal reflux disease without esophagitis (146221399) Gastroesophageal reflux disease without esophagitis (K21.9) Active confirmed Problem Anemia (458582765) Anemia (D64.9) Active confir med Problem Gastroesophageal reflux disease (disorder) (121004458) Chronic GERD (K21.9) Active confirmed Plan Of Treatment Future Test Test Name Order Date UPPER GI ENDOSCOPY 01/18/2024 COLONOSCOPY 01/18/2024 Insurance Providers Payer Name Payer Address Payer Phone Subscriber Number Group Number Insured Name Patient Relationship to Insured Coverage Start Date Coverage End Date [facility] [address] [address] [place], [place] [id number] MARTHA COHEN Self - patient is the insured Medical (General) History Medical History History ICD Code 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 Nzcl-ljcudlbml-Yj. Sheth Psoriasis Denies NC,CVA,renal disease Seasonal asthma GERD HTN Surgical History Surgery Date(Month/Year) Hospitalization History Reason Date(Month/Year)
--- OUTSIDE RECORDS SUMMARY | 2025-09-02 13:03 | XMS_ITS | Encounter Summary ---
Author Organization [facility] Address [address] [facility] [address] [place] [phone] Phone Care Team Providers Care Lens Finisher Name Role Phone Unknown, Unknown Primary Care Provider Eugene edmonds Encounter Details Date Type Department Care Team (Late st Contact Info) Description 08/18/2023 Transcribe Orders [facility] Specimen Processing [address] [place] [address] Unknown, Unknown, Social History Tobacco Use Types [...] on filedocumented in this encounter Care Teams Lens Finisher Relationship Specialty Start Date End Date Unknown, Unknown, PCP - General 08/17/23 documented as of this encounter Additional Source Comments The information contained in this document represents components of the legal health record. It is not the complete legal health record.[facility]
--- OUTSIDE RECORDS SUMMARY | 2025-09-02 13:04 | XMS_ITS | Clinical Summary ---
Author Organization [facility] Address [address] [address] Phone Care Team Providers Care Cvir Tech Name Role Phone Unknown, Unknown Primary Care [...] Active ferrous sulfate 325 mg (65 mg diomede iron) tablet TAKE ONE TABLET ORALLY DAILY [...] WELLSENSE NON NSPG PCP SILVER CLARITY CONNECTORCARE EGNARENSE NON NSPG PCP SILVER CLARITY CONNECTORCARE WELLSENSE NON NSPG PCP SILVER CLARITY CONNECTORCARE ENSE NON NSPG PCP SILVER CLARITY CONNECTORCARE ENSE NON NSPG PCP SILVER CLARITY CONNECTORCARE [address] [place], [place] [address]ENSE NON NSPG PCP SIL[facility] CLARITY CONNECTORCARE [place] [phone] Care Teams Cvir Tech Relationship Specialty Start Date End Date Unknown, Unknown, PCP - General 08/17/23 Additional Source Comments The information contained in this document represents components of the legal health record. It is not the complete legal health record.[facility]
== END 2025-09-02 11:41 | disposition home or self-care (01) ==
LOC: HO.HMCFM 10:37
PROVIDERS: PCP Family Medicine; Visit Provider Family Medicine
DX: I15.2 Hypertension secondary to endocrine disorders (principal); E08.319 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 due to underlying condition with unspecified diabetic retinopathy without macular edema; E66.811 Obesity, class 1; Z68.33 Body mass index [BMI] 33.0-33.9, adult; E78.00 Pure hypercholesterolemia, unspecified; R74.01 Elevation of levels of liver transaminase levels

== ENCOUNTER → 2025-09-02 10:36 | Outpatient (BNVA) | payer OTHER, SELFPAY | PROVIDERS: PCP Family Medicine; Visit Provider Family Medicine | DX: I10 Essential (primary) hypertension (principal); E08.319 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 due to underlying condition with unspecified diabetic retinopathy without macular edema; E78.00 Pure hypercholesterolemia, unspecified; E66.811 Obesity, class 1; R74.8 Abnormal levels of other serum enzymes | CPT/HCPCS: 99212 ==